=== PATIENT | female | born 1985 | race Hispanic/Latino ===

== ENCOUNTER 2018-03-01 13:12 | Emergency (ER) | payer SELFPAY ==
--- NOTE | 2018-03-01 13:46 | EDPHYS ---
Physician Documentation [facility] Name: Kaylie Hargrove Age: 32 yrs Sex: Female : 1985 Arrival Date: 03/01/2018 Time: 13:15 Bed 24 Private MD: ED Physician Andrea Abraham HPI: 03/01 14:13 This 32 yrs old Female presents to ER via Ambulatory with complaints of Eye kdr Swelling. 14:13 The patient is experiencing matting or discharge, pain, redness, tearing, Swelling, to kdr both eyes, More on the left than right. Onset: The symptoms/episode began/occurred gradually, 3 day(s) ago. Duration: the symptoms are continuous. Aggravated by blinking. Associated signs and symptoms: Pertinent positives: None. Patient does not utilize any form of vision correction. Severity of symptoms: At their worst the symptoms were mild in the emergency department the symptoms are unchanged. The patient has not experienced similar symptoms in the past. The patient has not recently seen a physician. 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 - Social history:: Smoking status: Patient/guardian denies using tobacco. ROS: 14:13 Constitutional: Negative for fever, chills, and weight loss, Eyes: Negative for injury, kdr pain, redness, and discharge, Neck: Negative for injury, pain, and swelling, Cardiovascular: Negative for chest pain, palpitations, and edema. 14:13 ENT: Positive for Exam: 15:34 Constitutional: This is a well developed, well nourished patient who is awake, alert, kdr and in no acute distress. Head/Face: Normocephalic, atraumatic. ENT: Nares patent. No nasal discharge, no septal abnormalities noted. Tympanic membranes are normal and external auditory canals are clear. Oropharynx with no redness, swelling, or masses, exudates, or evidence of obstruction, uvula midline. Mucous membranes moist. Neck: Trachea midline, no thyromegaly or masses palpated, and no cervical lymphadenopathy. Supple, full range of motion without nuchal rigidity, or vertebral point tenderness. No Meningismus. Chest/axilla: Normal chest wall appearance and motion. Nontender with no deformity. No lesions are appreciated. 15:34 Eyes: Periorbital structures: swelling, that is mild, on the left upper eyelid, Pupils: no acute changes, equal, round, and reactive to light and accomodation, Extraocular movements: intact throughout, Conjunctiva: injected, in the left eye, Corneas: are normal, Sclera: no appreciated abnormality, Anterior chamber: normal. 15:34 Eyes: No proptosis or any evidence of retrobulbar infection or problem. kdr Vital Signs: 13:18 BP 162 / 91; Pulse 67; Resp 16; Temp 97.4; Pulse Ox 100% on R/A; Weight 86.18 kg; la1 Height 5 ft. 3 in. (160.02 cm); 13:18 Body Mass Index 33.66 (86.18 kg, 160.02 cm) la1 MDM: 13:46 Patient medically screened. kdr 15:39 Data reviewed: vital signs, nurses notes. Counseling: I had a detailed discussion with kdr the patient and/or guardian regarding: the historical points, exam findings, and any diagnostic results supporting the discharge/admit diagnosis, the need for outpatient follow up. Administered Medications: 13:50 Drug: SOLU-Medrol 125 mg Route: IM; Site: right gluteus; 3 13:52 Follow up: Response: Medication administered at discharge. tl3 Disposition: 03/01/18 13:46 Discharged to Home. Impression: Conjunctivitis. - Condition is Stable. - Discharge Instructions: Bacterial Conjunctivitis, [id number]. - Prescriptions for Medrol (Delvin) 4 mg Oral Tablets, Dose Pack - take 1 tablet by ORAL route as directed - follow package instructions; 1 packet. Erythromycin 5 mg/gram (0.5 %) Ophthalmic Ointment - apply 1 centimeter by OPHTHALMIC route 2-3 times daily for 7 days; 1 tube. - Medication Reconciliation Form, Thank You Letter, Antibiotic Education, Prescription Opioid Use, Work release form form. - Follow up: Private Physician; When: 2 - 3 days; Reason: If symptoms return, Further diagnostic work-up, Recheck today's complaints, Continuance of care, Re-evaluation by your physician. - Problem is new. - Symptoms are unchanged. Signatures: Andrea Abraham MD MD kdr Daniel Brasher RN RN la1 Vilma Fonseca, RN RN tl3
--- NOTE | 2018-03-01 13:46 | ER ---
Nurse's Notes [facility] Name: Kaylie Hargrove Age: 32 yrs Sex: Female : 1985 Arrival Date: 03/01/2018 Time: 13:15 Bed 24 Private MD: Diagnosis: Conjunctivitis Presentation: 03/01 13:17 Presenting complaint: Patient states: I have had swelling around my left eye for 3 la1 days. Transition of care: patient was not received from another setting of care. Onset of symptoms was March 01, 2018. Care prior to arrival: None. 13:17 Method Of Arrival: Ambulatory la1 13:17 Acuity: BALTAZAR 4 la1 Triage Assessment: 13:25 General: Appears in no apparent distress. Behavior is calm, cooperative. Pain:. 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 - Social history:: Smoking status: Patient/guardian denies using tobacco. Screenin:43 Abuse screen: Denies threats or abuse. Nutritional screening: No deficits noted. tl3 Tuberculosis screening: No symptoms or risk factors identified. Fall Risk None identified. Assessment: 13:43 Reassessment: pt reports that left eye has been hurting for three days, today right eye tl3 started hurting as well. Mild swelling noted to left eyelid. pt reported crusting this am when awaking, eyes are not injected or actively draining. General: Appears uncomfortable, well groomed, well developed, well nourished. Pain: Complains of pain in right eye and left eye. Neuro: Level of Consciousness is awake, alert, obeys commands, Oriented to person, place, time, situation, Appropriate for age. Cardiovascular: Heart tones S1 S2 present Capillary refill < 3 seconds in bilateral fingers. Respiratory: Airway is patent Trachea midline Respiratory effort is even, unlabored, Respiratory pattern is regular, symmetrical, Breath sounds are clear bilaterally. GI: No signs and/or symptoms were reported involving the gastrointestinal system. : No signs and/or symptoms were reported regarding the genitourinary system. EENT: No signs and/or symptoms were reported regarding the EENT system. Derm: No signs and/or symptoms reported regarding the dermatologic system. Musculoskeletal: No signs and/or symptoms reported regarding the musculoskeletal system. Vital Signs: 13:18 BP 162 / 91; Pulse 67; Resp 16; Temp 97.4; Pulse Ox 100% on R/A; Weight 86.18 kg; la1 Height 5 ft. 3 in. (160.02 cm); 13:18 Body Mass Index 33.66 (86.18 kg, 160.02 cm) la1 ED Course: 13:15 Patient arrived in ED. tw3 13:17 Triage completed. la1 13:18 Arm band placed on left wrist. la1 13:19 Andrea Abraham MD is Attending Physician. kdr 13:26 Vilma Fonseca, RN is Primary Nurse. tl3 13:43 Patient has correct armband on for positive identification. Bed in low position. Call tl3 light in reach. 13:43 No provider procedures requiring assistance completed. tl3 14:42 Patient did not have IV access during this emergency room visit. tl3 Administered Medications: 13:50 Drug: SOLU-Medrol 125 mg Route: IM; Site: right gluteus; tl3 13:52 Follow up: Response: Medication administered at discharge. tl3 Outcome: 13:46 Discharge ordered by . kdr 13:59 Patient left the ED. tl3 14:41 Discharged to home ambulatory. tl3 14:41 Condition: good 14:41 Discharge instructions given to patient, Instructed on discharge instructions, follow up and referral plans. medication usage, Demonstrated understanding of instructions, follow-up care, medications, Prescriptions given X 2. Signatures: Andrea Abraham MD MD kdr Daniel Brasher RN RN la1 Rebecca Triana tw3 Vilma Fonseca, PEGGY RN tl3 Corrections: (The following items were deleted from the chart) 13:53 13:50 SOLU-Medrol 125 mg IM in left gluteus tl3 tl3
[2018-03-01] MEDS ORDERED: METHYLPREDNISOLONE 125 MG INJ ONE (13:48)
== END 2018-03-01 13:59 | disposition home or self-care (01) ==
LOC: ER 13:12
DX: H10.9 Unspecified conjunctivitis (principal); Z88.1 Allergy status to other antibiotic agents
CPT/HCPCS: 96372; 99283; J2930

== ENCOUNTER 2018-07-21 20:55 | Emergency (ER) | payer SELFPAY ==
[2018-07-21] MEDS ORDERED: LEVALBUTEROL 1.25 MG/3 ML NEB ONE (21:19)
[2018-07-21] MEDS ORDERED: predniSONE 20 MG TAB ONE (21:20)
[2018-07-21] MEDS ORDERED: HYDROCODONE/CHLORPHEN 5 ML/OSYR ONE (21:20)
--- NOTE | 2018-07-21 21:53 | RAD REPORT ---
EXAM DESCRIPTION: Phyllis Single View07/21/2018 9:32 pm CLINICAL HISTORY: CHEST PAIN COMPARISON: none FINDINGS: The lungs appear clear of acute infiltrate. The heart is normal size IMPRESSION: No acute abnormalities displayed
--- NOTE | 2018-07-21 21:59 | ER ---
Nurse's Notes [facility] Name: Kaylie Hargrove Age: 32 yrs Sex: Female : 1985 Arrival Date: 07/21/2018 Time: 20:59 Bed 17 Private MD: Diagnosis: Asthma;Acute bronchitis;Acute suppurative otitis media Presentation: 07/21 21:00 Presenting complaint: Patient states: that for the past 2 days she has had cough with green sputum, chest congestion, right ear pain and has been light headed. Transition of care: patient was not received from another setting of care. Onset of symptoms was July 19, 2018. Risk Assessment: Do you want to hurt yourself or someone else?. Initial Sepsis Screen: Does the patient meet any 2 criteria? No. Patient's initial sepsis screen is negative. Does the patient have a suspected source of infection? No. Patient's initial sepsis screen is negative. Care prior to arrival: Medication(s) given: Mucinex and cough medication OTC. 21:00 Method Of Arrival: Ambulatory fc 21:00 Acuity: BALTAZAR 3 fc Triage Assessment: 21:09 General: Appears comfortable, obese, Behavior is calm, cooperative, appropriate for age. Pain: Complains of pain in right ear, throat and chest Pain currently is 10 out of 10 on a pain scale. Quality of pain is described as aching, Pain began 2-3 days ago. Is continuous, Aggravated by deep breathing. EENT: Reports pain in throat and right ear. Neuro: Level of Consciousness is awake, alert, obeys commands, Oriented to person, place, time, situation. Cardiovascular: No deficits noted. Respiratory: Reports shortness of breath cough that is productive, pain with cough pain with respiration. Respiratory: Onset: The symptoms/episode began/occurred gradually, the patient has mild shortness of breath. GI: No deficits noted. : No deficits noted. Derm: Skin is pink, warm \T\ dry. Musculoskeletal: Circulation, motion, and sensation intact. Capillary refill < 3 seconds, Range of motion: intact in all extremities. 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 - Social history:: Smoking status: Patient/guardian denies using tobacco, Patient/guardian denies using alcohol, street drugs. - Ebola Screening: : Patient negative for fever greater than or equal to 101.5 degrees Fahrenheit, and additional compatible Ebola Virus Disease symptoms Patient denies exposure to infectious person Patient denies travel to an Ebola-affected area in the 21 days before illness onset. Screenin:09 Abuse screen: Denies threats or abuse. Nutritional screening: No deficits noted. fc Tuberculosis screening: No symptoms or risk factors identified. Fall Risk None identified. Assessment: 21:20 General: Appears in no apparent distress. comfortable, Behavior is calm, cooperative. rv Pain: Denies pain. Neuro: Level of Consciousness is awake, alert, obeys commands, Oriented to person, place, time, situation. Cardiovascular: Capillary refill < 3 seconds Rhythm is regular. Respiratory: Airway is patent Respiratory effort is even, Breath sounds are clear bilaterally. GI: No signs and/or symptoms were reported involving the gastrointestinal system. : No signs and/or symptoms were reported regarding the genitourinary system. EENT: No signs and/or symptoms were reported regarding the EENT system. Derm: Skin is intact. Vital Signs: 21:00 BP 128 / 86; Pulse 83; Resp 18; Temp 98.8(O); Pulse Ox 99% on R/A; Weight 86.18 kg (R); fc Height 5 ft. 3 in. (160.02 cm) (R); Pain 10/10; 21:00 Body Mass Index 33.66 (86.18 kg, 160.02 cm) ED Course: 20:59 Patient arrived in ED. es 21:00 Arm band placed on Patient placed in an exam room, on a stretcher. 21:00 Patient has correct armband on for positive identification. Bed in low position. Call light in reach. 21:01 Mario Leyva PA is PHCP. jr8 21:01 Robert Denis MD is Attending Physician. jr8 21:07 Triage completed. 21:20 Initial Neb Treatment Given as ordered Patient was instructed and evaluated on rv procedure Patient tolerated procedure well without adverse effect. 21:32 X-ray completed. Portable x-ray completed in exam room. Patient tolerated procedure ml well. 21:33 XRAY Chest (1 view) In Process Unspecified. EDMS 22:29 No provider procedures requiring assistance completed. Patient did not have IV access rv during this emergency room visit. Administered Medications: 21:19 Drug: predniSONE 60 mg Route: PO; rv 21:37 Follow up: Response: No adverse reaction rv 21:19 Drug: Xopenex 1.25 mg Route: Inhalation; rv 21:19 Drug: Tussionex Pennkinetic ER 5 ml Route: PO; rv 21:37 Follow up: Response: No adverse reaction rv Outcome: 21:59 Discharge ordered by MD. sierra 22:29 Discharged to home ambulatory. rv 22:29 Condition: improved 22:29 Discharge instructions given to patient, Instructed on discharge instructions, follow up and referral plans. medication usage, Demonstrated understanding of instructions, follow-up care, medications, Prescriptions given X 2. 22:30 Patient left the ED. rv Signatures: Dispatcher [employer] EDMS Nica Jung Felicia, RN RN Candie Villasenor Josh, PA PA jr8 Jacques Angel RN RN rv Corrections: (The following items were deleted from the chart) 21:09 21:08 BP 128 / 86; Pulse 83bpm; Resp 18bpm; Pulse Ox 99% RA; Temp 98.8F Oral; 86.18 kg fc Reported; Height 5 ft. 3 in. Reported; BMI: 33.6; Pain 10/10; fc
--- NOTE | 2018-07-21 22:00 | EDPHYS ---
Physician Documentation [facility] Name: Kaylie Hargrove Age: 32 yrs Sex: Female : 1985 Arrival Date: 07/21/2018 Time: 20:59 Bed 17 Private MD: ED Physician Robert Denis HPI: 07/21 21:56 This 32 yrs old Female presents to ER via Ambulatory with complaints of Chest jr8 Congestion, Dizziness, Cough, Breathing Difficulty. 21:56 Onset: The symptoms/episode began/occurred acutely, 3 day(s) ago. Severity of symptoms: jr8 At their worst the symptoms were moderate, in the emergency department the symptoms are unchanged. Modifying factors: The symptoms are alleviated by nothing, the symptoms are aggravated by nothing. Associated signs and symptoms: Pertinent positives: chest pain, with cough. The patient has not experienced similar symptoms in the past. The patient has not recently seen a physician. 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 - Social history:: Smoking status: Patient/guardian denies using tobacco, Patient/guardian denies using alcohol, street drugs. - Ebola Screening: : Patient negative for fever greater than or equal to 101.5 degrees Fahrenheit, and additional compatible Ebola Virus Disease symptoms Patient denies exposure to infectious person Patient denies travel to an Ebola-affected area in the 21 days before illness onset. ROS: 21:56 Eyes: Negative for injury, pain, redness, and discharge, ENT: Negative for injury, jr8 pain, and discharge, Neck: Negative for injury, pain, and swelling, Abdomen/GI: Negative for abdominal pain, nausea, vomiting, diarrhea, and constipation, Back: Negative for injury and pain, MS/Extremity: Negative for injury and deformity, Skin: Negative for injury, rash, and discoloration, Neuro: Negative for headache, weakness, numbness, tingling, and seizure. 21:56 Cardiovascular: Positive for chest pain, with cough, Negative for edema, orthopnea, palpitations, paroxysmal nocturnal dyspnea. 21:56 Respiratory: Positive for cough, with green sputum, shortness of breath, wheezing. Exam: 21:56 Eyes: Pupils equal round and reactive to light, extra-ocular motions intact. Lids and jr8 lashes normal. Conjunctiva and sclera are non-icteric and not injected. Cornea within normal limits. Periorbital areas with no swelling, redness, or edema. ENT: Nares patent. No nasal discharge, no septal abnormalities noted. Right TM with dullness, fluid levels, and erythema. Left with TM without acute finding. External ears and auditory canals without acute finding. Oropharynx with no redness, swelling, or masses, exudates, or evidence of obstruction, uvula midline. Mucous membranes moist. Neck: Trachea midline, no thyromegaly or masses palpated, and no cervical lymphadenopathy. Supple, full range of motion without nuchal rigidity, or vertebral point tenderness. No Meningismus. Cardiovascular: Regular rate and rhythm with a normal S1 and S2. No gallops, murmurs, or rubs. Normal PMI, no JVD. No pulse deficits. Abdomen/GI: Soft, non-tender, with normal bowel sounds. No distension or tympany. No guarding or rebound. No evidence of tenderness throughout. Back: No spinal tenderness. No costovertebral tenderness. Full range of motion. Skin: Warm, dry with normal turgor. Normal color with no rashes, no lesions, and no evidence of cellulitis. MS/ Extremity: Pulses equal, no cyanosis. Neurovascular intact. Full, normal range of motion. Neuro: Awake and alert, GCS 15, oriented to person, place, time, and situation. Cranial nerves II-XII grossly intact. Motor strength 5/5 in all extremities. Sensory grossly intact. Cerebellar exam normal. Normal gait. 21:56 Respiratory: the patient does not display signs of respiratory distress, Respirations: normal, Breath sounds: wheezing: expiratory that is mild, is heard in the left upper lobe. Vital Signs: 21:00 BP 128 / 86; Pulse 83; Resp 18; Temp 98.8(O); Pulse Ox 99% on R/A; Weight 86.18 kg (R); fc Height 5 ft. 3 in. (160.02 cm) (R); Pain 10/10; 21:00 Body Mass Index 33.66 (86.18 kg, 160.02 cm) fc MDM: 21:05 Patient medically screened. jr8 21:56 Data reviewed: vital signs, nurses notes, radiologic studies, plain films, and as a jr8 result, I will discharge patient. Data interpreted: Pulse oximetry: on room air is 99 %. Interpretation: normal. Counseling: I had a detailed discussion with the patient and/or guardian regarding: the historical points, exam findings, and any diagnostic results supporting the discharge/admit diagnosis, radiology results, the need for outpatient follow up, a family practitioner, to return to the emergency department if symptoms worsen or persist or if there are any questions or concerns that arise at home. 07/21 21:08 Order name: XRAY Chest (1 view); Complete Time: 21:56 jr8 Administered Medications: 21:19 Drug: predniSONE 60 mg Route: PO; rv 21:37 Follow up: Response: No adverse reaction rv 21:19 Drug: Xopenex 1.25 mg Route: Inhalation; rv 21:19 Drug: Tussionex Pennkinetic ER 5 ml Route: PO; rv 21:37 Follow up: Response: No adverse reaction rv Disposition: 07/22 00:15 Co-signature as Attending Physician, Robert Denis MD. pkprincess Disposition: 07/21/18 21:59 Discharged to Home. Impression: Asthma, Acute bronchitis, Acute suppurative otitis media. - Condition is Stable. - Discharge Instructions: Acute Bronchitis, Adult, Otitis Media, Adult, Asthma, Acute Bronchospasm, Dental Work and . - Prescriptions for Zithromax Z- Delvin 250 mg Oral Tablet - take 1 tablet by ORAL route as directed for 5 days Day 1 - take two (2) tablets one time. Day 2, 3, 4 , 5 take one (1) tablet once daily.; 6 tablet. Prednisone 20 mg Oral Tablet - take 2 tablet by ORAL route once daily for 5 days; 10 tablet. - Medication Reconciliation Form, Thank You Letter, Antibiotic Education, Prescription Opioid Use, Work release form form. - Follow up: Private Physician; When: 1 week; Reason: Recheck today's complaints, Continuance of care, Re-evaluation by your physician. - Problem is new. - Symptoms have improved. Signatures: Dispatcher [employer] EDRobert Madden MD MD pkFanny Chen RN RN Mario Stinson PA PA jr8 Jacques Angel, RN RN rv Corrections: (The following items were deleted from the chart) 07/21 22:30 21:59 07/21/2018 21:59 Discharged to Home. Impression: Asthma; Acute bronchitis; Acute rv suppurative otitis media. Condition is Stable. Forms are Medication Reconciliation Form, Thank You Letter, Antibiotic Education, Prescription Opioid Use. Follow up: Private Physician; When: 1 week; Reason: Recheck today's complaints, Continuance of care, Re-evaluation by your physician. Problem is new. Symptoms have improved. jr8
== END 2018-07-21 22:30 | disposition home or self-care (01) ==
LOC: ER 20:55
DX: J20.9 Acute bronchitis, unspecified (principal); J45.909 Unspecified asthma, uncomplicated; H66.009 Acute suppurative otitis media without spontaneous rupture of ear drum, unspecified ear; E66.9 Obesity, unspecified; Z68.33 Body mass index [BMI] 33.0-33.9, adult; Z88.1 Allergy status to other antibiotic agents
CPT/HCPCS: 71045; 99284; J7512

== ENCOUNTER 2018-10-13 22:41 | Emergency (ER) | payer SELFPAY ==
--- NOTE | 2018-10-13 23:16 | ER ---
Nurse's Notes [facility] Name: Kaylie Hargrove Age: 32 yrs Sex: Female : 1985 Arrival Date: 10/13/2018 Time: 22:46 Bed 18 Private MD: Diagnosis: Hordeolum externum left upper eyelid Presentation: 10/13 23:01 Presenting complaint: Patient states: Woke up this morning with bump to outer left lp1 upper eyelid, painful, states "it feels like its draining and making my vision blurry"; Denies any fever. Transition of care: patient was not received from another setting of care. Onset of symptoms was October 13, 2018. Risk Assessment: Do you want to hurt yourself or someone else? Patient reports no desire to harm self or others. Initial Sepsis Screen: Does the patient meet any 2 criteria? No. Patient's initial sepsis screen is negative. Does the patient have a suspected source of infection? No. Patient's initial sepsis screen is negative. Care prior to arrival: None. 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 - Social history:: Smoking status: Patient/guardian denies using tobacco. - Ebola Screening: : No symptoms or risks identified at this time. Screenin:03 Abuse screen: Denies threats or abuse. Denies injuries from another. Nutritional lp1 screening: No deficits noted. Tuberculosis screening: No symptoms or risk factors identified. Fall Risk None identified. Assessment: 23:04 General: Appears in no apparent distress. uncomfortable, Behavior is calm, cooperative, jd3 appropriate for age. Pain: Complains of pain in left eye Quality of pain is described as pressure, sharp. Neuro: Level of Consciousness is awake, alert, obeys commands, Oriented to person, place, time, situation. Cardiovascular: Capillary refill < 3 seconds Patient's skin is warm and dry. Respiratory: Airway is patent Respiratory effort is even, unlabored, Respiratory pattern is regular, symmetrical. GI: No signs and/or symptoms were reported involving the gastrointestinal system. : No signs and/or symptoms were reported regarding the genitourinary system. EENT: Sclera/Cornea are clear in right eye and left eye Reports pain in left eye. Derm: Skin is intact, Skin is dry, Skin is normal, Skin temperature is warm. Musculoskeletal: Circulation, motion, and sensation intact. Range of motion: intact in all extremities. Vital Signs: 23:02 BP 152 / 99; Pulse 80; Resp 18; Temp 99(O); Pulse Ox 100% on R/A; Weight 83.46 kg; lp1 Height 5 ft. 2 in. (157.48 cm); Pain 10/10; 23:31 BP 148 / 72; Pulse 78; Resp 18; Pulse Ox 99% on R/A; lp1 23:02 Body Mass Index 33.65 (83.46 kg, 157.48 cm) lp1 Visual Acuity: 23:04 Left Eye Visual acuity 20/70, Pupil size 3 mm, Normal, React To Light, Reactive To jd3 Accomodation; Right Eye Visual acuity 20/15, Pupil size 3 mm, Normal, React To Light, Reactive To Accomodation; Both Eyes Visual acuity 20/25; Without Lenses; ED Course: 22:46 Patient arrived in ED. es 23:01 Nabeel Devine, VIVIANA is PHCP. pm1 23:01 Marco A Wilson MD is Attending Physician. pm1 23:02 Triage completed. lp1 23:03 Arm band placed on right wrist. lp1 23:03 Patient has correct armband on for positive identification. lp1 23:04 Jae Garcia RN is Primary Nurse. jd3 23:28 No provider procedures requiring assistance completed. Patient did not have IV access lp1 during this emergency room visit. Administered Medications: 23:39 Drug: Tylenol 1000 mg Route: PO; lp1 23:39 Follow up: Response: Medication administered at discharge. lp1 Outcome: 23:15 Discharge ordered by . pm1 23:39 Discharged to home ambulatory. lp1 23:39 Condition: good 23:39 Discharge instructions given to patient, Instructed on discharge instructions, follow up and referral plans. medication usage, Demonstrated understanding of instructions, follow-up care, medications, Prescriptions given X 1. 23:39 Patient left the ED. lp1 Signatures: Nica Jung Laura, RN RN lp1 Nabeel Devine, LEAD SYSTEMS ARCHITECT LEAD SYSTEMS ARCHITECT pm1 Jae Garcia RN RN jd3
--- NOTE | 2018-10-13 23:16 | EDPHYS ---
Physician Documentation [facility] Name: Kaylie Hargrove Age: 32 yrs Sex: Female : 1985 Arrival Date: 10/13/2018 Time: 22:46 Bed 18 Private MD: ED Physician Marco A Wilson HPI: 10/13 23:11 This 32 yrs old Female presents to ER via Ambulatory with complaints of Left pm1 Eyelid swelling and pain. 23:11 The patient is experiencing pain, to the left eye, caused by an unknown mechanism. pm1 Onset: The symptoms/episode began/occurred this morning. Duration: the symptoms are continuous. Alleviated by heat application. Associated signs and symptoms: Pertinent negatives: fever. Patient does not utilize any form of vision correction. Severity of symptoms: in the emergency department the symptoms have improved. The patient has not experienced similar symptoms in the past. The patient has not recently seen a physician. 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 - Social history:: Smoking status: Patient/guardian denies using tobacco. - Ebola Screening: : No symptoms or risks identified at this time. ROS: 23:11 Constitutional: Negative for fever, chills, and weight loss. pm1 23:11 ENT: Negative for injury, pain, and discharge, Neck: Negative for injury, pain, and swelling, Cardiovascular: Negative for chest pain, palpitations, and edema, Respiratory: Negative for shortness of breath, cough, wheezing, and pleuritic chest pain, Abdomen/GI: Negative for abdominal pain, nausea, vomiting, diarrhea, and constipation, Back: Negative for injury and pain, MS/Extremity: Negative for injury and deformity, Skin: Negative for injury, rash, and discoloration, Neuro: Negative for headache, weakness, numbness, tingling, and seizure. 23:11 Eyes: Positive for pain, swelling, of the lateral aspect of left upper eyelid, Negative for discharge, itching, matting. Exam: 23:11 Constitutional: This is a well developed, well nourished patient who is awake, alert, pm1 and in no acute distress. Head/Face: Normocephalic, atraumatic. 23:11 Neck: Trachea midline, no thyromegaly or masses palpated, and no cervical lymphadenopathy. Supple, full range of motion without nuchal rigidity, or vertebral point tenderness. No Meningismus. Chest/axilla: Normal chest wall appearance and motion. Nontender with no deformity. No lesions are appreciated. Cardiovascular: Regular rate and rhythm with a normal S1 and S2. No gallops, murmurs, or rubs. Normal PMI, no JVD. No pulse deficits. Respiratory: Lungs have equal breath sounds bilaterally, clear to auscultation and percussion. No rales, rhonchi or wheezes noted. No increased work of breathing, no retractions or nasal flaring. Abdomen/GI: Soft, non-tender, with normal bowel sounds. No distension or tympany. No guarding or rebound. No evidence of tenderness throughout. Back: No spinal tenderness. No costovertebral tenderness. Full range of motion. Skin: Warm, dry with normal turgor. Normal color with no rashes, no lesions, and no evidence of cellulitis. MS/ Extremity: Pulses equal, no cyanosis. Neurovascular intact. Full, normal range of motion. 23:11 Eyes: Periorbital structures: appear normal, Pupils: no acute changes, normal size, shape is regular, Extraocular movements: intact throughout, Conjunctiva: normal, no chemosis, no excoriation, no exudate, no injection, no subconjunctival hemorrhage no abnormal tearing, Corneas: are normal, no acute changes, no evidence of abrasion, no foreign body, Sclera: no appreciated abnormality, Lids and lashes: stye, on the left lid. 23:11 Neuro: Orientation: is normal, Motor: is normal, Gait: is steady, at a normal pace, without difficulty. Vital Signs: 23:02 BP 152 / 99; Pulse 80; Resp 18; Temp 99(O); Pulse Ox 100% on R/A; Weight 83.46 kg; lp1 Height 5 ft. 2 in. (157.48 cm); Pain 10/10; 23:31 BP 148 / 72; Pulse 78; Resp 18; Pulse Ox 99% on R/A; lp1 23:02 Body Mass Index 33.65 (83.46 kg, 157.48 cm) lp1 Visual Acuity: 23:04 Left Eye Visual acuity 20/70, Pupil size 3 mm, Normal, React To Light, Reactive To jd3 Accomodation; Right Eye Visual acuity 20/15, Pupil size 3 mm, Normal, React To Light, Reactive To Accomodation; Both Eyes Visual acuity 20/25; Without Lenses; MDM: 23:01 Patient medically screened. pm1 23:14 Data reviewed: vital signs. Counseling: I had a detailed discussion with the patient pm1 and/or guardian regarding: the historical points, exam findings, and any diagnostic results supporting the discharge/admit diagnosis, the need for outpatient follow up, to return to the emergency department if symptoms worsen or persist or if there are any questions or concerns that arise at home. Administered Medications: 23:39 Drug: Tylenol 1000 mg Route: PO; lp1 23:39 Follow up: Response: Medication administered at discharge. lp1 Disposition: 10/13/18 23:15 Discharged to Home. Impression: Hordeolum externum left upper eyelid. - Condition is Stable. - Discharge Instructions: Stye. - Prescriptions for Erythromycin 5 mg/gram (0.5 %) Ophthalmic Ointment - apply 1 centimeter by OPHTHALMIC route every 8 hours for 7 days; 1 tube. - Work release form, Medication Reconciliation Form, Thank You Letter, Antibiotic Education form. - Follow up: Emergency Department; When: As needed; Reason: Worsening of condition. Follow up: Private Physician; When: 2 - 3 days; Reason: Recheck today's complaints, Continuance of care, Re-evaluation by your physician. - Problem is new. - Symptoms have improved. Addendum: 10/17/2018 04:01 Co-signature as Attending Physician, Marco A Wilson MD. g s Signatures: Yvette Borrero, PEGGY RN lp1 Nabeel Devine, DURALUMIN MECHANIC DURALUMIN MECHANIC pm1 Marco A Wilson MD MD Corrections: (The following items were deleted from the chart) 10/13 23:39 23:15 10/13/2018 23:15 Discharged to Home. Impression: Hordeolum externum left upper lp1 eyelid. Condition is Stable. Forms are Medication Reconciliation Form, Thank You Letter, Antibiotic Education, Prescription Opioid Use. Follow up: Emergency Department; When: As needed; Reason: Worsening of condition. Follow up: Private Physician; When: 2 - 3 days; Reason: Recheck today's complaints, Continuance of care, Re-evaluation by your physician. Problem is new. Symptoms have improved. pm1
[2018-10-13] MEDS ORDERED: ACETAMINOPHEN 500 MG TAB ONE ×2 (23:44)
== END 2018-10-13 23:39 | disposition home or self-care (01) ==
LOC: ER 22:41
DX: H00.014 Hordeolum externum left upper eyelid (principal)
CPT/HCPCS: 99283

== ENCOUNTER 2019-04-25 16:05 | Emergency (ER) | payer OTHER, SELFPAY ==
--- NOTE | 2019-04-25 17:06 | ER ---
Nurse's Notes [facility] Name: Kaylie Hargrove Age: 33 yrs Sex: Female : 1985 Arrival Date: 04/25/2019 Time: 16:07 Bed 10 Private MD: Diagnosis: Pain in right forearm Presentation: 04/25 16:10 Presenting complaint: Patient states: yesterday i smashed my RIGHT arm, i was closing tw2 the ladder and it smushed my arm, on my forearm wrist area. Transition of care: patient was not received from another setting of care. Onset of symptoms was April 25, 2019. Risk Assessment: Do you want to hurt yourself or someone else? Patient reports no desire to harm self or others. Initial Sepsis Screen: Does the patient meet any 2 criteria? No. Patient's initial sepsis screen is negative. Does the patient have a suspected source of infection? No. Patient's initial sepsis screen is negative. Care prior to arrival: None. 16:10 Method Of Arrival: Ambulatory tw2 16:10 Acuity: BALTAZAR 4 tw2 Triage Assessment: 16:11 General: Appears in no apparent distress. Behavior is calm, cooperative, appropriate tw2 for age. Pain: Complains of pain in right arm. Musculoskeletal: Range of motion: intact in all extremities, Swelling present in dorsal aspect of right forearm. Injury Description: ladder closed on right forearm. 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 - Social history:: Smoking status: . - Ebola Screening: : Patient denies travel to an Ebola-affected area in the 21 days before illness onset. Screenin:26 Abuse screen: Denies threats or abuse. Nutritional screening: No deficits noted. tw2 Tuberculosis screening: No symptoms or risk factors identified. Fall Risk None identified. Assessment: 16:25 General: Appears in no apparent distress. Behavior is calm, cooperative, appropriate tw2 for age. Pain: Complains of pain in right arm Cardiovascular: Patient's skin is warm and dry. Respiratory: Airway is patent Respiratory effort is even, unlabored, Respiratory pattern is regular, symmetrical. Musculoskeletal: Range of motion: limited in right wrist Swelling present in right arm. 17:12 Reassessment: Patient appears in no apparent distress at this time. No changes from tw2 previously documented assessment. Patient is alert, oriented x 3, equal unlabored respirations, skin warm/dry/pink. Vital Signs: 16:12 BP 151 / 92; Pulse 72; Resp 18; Temp 97.7; Pulse Ox 98% on R/A; Weight 86.18 kg; Height tw2 5 ft. 2 in. (157.48 cm); Pain 8/10; 16:12 Body Mass Index 34.75 (86.18 kg, 157.48 cm) tw2 ED Course: 16:07 Patient arrived in ED. rg4 16:11 Triage completed. tw2 16:11 Arm band placed on. tw2 16:12 Bed in low position. Call light in reach. tw2 16:25 Dasia Logan [facility]-C [facility]. kb 16:25 Asher Smith MD is Attending Physician. kb 16:25 Judith Ruth, PEGGY is Primary Nurse. tw2 16:57 Forearm Right XRAY In Process Unspecified. EDMS 17:12 No provider procedures requiring assistance completed. Patient did not have IV access tw2 during this emergency room visit. Administered Medications: 16:58 Drug: [place] 5 mg-325 mg 1 tabs Route: PO; tw2 17:12 Follow up: Response: No adverse reaction; Pain is decreased tw2 Outcome: 17:06 Discharge ordered by . kb 17:12 Discharged to home ambulatory, with family. tw2 17:12 Condition: stable 17:12 Discharge instructions given to patient, family, Instructed on discharge instructions, follow up and referral plans. medication usage, Demonstrated understanding of instructions, follow-up care, medications, Prescriptions given X 1. 17:12 Patient left the ED. tw2 Signatures: Dispatcher [employer] EDMS Dasia Logan FNP-C FNP-Ckb Wise, Tara, RN RN tw2 Rhoda Florez rg4
--- NOTE | 2019-04-25 17:06 | EDPHYS ---
Physician Documentation [facility] Name: Kaylie Hargrove Age: 33 yrs Sex: Female : 1985 Arrival Date: 04/25/2019 Time: 16:07 Bed 10 Private MD: ED Physician Asher Smith HPI: 04/25 16:29 This 33 yrs old Female presents to ER via Ambulatory with complaints of Arm kb Injury. 16:29 The patient or guardian complains of injury, pain, swelling. The complaints affect the kb right forearm. Context: The problem was sustained at home, resulted from a crush injury, ladder closed on arm. Onset: The symptoms/episode began/occurred yesterday. Treatment prior to arrival includes: no previous treatment. Modifying factors: The symptoms are alleviated by nothing. the symptoms are aggravated by nothing. Associated signs and symptoms: Pertinent positives: pain, swelling, Pertinent negatives: decreased range of motion, deformity, erythema, fever, nausea, numbness, tingling, vomiting, warmth, weakness. Severity of symptoms: At their worst the symptoms were moderate, in the emergency department the symptoms are unchanged. The patient has not experienced similar symptoms in the past. The patient has not recently seen a physician. Pt reports she was shutting a ladder and it closed on her right forearm. Occurred yesterday. 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 - Social history:: Smoking status: . - Ebola Screening: : Patient denies travel to an Ebola-affected area in the 21 days before illness onset. ROS: 16:29 Constitutional: Negative for fever, chills, and weight loss, Neck: Negative for injury, kb pain, and swelling, Cardiovascular: Negative for chest pain, palpitations, and edema, Respiratory: Negative for shortness of breath, cough, wheezing, and pleuritic chest pain, Abdomen/GI: Negative for abdominal pain, nausea, vomiting, diarrhea, and constipation, Skin: Negative for injury, rash, and discoloration, Neuro: Negative for headache, weakness, numbness, tingling, and seizure. 16:29 MS/extremity: Positive for injury or acute deformity, pain, swelling, of the dorsal aspect of right forearm. Exam: 16:28 Constitutional: This is a well developed, well nourished patient who is awake, alert, kb and in no acute distress. Head/Face: Normocephalic, atraumatic. Chest/axilla: Normal chest wall appearance and motion. Nontender with no deformity. No lesions are appreciated. Cardiovascular: Regular rate and rhythm with a normal S1 and S2. No gallops, murmurs, or rubs. Normal PMI, no JVD. No pulse deficits. Respiratory: Lungs have equal breath sounds bilaterally, clear to auscultation and percussion. No rales, rhonchi or wheezes noted. No increased work of breathing, no retractions or nasal flaring. Abdomen/GI: Soft, non-tender, with normal bowel sounds. No distension or tympany. No guarding or rebound. No evidence of tenderness throughout. Back: No spinal tenderness. No costovertebral tenderness. Full range of motion. Skin: Warm, dry with normal turgor. Normal color with no rashes, no lesions, and no evidence of cellulitis. Neuro: Awake and alert, GCS 15, oriented to person, place, time, and situation. Cranial nerves II-XII grossly intact. Motor strength 5/5 in all extremities. Sensory grossly intact. Cerebellar exam normal. Normal gait. 16:28 Musculoskeletal/extremity: Extremities: grossly normal except: noted in the dorsal aspect of right forearm: pain, swelling, ROM: intact in all extremities, Circulation is intact in all extremities. Sensation intact. Vital Signs: 16:12 BP 151 / 92; Pulse 72; Resp 18; Temp 97.7; Pulse Ox 98% on R/A; Weight 86.18 kg; Height tw2 5 ft. 2 in. (157.48 cm); Pain 8/10; 16:12 Body Mass Index 34.75 (86.18 kg, 157.48 cm) tw2 MDM: 16:26 Patient medically screened. kb 16:28 Data reviewed: vital signs, nurses notes. Data interpreted: Pulse oximetry: on room air kb is 98 %. Interpretation: normal. 17:05 Counseling: I had a detailed discussion with the patient and/or guardian regarding: the kb historical points, exam findings, and any diagnostic results supporting the discharge/admit diagnosis, radiology results, the need for outpatient follow up, a family practitioner, to return to the emergency department if symptoms worsen or persist or if there are any questions or concerns that arise at home. 04/25 16:18 Order name: Forearm Right XRAY snw Administered Medications: 16:58 Drug: [place] 5 mg-325 mg 1 tabs Route: PO; tw2 17:12 Follow up: Response: No adverse reaction; Pain is decreased tw2 Disposition: 04/26 07:03 Co-signature as Attending Physician, Asher Smith MD. rn Disposition: 04/25/19 17:06 Discharged to Home. Impression: Pain in right forearm. - Condition is Stable. - Discharge Instructions: Musculoskeletal Pain. - Prescriptions for Diclofenac Sodium 75 mg Oral Tablet, Delayed Release (E.C.) - take 1 tablet by ORAL route 2 times per day As needed; 30 tablet. - Medication Reconciliation Form, Thank You Letter, Antibiotic Education, Prescription Opioid Use, Work release form form. - Follow up: Emergency Department; When: As needed; Reason: Worsening of condition. Follow up: Private Physician; When: 2 - 3 days; Reason: Recheck today's complaints, Continuance of care, Re-evaluation by your physician. Signatures: Dispatcher [employer] EDMS Dasia Logan, FORMING ROLL OPERATOR HEAVY DUTY-C FORMING ROLL OPERATOR HEAVY DUTY-Asher Ding MD MD rn Wise, Tara, RN RN tw2 Corrections: (The following items were deleted from the chart) 04/25 17:12 17:06 04/25/2019 17:06 Discharged to Home. Impression: Pain in right forearm. Condition tw2 is Stable. Forms are Work release form, Medication Reconciliation Form, Thank You Letter, Antibiotic Education, Prescription Opioid Use. Follow up: Emergency Department; When: As needed; Reason: Worsening of condition. Follow up: Private Physician; When: 2 - 3 days; Reason: Recheck today's complaints, Continuance of care, Re-evaluation by your physician. kb
[2019-04-25] MEDS ORDERED: HYDROCODONE/APAP 5/325 MG TAB ONE (17:13)
--- NOTE | 2019-04-25 17:27 | RAD REPORT ---
EXAM DESCRIPTION: RAD - Forearm Right - 04/25/2019 5:02 pm CLINICAL HISTORY: Right arm pain FINDINGS: No fracture is seen.
== END 2019-04-25 17:12 | disposition home or self-care (01) ==
LOC: ER 16:05
DX: M79.631 Pain in right forearm (principal); W23.0XXA Caught, crushed, jammed, or pinched between moving objects, initial encounter; Y93.89 Activity, other specified; Y92.9 Unspecified place or not applicable; Z88.1 Allergy status to other antibiotic agents
CPT/HCPCS: 99283

== ENCOUNTER 2019-06-13 14:44 | Emergency (ER) | payer OTHER, SELFPAY ==
--- NOTE | 2019-06-13 15:42 | ER ---
Nurse's Notes [facility] Name: Kaylie Hargrove Age: 33 yrs Sex: Female : 1985 Arrival Date: 06/13/2019 Time: 14:44 Bed 10 Private MD: Diagnosis: Acute pharyngitis Presentation: 06/13 14:49 Presenting complaint: Patient states: Sore throat for the past 2 days. Reports that she aj1 thinks that she has run fever at home but she isnt sure. Transition of care: patient was not received from another setting of care. Onset of symptoms was June 11, 2019. Risk Assessment: Do you want to hurt yourself or someone else? Patient reports no desire to harm self or others. Initial Sepsis Screen: Does the patient meet any 2 criteria? No. Patient's initial sepsis screen is negative. Does the patient have a suspected source of infection? No. Patient's initial sepsis screen is negative. Care prior to arrival: None. 14:49 Method Of Arrival: Ambulatory [facility] 14:49 Acuity: BALTAZAR 4 aj1 Triage Assessment: 14:50 General: Appears in no apparent distress. comfortable, Behavior is calm, cooperative, aj1 appropriate for age. Pain: Complains of pain in left aspect of posterior pharynx and right aspect of posterior pharynx Pain currently is 8 out of 10 on a pain scale. EENT: Reports sore throat. EENT: Throat is reddened has enlarged tonsils bilaterally. Neuro: Level of Consciousness is awake, alert, obeys commands, Oriented to person, place, time, situation. Cardiovascular: Patient's skin is warm and dry. Respiratory: Airway is patent Respiratory effort is even, unlabored, Respiratory pattern is regular, symmetrical. GI: No signs and/or symptoms were reported involving the gastrointestinal system. : No signs and/or symptoms were reported regarding the genitourinary system. Derm: No signs and/or symptoms reported regarding the dermatologic system. Skin is pink, warm \T\ dry. normal. Musculoskeletal: No signs and/or symptoms reported regarding the musculoskeletal system. Circulation, motion, and sensation intact. 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 - Social history:: Smoking status: Patient/guardian denies using tobacco. - Ebola Screening: : Patient denies travel to an Ebola-affected area in the 21 days before illness onset. Screenin:56 Abuse screen: Denies threats or abuse. Denies injuries from another. Nutritional aj1 screening: No deficits noted. Tuberculosis screening: No symptoms or risk factors identified. Fall Risk None identified. Assessment: 14:56 Reassessment: see triage assessment. aj1 15:50 Reassessment: Patient is alert, oriented x 3, equal unlabored respirations, skin aa5 warm/dry/pink. Vital Signs: 14:50 BP 161 / 85; Pulse 70; Resp 18; Temp 98.3; Pulse Ox 99% on R/A; Weight 83.91 kg (R); aj1 Height 5 ft. 2 in. (157.48 cm) (R); Pain 8/10; 14:50 Body Mass Index 33.84 (83.91 kg, 157.48 cm) aj1 ED Course: 14:44 Patient arrived in ED. as 14:46 [facility] Molina [facility]C [facility] snw 14:46 Santos Stokes MD is Attending Physician. snw 14:50 Triage completed. aj1 14:50 Arm band placed on Patient placed in an exam room. aj1 14:56 Marian Wall, RN is Primary Nurse. aj1 14:56 Patient has correct armband on for positive identification. Call light in reach. aj1 14:56 No provider procedures requiring assistance completed. aj1 15:40 Abhinav Hernandez MD is Referral Physician. snw 15:51 Patient did not have IV access during this emergency room visit. aa5 Administered Medications: 15:32 Drug: predniSONE 40 mg Route: PO; aa5 15:32 Drug: Pepcid 20 mg Route: PO; aa5 15:32 Drug: ZyrTEC - Cetirizine 10 mg Route: PO; aa5 Outcome: 15:43 Discharge ordered by . snw 15:50 Discharged to home ambulatory. aa5 15:50 Condition: good 15:50 Discharge instructions given to patient, Instructed on discharge instructions, follow up and referral plans. medication usage, Demonstrated understanding of instructions, follow-up care, medications, Prescriptions given X 3. 15:51 Patient left the ED. aa5 Signatures: Marian Wall RN RN aj1 Caroline Molina, MARINE EXTENSION AGENT-C MARINE EXTENSION AGENT-Csnw Melanie Sanchez as Kat Montejo RN RN aa5 Corrections: (The following items were deleted from the chart) 14:54 14:50 EENT: Throat is reddened has patchy exudate has enlarged tonsils bilaterally aj1 aj1 15:51 15:40 Discharge ordered by MD. lopez aa5
--- NOTE | 2019-06-13 15:42 | EDPHYS ---
Physician Documentation [facility] Name: Kaylie Hargrove Age: 33 yrs Sex: Female : 1985 Arrival Date: 06/13/2019 Time: 14:44 Bed 10 Private MD: ED Physician Santos Stokes HPI: 06/13 15:15 This 33 yrs old Female presents to ER via Ambulatory with complaints of Sore snw Throat. 15:15 The patient presents with sore throat, dysphagia, of both solids and liquids. The snw patient describes throat pain as scratchy, suffocating. Onset: The symptoms/episode began/occurred suddenly, 2 day(s) ago, and became worse. Severity of symptoms: At their worst the symptoms were moderate. Associated signs and symptoms: Pertinent positives: fever, flu-like symptoms, Sore throat. It is unknown whether or not the patient has had similar symptoms in the past. The patient has not recently seen a physician. 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 - Social history:: Smoking status: Patient/guardian denies using tobacco. - Ebola Screening: : Patient denies travel to an Ebola-affected area in the 21 days before illness onset. ROS: 15:15 Constitutional: Negative for fever, chills, and weight loss, Eyes: Negative for injury, snw pain, redness, and discharge, Neck: Negative for injury, pain, and swelling, Cardiovascular: Negative for chest pain, palpitations, and edema, Respiratory: Negative for shortness of breath, cough, wheezing, and pleuritic chest pain, Abdomen/GI: Negative for abdominal pain, nausea, vomiting, diarrhea, and constipation, Back: Negative for injury and pain, : Negative for injury, bleeding, discharge, and swelling, MS/Extremity: Negative for injury and deformity, Skin: Negative for injury, rash, and discoloration, Neuro: Negative for headache, weakness, numbness, tingling, and seizure. 15:15 ENT: Positive for sore throat, ear pressure. Exam: 15:10 Constitutional: This is a well developed, well nourished patient who is awake, alert, snw and in no acute distress. Head/Face: Normocephalic, atraumatic. Eyes: Pupils equal round and reactive to light, extra-ocular motions intact. Lids and lashes normal. Conjunctiva and sclera are non-icteric and not injected. Cornea within normal limits. Periorbital areas with no swelling, redness, or edema. Neck: Trachea midline, no thyromegaly or masses palpated, and no cervical lymphadenopathy. Supple, full range of motion without nuchal rigidity, or vertebral point tenderness. No Meningismus. Chest/axilla: Normal chest wall appearance and motion. Nontender with no deformity. No lesions are appreciated. Cardiovascular: Regular rate and rhythm with a normal S1 and S2. No gallops, murmurs, or rubs. Normal PMI, no JVD. No pulse deficits. Respiratory: Lungs have equal breath sounds bilaterally, clear to auscultation and percussion. No rales, rhonchi or wheezes noted. No increased work of breathing, no retractions or nasal flaring. Abdomen/GI: Soft, non-tender, with normal bowel sounds. No distension or tympany. No guarding or rebound. No evidence of tenderness throughout. Back: No spinal tenderness. No costovertebral tenderness. Full range of motion. Skin: Warm, dry with normal turgor. Normal color with no rashes, no lesions, and no evidence of cellulitis. MS/ Extremity: Pulses equal, no cyanosis. Neurovascular intact. Full, normal range of motion. Neuro: Awake and alert, GCS 15, oriented to person, place, time, and situation. Cranial nerves II-XII grossly intact. Motor strength 5/5 in all extremities. Sensory grossly intact. Cerebellar exam normal. Normal gait. Psych: Awake, alert, with orientation to person, place and time. Behavior, mood, and affect are within normal limits. 15:10 ENT: External ear(s): are unremarkable, TM's: fluid levels, scarring bilaterally, probable chronic perf of left tm, Nose: is normal, Mouth: is normal, Posterior pharynx: swelling, that is mild, erythema, that is moderate, Voice: is hoarse. Vital Signs: 14:50 BP 161 / 85; Pulse 70; Resp 18; Temp 98.3; Pulse Ox 99% on R/A; Weight 83.91 kg (R); aj1 Height 5 ft. 2 in. (157.48 cm) (R); Pain 8/10; 14:50 Body Mass Index 33.84 (83.91 kg, 157.48 cm) aj1 MDM: 14:57 Patient medically screened. basilia 14:58 Patient medically screened. snw 15:42 Data reviewed: vital signs, nurses notes. Data interpreted: Pulse oximetry: on room air snw is 99 %. Interpretation: normal. Counseling: I had a detailed discussion with the patient and/or guardian regarding: the historical points, exam findings, and any diagnostic results supporting the discharge/admit diagnosis, the presence of at least one elevated blood pressure reading (>120/80) during this emergency department visit, lab results, the need for outpatient follow up, to return to the emergency department if symptoms worsen or persist or if there are any questions or concerns that arise at home. 06/13 14:50 Order name: Strep; Complete Time: 15:18 [facility] 06/13 15:14 Order name: Throat Culture EDMS Administered Medications: 15:32 Drug: predniSONE 40 mg Route: PO; aa5 15:32 Drug: Pepcid 20 mg Route: PO; aa5 15:32 Drug: ZyrTEC - Cetirizine 10 mg Route: PO; aa5 Disposition: 06/14 11:21 Co-signature as Attending Physician, Santos Stokes MD I agree with the assessment and [facility] plan of care. Disposition: 06/13/19 15:43 Discharged to Home. Impression: Acute pharyngitis. - Condition is Stable. - Discharge Instructions: Fever, Adult, Hypertension, Pharyngitis, Rehydration, Adult. - Prescriptions for Tessalon Perles 100 mg Oral Capsule - take 1 capsule by ORAL route every 8 hours As needed; 15 capsule. Prednisone 20 mg Oral Tablet - take 2 tablet by ORAL route once daily for 5 days; 10 tablet. Pepcid 20 mg Oral Tablet - take 1 tablet by ORAL route once daily for 10 days; 10 tablet. - Work release form, Medication Reconciliation Form, Thank You Letter, Antibiotic Education, Prescription Opioid Use form. - Follow up: Private Physician; When: 2 - 3 days; Reason: Recheck today's complaints, Continuance of care, Re-evaluation by your physician. Follow up: Emergency Department; When: As needed; Reason: Worsening of condition. Signatures: Dispatcher [employer] Marian Valles, RN RN aj1 Santos Stokes MD MD cha Therrien, Shelly, BALLET SOLOIST-C BALLET SOLOIST-Csnw Kat Montejo, RN RN aa5 Corrections: (The following items were deleted from the chart) 06/13 15:16 15:13 Eyes: Negative for injury, pain, redness, and discharge, ENT: Negative for snw injury, pain, and discharge, Neck: Negative for injury, pain, and swelling, Cardiovascular: Negative for chest pain, palpitations, and edema, snw 15:42 15:40 06/13/2019 15:40 Discharged to Home. Impression: Unspecified sprain of left foot. snw Condition is Stable. Forms are Medication Reconciliation Form, Thank You Letter, Antibiotic Education, Prescription Opioid Use. Follow up: Abhinav Hernandez; When: 5 - 6 days; Reason: Recheck today's complaints, Continuance of care. snw 15:51 15:43 06/13/2019 15:43 Discharged to Home. Impression: Acute pharyngitis. Condition is aa5 Stable. Prescriptions for Mobic 7.5 mg Oral Tablet - take 1 tablet by ORAL route once daily take with food; 20 tablet. and Forms are Medication Reconciliation Form, Thank You Letter, Antibiotic Education, Prescription Opioid Use. Follow up: Private Physician; When: 2 - 3 days; Reason: Recheck today's complaints, Continuance of care, Re-evaluation by your physician. Follow up: Emergency Department; When: As needed; Reason: Worsening of condition. snw
[2019-06-13] MEDS ORDERED: CETIRIZINE HCL 5 MG TABLET ONE (15:47)
[2019-06-13] MEDS ORDERED: FAMOTIDINE 20 MG TAB ONE (15:48)
[2019-06-13] MEDS ORDERED: predniSONE 20 MG TAB ONE (15:48)
== END 2019-06-13 15:51 | disposition home or self-care (01) ==
LOC: ER 14:44
DX: J02.9 Acute pharyngitis, unspecified (principal); Z88.1 Allergy status to other antibiotic agents
CPT/HCPCS: 87070; 87081; 99283; J7512

== ENCOUNTER 2020-01-18 19:01 | Emergency (ER) | payer SELFPAY ==
--- NOTE | 2020-01-18 20:53 | RAD REPORT ---
EXAM DESCRIPTION: RAD - Chest Pa And Lat (2 Views) - 01/18/2020 8:17 pm CLINICAL HISTORY: Cough;Chest pain COMPARISON: Chest Single View dated 07/21/2018 TECHNIQUE: Frontal and lateral views of the chest were obtained. FINDINGS: The lungs are clear. Heart size is normal and central vasculature is within normal limit s. No pleural effusion or pneumothorax seen. No acute bony finding noted. No aortic abnormality. IMPRESSION: No acute cardiopulmonary process.
--- NOTE | 2020-01-18 21:10 | EDPHYS ---
Physician Documentation [facility] Name: Kaylie Hargrove Age: 34 yrs Sex: Female : 1985 Arrival Date: 01/18/2020 Time: 19:08 Bed 20 Private MD: ED Physician Asher Smith HPI: 01/17 19:59 This 34 yrs old Female presents to ER via Ambulatory with complaints of Chest rn Pain, Cough, Congestion. 19:59 The patient or guardian reports chest pain that is located primarily in the chest rn diffusely. The pain does not radiate. Associated signs and symptoms: Pertinent positives: cough, Pertinent negatives: abdominal pain, lower extremity swelling, palpitations, recent travel, syncope. The chest pain is described as sharp, stabbing. Duration: The patient or guardian reports multiple episodes, that are intermittent. Modifying factors: The symptoms are alleviated by nothing. the symptoms are aggravated by cough, deep breath. Severity of pain: At its worst the pain was moderate in the emergency department the pain is unchanged. The patient has not experienced similar symptoms in the past. The patient has not recently seen a physician. Reports bilateral chest pain, intermittent, sharp with deep breath and cough, assoc with subjective fever/runny nose/cough/sore throat. . 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 Patient has never been vaccinated. - Social history:: Smoking status: Patient denies any tobacco usage or history of. - Family history:: not pertinent. - Hospitalizations: : No recent hospitalization is reported. ROS: 19:59 Constitutional: + fever Eyes: Negative for injury, pain, redness, and discharge, ENT: + rn sore throat and nasal congestion Neck: Negative for injury, pain, and swelling, Cardiovascular: Negative for palpitations, and edema, Respiratory: + cough and pleuritic chest pain Abdomen/GI: Negative for abdominal pain, diarrhea, and constipation, MS/Extremity: Negative for injury and deformity, Skin: Negative for injury, rash, and discoloration, Neuro: Negative for headache, numbness, tingling, and seizure. Exam: 19:59 Constitutional: This is a well developed, well nourished patient who is awake, alert, rn and in no acute distress. Head/Face: Normocephalic, atraumatic. ENT: MMM, + constant sniffling, clear nasal drainage, + mild pharyngeal erythema without exudate or swelling Cardiovascular: Regular rate and rhythm. No pulse deficits. Respiratory: Lungs have equal breath sounds bilaterally, clear to auscultation. No increased work of breathing, no retractions or nasal flaring. Skin: Warm, dry MS/ Extremity: Pulses equal, no cyanosis. Neurovascular intact. Full, normal range of motion. Equal circumference. Neuro: Awake and alert, GCS 15 Vital Signs: 19:15 BP 143 / 96; Pulse 65; Resp 16 S; Temp 98.3(O); Pulse Ox 100% on R/A; Weight 86.18 kg bb (R); Height 5 ft. 2 in. (157.48 cm) (R); Pain 7/10; 19:30 BP 140 / 71; Pulse 63; Resp 18; Temp 97.8; Pulse Ox 100% ; Pain 0/10; jv1 20:30 BP 130 / 70; Pulse 66; Resp 18; Temp 98; Pulse Ox 99% ; Pain 0/10; jv1 21:30 BP 135 / 75; Pulse 62; Resp 18; Temp 98.5; Pulse Ox 99% ; Pain 0/10; jv1 19:15 Body Mass Index 34.75 (86.18 kg, 157.48 cm) MDM: 19:56 Patient medically screened. rn 21:08 Differential diagnosis: chest wall pain, pleurisy, pneumonia, pneumothorax, flu, viral rn syndrome. Data reviewed: vital signs, nurses notes, lab test result(s), radiologic studies, plain films, and as a result, I will discharge patient. Counseling: I had a detailed discussion with the patient and/or guardian regarding: the historical points, exam findings, and any diagnostic results supporting the discharge/admit diagnosis, lab results, radiology results, the need for outpatient follow up, to return to the emergency department if symptoms worsen or persist or if there are any questions or concerns that arise at home. Special discussion: I discussed with the patient/guardian in detail that at this point there is no indication for admission to the hospital. It is understood, however, that if the symptoms persist or worsen the patient needs to return immediately for re-evaluation. 01/17 19:19 Order name: Flu; Complete Time: 19:56 bb 01/17 19:59 Order name: XRAY Chest Pa And Lat (2 Views); Complete Time: 21:08 rn Administered Medications: No medications were administered Disposition: 01/18/20 21:09 Discharged to Home. Impression: Pleurisy, Viral syndrome. - Condition is Stable. - Discharge Instructions: Pleurisy, Upper Respiratory Infection, Adult, Form - Return To Work. - Medication Reconciliation Form, Thank You Letter, Antibiotic Education, Prescription Opioid Use, Work release form form. - Follow up: Private Physician; When: As needed; Reason: Recheck today's complaints, Re-evaluation by your physician. - Problem is new. - Symptoms have improved. Signatures: Dispatcher [employer] EDVT Gloria Paulson RN RN bb Asher Smith MD MD rn Vicente, Joyce, RN RN jv1 Corrections: (The following items were deleted from the chart) 21:41 21:09 01/18/2020 21:09 Discharged to Home. Impression: Pleurisy; Viral syndrome. jv1 Condition is Stable. Forms are Medication Reconciliation Form, Thank You Letter, Antibiotic Education, Prescription Opioid Use. Follow up: Private Physician; When: As needed; Reason: Recheck today's complaints, Re-evaluation by your physician. Problem is new. Symptoms have improved. rn
--- NOTE | 2020-01-18 21:10 | ER ---
Nurse's Notes [facility] Name: Kaylie Hargrove Age: 34 yrs Sex: Female : 1985 Arrival Date: 01/18/2020 Time: 19:08 Bed 20 Private MD: Diagnosis: Pleurisy;Viral syndrome Presentation: 01/17 19:15 Chief complaint: Patient states: she has been sick since Saturday with cough, congestion, bb fever, pain with inspiration and now back pain. Coronavirus screen: The patient has NOT traveled to [place] in the past 14 days. Proceed with normal triage procedures. Ebola Screen: No symptoms or risks identified at this time. Initial Sepsis Screen: Does the patient meet any 2 criteria? No. Patient's initial sepsis screen is negative. Does the patient have a suspected source of infection? No. Patient's initial sepsis screen is negative. Risk Assessment: Do you want to hurt yourself or someone else? Patient reports no desire to harm self or others. Onset of symptoms was January 15, 2020. 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 Patient has never been vaccinated. - Social history:: Smoking status: Patient denies any tobacco usage or history of. - Family history:: not pertinent. - Hospitalizations: : No recent hospitalization is reported. Screenin:36 Abuse screen: Denies threats or abuse. Nutritional screening: No deficits noted. jv1 Tuberculosis screening: No symptoms or risk factors identified. Fall Risk None identified. Assessment: 20:34 General: Appears in no apparent distress. comfortable, Behavior is calm, cooperative, jv1 appropriate for age. Neuro: Level of Consciousness is awake, alert, obeys commands, Oriented to person, place, time, situation. Cardiovascular: Denies chest pain. Respiratory: Reports cough that is non-productive, Airway is patent Respiratory effort is even, unlabored, Respiratory pattern is regular, symmetrical, Breath sounds are clear bilaterally. GI: No signs and/or symptoms were reported involving the gastrointestinal system. : No signs and/or symptoms were reported regarding the genitourinary system. EENT: No signs and/or symptoms were reported regarding the EENT system. Derm: No signs and/or symptoms reported regarding the dermatologic system. Musculoskeletal: No signs and/or symptoms reported regarding the musculoskeletal system. 20:34 Pain: Complains of pain in back Pain does not radiate. Pain currently is 5 out of 10 on jv1 a pain scale. Quality of pain is described as aching, Pain began gradually. 21:37 Reassessment: Patient appears in no apparent distress at this time. Patient is alert, jv1 oriented x 3, equal unlabored respirations, skin warm/dry/pink. Patient denies pain at this time. Patient states feeling better. Vital Signs: 19:15 BP 143 / 96; Pulse 65; Resp 16 S; Temp 98.3(O); Pulse Ox 100% on R/A; Weight 86.18 kg bb (R); Height 5 ft. 2 in. (157.48 cm) (R); Pain 7/10; 19:30 BP 140 / 71; Pulse 63; Resp 18; Temp 97.8; Pulse Ox 100% ; Pain 0/10; jv1 20:30 BP 130 / 70; Pulse 66; Resp 18; Temp 98; Pulse Ox 99% ; Pain 0/10; jv1 21:30 BP 135 / 75; Pulse 62; Resp 18; Temp 98.5; Pulse Ox 99% ; Pain 0/10; jv1 19:15 Body Mass Index 34.75 (86.18 kg, 157.48 cm) ED Course: 19:08 Patient arrived in ED. ag5 19:17 Triage completed. bb 19:18 Arm band placed on Patient placed in waiting room, Patient notified of wait time. bb 19:56 Asher Smith MD is Attending Physician. rn 19:56 Twan Fernando PA is PHCP. jmm 20:16 XRAY Chest Pa And Lat (2 Views) In Process Unspecified. EDMS 20:37 Patient has correct armband on for positive identification. Bed in low position. Call jv1 light in reach. Side rails up X 1. quality assurance monitor final on. Pulse ox on. NIBP on. 21:37 No provider procedures requiring assistance completed. Patient did not have IV access jv1 during this emergency room visit. Patient maintains SpO2 saturation greater than 95% on room air. Administered Medications: No medications were administered Outcome: 21:09 Discharge ordered by . rn 21:38 Discharged to home ambulatory. jv1 21:38 Condition: improved 21:38 Discharge instructions given to patient. 21:41 Patient left the ED. jv1 Signatures: Dispatcher [employer] EDMS Twan Fernando PA PA jmm Ballard, Brenda, RN RN Asher Mccann MD MD rn Vicente, Joyce, RN RN jNishant Contreras ag5 Corrections: (The following items were deleted from the chart) 20:41 20:34 Pain: Denies pain. jv1 jv1
[2020-01-19 00:33] VITALS: O2SAT 99
[2020-01-19 00:36] VITALS: BP 135/75; TEMP 98.5
== END 2020-01-18 21:41 | disposition home or self-care (01) ==
LOC: ER 19:01
DX: R09.1 Pleurisy (principal); B34.9 Viral infection, unspecified; Z88.1 Allergy status to other antibiotic agents; J45.909 Unspecified asthma, uncomplicated
CPT/HCPCS: 71046; 87804; 99284

== ENCOUNTER 2020-02-05 18:04 | Emergency (ER) | payer SELFPAY ==
--- NOTE | 2020-02-05 19:38 | ER ---
Nurse's Notes [facility] Name: Kaylie Hargrove Age: 34 yrs Sex: Female : 1985 Arrival Date: 02/05/2020 Time: 18:06 Bed 19 Private MD: Diagnosis: Acute upper respiratory infection, unspecified;Cough Presentation: 02/04 19:16 Chief complaint: Patient states: Cough, SOB, headache, body aches, and diarrhea, denies ph fever, chills, reports that symptoms began Tues. Coronavirus screen: The patient has NOT traveled to a country currently being monitored by the [facility] within the last 14 days. The patient has NOT had contact with any known and/or suspected case of coronavirus. Ebola Screen: No symptoms or risks identified at this time. Initial Sepsis Screen: Does the patient meet any 2 criteria? No. Patient's initial sepsis screen is negative. Does the patient have a suspected source of infection? No. Patient's initial sepsis screen is negative. Risk Assessment: Do you want to hurt yourself or someone else? Patient reports no desire to harm self or others. 19:16 Method Of Arrival: Ambulatory 19:16 Acuity: BALTAZAR 4 19:30 Onset of symptoms was February 05, 2020. Triage Assessment: 19:30 Pain: Pain currently is 4 out of 10 on a pain scale. Pain began suddenly, Also wh complains of no other associated symptoms. 19:30 Headache History: The patient has had previous headaches and this one is similar to previous episodes. 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 - Social history:: Smoking status: Patient denies any tobacco usage or history of. Screenin:30 Abuse screen: Denies threats or abuse. Denies injuries from another. Nutritional screening: No deficits noted. Tuberculosis screening: No symptoms or risk factors identified. Fall Risk None identified. Assessment: 19:30 General: Appears in no apparent distress. Behavior is calm, cooperative, appropriate wh for age. Pain: Complains of pain in headache Pain does not radiate. Neuro: Level of Consciousness is awake, alert, obeys commands, Oriented to person, place, time, situation, Appropriate for age Reports headache. Cardiovascular: Heart tones S1 S2. Respiratory: Airway is patent Respiratory effort is even, unlabored, Respiratory pattern is regular, symmetrical. Respiratory: Reports cough that is Breath sounds are clear bilaterally. GI: Abdomen is flat, non-distended. : No signs and/or symptoms were reported regarding the genitourinary system. EENT: No signs and/or symptoms were reported regarding the EENT system. Derm: Skin is intact, is healthy with good turgor, Skin is pink, warm \T\ dry. normal. Musculoskeletal: Circulation, motion, and sensation intact. Vital Signs: 19:16 BP 153 / 81; Pulse 70; Resp 18; Temp 98.0; Pulse Ox 100% on R/A; Weight 86.18 kg; ph Height 5 ft. 3 in. (160.02 cm); 19:16 Body Mass Index 33.66 (86.18 kg, 160.02 cm) ph ED Course: 18:06 Patient arrived in ED. ag5 19:18 Triage completed. ph 19:20 Santos Stokes MD is Attending Physician. [facility] 19:20 Arm band placed on Patient placed in an exam room. 19:30 Patient has correct armband on for positive identification. Bed in low position. Call light in reach. Side rails up X 1. Pulse ox on. NIBP on. 19:38 Chel Booth is Primary Nurse. 20:10 No provider procedures requiring assistance completed. Patient did not have IV access during this emergency room visit. Administered Medications: 19:42 CANCELLED (Duplicate Order): Xopenex 1.25 mg Inhalation once [facility] 19:43 CANCELLED (Duplicate Order): AtroVENT Aerosol 0.5 mg Inhalation once [facility] 19:57 Drug: Zithromax 500 mg Route: PO; 20:23 Follow up: Response: No adverse reaction 19:57 Drug: predniSONE 20 mg Route: PO; 20:23 Follow up: Response: No adverse reaction Outcome: 19:37 Discharge ordered by . [facility] 20:10 Discharged to home ambulatory. 20:10 Condition: stable 20:10 Discharge instructions given to patient, Instructed on discharge instructions, follow up and referral plans. medication usage, POC Demonstrated understanding of instructions, follow-up care, medications, POC Prescriptions given X 4. 20:24 Patient left the ED. Signatures: Santos Stokes MD MD cha Hall, Patricia, RN RN gamal Booth, Nishant Beltran ag5
--- NOTE | 2020-02-05 19:38 | EDPHYS ---
Physician Documentation [facility] Name: Kaylie Hargrove Age: 34 yrs Sex: Female : 1985 Arrival Date: 02/05/2020 Time: 18:06 Bed 19 Private MD: ED Physician Santos Stokes HPI: 02/04 19:34 This 34 yrs old Female presents to ER via Ambulatory with complaints of basilia Headache, Breathing Difficulty, Cough, Body Aches. 19:34 The patient complains of pain to the top of head, forehead, left frontal area, left basilia side of the back of head, right frontal area, right side of the back of head, right occipital area and right base of the skull. The patient describes the headache as. 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 - Social history:: Smoking status: Patient denies any tobacco usage or history of. ROS: 19:35 Constitutional: Negative for fever, chills, and weight loss, Eyes: Negative for injury, basilia pain, redness, and discharge, ENT: Negative for injury, pain, and discharge, Neck: Negative for injury, pain, and swelling, Cardiovascular: Negative for chest pain, palpitations, and edema, Abdomen/GI: Negative for abdominal pain, nausea, vomiting, diarrhea, and constipation, Back: Negative for injury and pain, : Negative for injury, bleeding, discharge, and swelling, MS/Extremity: Negative for injury and deformity, Skin: Negative for injury, rash, and discoloration, Neuro: Negative for headache, weakness, numbness, tingling, and seizure, Psych: Negative for depression, anxiety, suicide ideation, homicidal ideation, and hallucinations, Allergy/Immunology: Negative for hives, rash, and allergies, Endocrine: Negative for neck swelling, polydipsia, polyuria, polyphagia, and marked weight changes, Hematologic/Lymphatic: Negative for swollen nodes, abnormal bleeding, and unusual bruising. 19:35 Respiratory: Positive for cough, with no reported sputum. Exam: 19:35 Constitutional: This is a well developed, well nourished patient who is awake, alert, basilia and in no acute distress. Head/Face: Normocephalic, atraumatic. Eyes: Pupils equal round and reactive to light, extra-ocular motions intact. Lids and lashes normal. Conjunctiva and sclera are non-icteric and not injected. Cornea within normal limits. Periorbital areas with no swelling, redness, or edema. ENT: Nares patent. No nasal discharge, no septal abnormalities noted. Tympanic membranes are normal and external auditory canals are clear. Oropharynx with no redness, swelling, or masses, exudates, or evidence of obstruction, uvula midline. Mucous membranes moist. Neck: Trachea midline, no thyromegaly or masses palpated, and no cervical lymphadenopathy. Supple, full range of motion without nuchal rigidity, or vertebral point tenderness. No Meningismus. Chest/axilla: Normal chest wall appearance and motion. Nontender with no deformity. No lesions are appreciated. Cardiovascular: Regular rate and rhythm with a normal S1 and S2. No gallops, murmurs, or rubs. Normal PMI, no JVD. No pulse deficits. Abdomen/GI: Soft, non-tender, with normal bowel sounds. No distension or tympany. No guarding or rebound. No evidence of tenderness throughout. Back: No spinal tenderness. No costovertebral tenderness. Full range of motion. Skin: Warm, dry with normal turgor. Normal color with no rashes, no lesions, and no evidence of cellulitis. MS/ Extremity: Pulses equal, no cyanosis. Neurovascular intact. Full, normal range of motion. Neuro: Awake and alert, GCS 15, oriented to person, place, time, and situation. Cranial nerves II-XII grossly intact. Motor strength 5/5 in all extremities. Sensory grossly intact. Cerebellar exam normal. Normal gait. Psych: Awake, alert, with orientation to person, place and time. Behavior, mood, and affect are within normal limits. 19:35 Respiratory: the patient does not display signs of respiratory distress, Respirations: normal, no acute changes, Breath sounds: rhonchi, that are mild, are scattered. Vital Signs: 19:16 BP 153 / 81; Pulse 70; Resp 18; Temp 98.0; Pulse Ox 100% on R/A; Weight 86.18 kg; ph Height 5 ft. 3 in. (160.02 cm); 19:16 Body Mass Index 33.66 (86.18 kg, 160.02 cm) ph MDM: 19:20 Patient medically screened. [facility] 19:35 Data reviewed: vital signs, nurses notes. [facility] Administered Medications: 19:42 CANCELLED (Duplicate Order): Xopenex 1.25 mg Inhalation once [facility] 19:43 CANCELLED (Duplicate Order): AtroVENT Aerosol 0.5 mg Inhalation once [facility] 19:57 Drug: Zithromax 500 mg Route: PO; 20:23 Follow up: Response: No adverse reaction 19:57 Drug: predniSONE 20 mg Route: PO; 20:23 Follow up: Response: No adverse reaction Disposition: 02/05/20 19:37 Discharged to Home. Impression: Acute upper respiratory infection, unspecified, Cough. - Condition is Stable. - Discharge Instructions: Upper Respiratory Infection, Adult, Cool Mist Vaporizer, Upper Respiratory Infection, Adult, [id number], Cough, Adult, [id number], Cough, Adult. - Prescriptions for Tessalon Perles 100 mg Oral Capsule - take 1 capsule by ORAL route every 8 hours As needed; 15 capsule. Albuterol Sulfate 2.5 mg /3 mL (0.083 %) Inhalation Solution for Nebulization - inhale 1 unit by NEBULIZATION route every 8 hours As needed; 1 box. Zithromax Z- Delvin 250 mg Oral Tablet - take 1 tablet by ORAL route as directed for 5 days Day 1 - take two (2) tablets one time. Day 2, 3, 4 , 5 take one (1) tablet once daily.; 6 tablet. Medrol (Delvin) 4 mg Oral Tablets, Dose Pack - take 1 tablet by ORAL route as directed - follow package instructions; 1 packet. Albuterol Sulfate 90 mcg/actuation - inhale 1-2 puff by INHALATION route every 4-6 hours; 1 Inhaler. - Medication Reconciliation Form, Thank You Letter, Antibiotic Education, Prescription Opioid Use, Work release form form. - Follow up: Private Physician; When: 2 - 3 days; Reason: Recheck today's complaints, Continuance of care, Re-evaluation by your physician. - Problem is new. - Symptoms have improved. Signatures: Santos Stokes MD MD cha Hall, Patricia, RN RN ph Chel Booth Corrections: (The following items were deleted from the chart) 19:42 19:34 Xopenex 1.25 mg Inhalation once ordered. basilia cui 19:43 19:34 AtroVENT Aerosol 0.5 mg Inhalation once ordered. basilia cui 20:24 19:37 02/05/2020 19:37 Discharged to Home. Impression: Acute upper respiratory wh infection, unspecified; Cough. Condition is Stable. Forms are Medication Reconciliation Form, Thank You Letter, Antibiotic Education, Prescription Opioid Use. Follow up: Private Physician; When: 2 - 3 days; Reason: Recheck today's complaints, Continuance of care, Re-evaluation by your physician. Problem is new. Symptoms have improved. basilia
[2020-02-05] MEDS ORDERED: predniSONE 20 MG TAB ONE (19:48)
[2020-02-05] MEDS ORDERED: AZITHROMYCIN 250 MG TAB ONE (19:48)
[2020-02-05 20:29] VITALS: BP 153/81; TEMP 98; O2SAT 100
== END 2020-02-05 20:24 | disposition home or self-care (01) ==
LOC: ER 18:04
DX: J06.9 Acute upper respiratory infection, unspecified (principal); R05 Cough; J45.909 Unspecified asthma, uncomplicated; Z88.1 Allergy status to other antibiotic agents
CPT/HCPCS: 99283; J7512

== ENCOUNTER 2020-03-01 18:59 | Emergency (ER) | payer SELFPAY ==
[2020-03-01 20:14] LABS: Absolute Lymphocytes (CBC) 3.2 K/uL (0.7-4.9); Basophils % 0.7 % (0-1.3); Hematocrit 35.6 % (36.0-45.0); MPV 8.2 fL (7.6-11.3); RBC Red Blood Cell Count 3.77 M/uL (3.86-4.86)
[2020-03-01 20:19] LABS: Urine Bacteria LOADED /HPF (<20); Urine Culture Reflex Order REFLEXED; Urine RBC <5 /HPF (NONE SEEN)
[2020-03-01 20:20] LABS: Calcium Oxalate Crystals- Ur MANY (NONE SEEN)
[2020-03-01 20:36] LABS: BUN Blood Urea Nitrogen 13 mg/dL (7-18); Bicarbonate 24 mmol/L (21-32); Glucose Level 129 mg/dL (74-106); Potassium 3.2 mmol/L (3.5-5.1); Sodium Level 141 mmol/L (136-145)
[2020-03-01 20:47] LABS: HCG, Quantitative < 1 mIU/mL (1-3)
[2020-03-01 20:48] LABS: Urine Blood 2+ (NEG); Urine Glucose NEGATIVE (NEG); Urine Protein TRACE (NEG); Urine Specific Gravity >1.030 (1.005-1.030); Urine pH 5.5 (5.0-7.0)
[2020-03-01] MEDS ORDERED: NA CHLORIDE 0.9% 1,000 ML ONE (20:58)
[2020-03-01] MEDS ORDERED: NITROFURAN MACRO 100 MG CAP PO ONE (20:58)
[2020-03-01] MEDS ORDERED: CEFTRIAXONE/SWI 1gm 1 GM/10 ML SYR ONE (20:58)
[2020-03-01] MEDS ORDERED: POTASSIUM 25 MEQ EFFERV TAB ONE (21:10)
--- NOTE | 2020-03-01 21:14 | EDPHYS ---
Physician Documentation [facility] Name: Kaylie Hargrove Age: 34 yrs Sex: Female : 1985 Arrival Date: 03/01/2020 Time: 19:03 Bed 13 Private MD: ED Physician Asher Smith HPI: 03/01 19:30 This 34 yrs old Female presents to ER via Ambulatory with complaints of Pelvic snw Pain, Vaginal Bleeding. 19:30 The patient presents with vaginal bleeding that is. Onset: The symptoms/episode snw began/occurred suddenly, today. Associated signs and symptoms: Pertinent positives: cramping, vaginal bleeding. Severity of symptoms: At their worst the symptoms were mild. The patient is sexually active, reportedly has a single partner, [place] last pm. The patient has experienced a previous episode, and the symptoms today are exactly the same. The patient has not recently seen a physician. 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 - Social history:: Smoking status: Patient denies any tobacco usage or history of. ROS: 19:29 Constitutional: Negative for fever, chills, and weight loss, Eyes: Negative for injury, snw pain, redness, and discharge, ENT: Negative for injury, pain, and discharge, Neck: Negative for injury, pain, and swelling, Cardiovascular: Negative for chest pain, palpitations, and edema, Respiratory: Negative for shortness of breath, cough, wheezing, and pleuritic chest pain, Abdomen/GI: Negative for abdominal pain, nausea, vomiting, diarrhea, and constipation, Back: Negative for injury and pain, MS/Extremity: Negative for injury and deformity, Skin: Negative for injury, rash, and discoloration, Neuro: Negative for headache, weakness, numbness, tingling, and seizure, Psych: Negative for depression, anxiety, suicide ideation, homicidal ideation, and hallucinations. 19:29 : Positive for vaginal bleeding, "found out I was yesterday". Exam: 19:29 Constitutional: This is a well developed, well nourished patient who is awake, alert, snw and in no acute distress. Head/Face: Normocephalic, atraumatic. Eyes: Pupils equal round and reactive to light, extra-ocular motions intact. Lids and lashes normal. Conjunctiva and sclera are non-icteric and not injected. Cornea within normal limits. Periorbital areas with no swelling, redness, or edema. ENT: Nares patent. No nasal discharge, no septal abnormalities noted. Tympanic membranes are normal and external auditory canals are clear. Oropharynx with no redness, swelling, or masses, exudates, or evidence of obstruction, uvula midline. Mucous membranes moist. Neck: Trachea midline, no thyromegaly or masses palpated, and no cervical lymphadenopathy. Supple, full range of motion without nuchal rigidity, or vertebral point tenderness. No Meningismus. Chest/axilla: Normal chest wall appearance and motion. Nontender with no deformity. No lesions are appreciated. Cardiovascular: Regular rate and rhythm with a normal S1 and S2. No gallops, murmurs, or rubs. Normal PMI, no JVD. No pulse deficits. Respiratory: Lungs have equal breath sounds bilaterally, clear to auscultation and percussion. No rales, rhonchi or wheezes noted. No increased work of breathing, no retractions or nasal flaring. Abdomen/GI: Soft, non-tender, with normal bowel sounds. No distension or tympany. No guarding or rebound. No evidence of tenderness throughout. Back: No spinal tenderness. No costovertebral tenderness. Full range of motion. Skin: Warm, dry with normal turgor. Pale color with no rashes, no lesions, and no evidence of cellulitis. MS/ Extremity: Pulses equal, no cyanosis. Neurovascular intact. Full, normal range of motion. Neuro: Awake and alert, GCS 15, oriented to person, place, time, and situation. Cranial nerves II-XII grossly intact. Motor strength 5/5 in all extremities. Sensory grossly intact. Cerebellar exam normal. Normal gait. Psych: Awake, alert, with orientation to person, place and time. Behavior, mood, and affect are within normal limits. Vital Signs: 19:09 BP 142 / 81; Pulse 68; Resp 16 S; Temp 97.2(O); Pulse Ox 100% on R/A; Weight 88.45 kg ca1 (R); Height 5 ft. 3 in. (160.02 cm) (R); Pain 0/10; 20:30 BP 138 / 72; Pulse 68; Resp 16; Pulse Ox 100% on R/A; jb4 21:42 BP 162 / 89; Pulse 55; Resp 16; Pulse Ox 98% on R/A; jb4 19:09 Body Mass Index 34.54 (88.45 kg, 160.02 cm) ca1 MDM: 19:16 Patient medically screened. snw 21:14 Data reviewed: vital signs, nurses notes. Data interpreted: Pulse oximetry: on room air snw is 100 %. Interpretation: normal. Counseling: I had a detailed discussion with the patient and/or guardian regarding: the historical points, exam findings, and any diagnostic results supporting the discharge/admit diagnosis, the presence of at least one elevated blood pressure reading (>120/80) during this emergency department visit, lab results, the need for outpatient follow up, to return to the emergency department if symptoms worsen or persist or if there are any questions or concerns that arise at home. Special discussion: Based on the patient's Hx, exam, and Dx evaluation, there is no indication for emergent surgery or inpatient Tx. It is understood by the patient/guardian that if the Sx's persist or worsen they need to return immediately for re-evaluation. Based on the history and exam findings, there is no indication for further emergent testing or inpatient evaluation. I discussed with the patient/guardian the need to see the OB Gyne specialist for further evaluation of the symptoms. 03/01 19:15 Order name: Urine Culture snw 03/01 19:15 Order name: Urine Microscopic Only; Complete Time: 20:38 snw 03/01 19:33 Order name: Quantitative Hcg; Complete Time: 20:48 snw 03/01 19:33 Order name: Abo/rh Typing; Complete Time: 20:48 snw 03/01 19:33 Order name: Basic Metabolic Panel; Complete Time: 20:48 snw 03/01 19:33 Order name: CBC with Diff; Complete Time: 20:38 snw 03/01 19:15 Order name: Urine Test (obtain specimen); Complete Time: 19:30 snw 03/01 19:15 Order name: Urine Dipstick-Ancillary (obtain specimen); Complete Time: 19:30 w 03/01 19:33 Order name: Urine Dipstick--Ancillary (enter results); Complete Time: 20:52 03/01 19:33 Order name: Urine --Ancillary (enter results); Complete Time: 20:52 03/01 19:33 Order name: IV Saline Lock; Complete Time: 19:54 snw 03/01 19:33 Order name: Labs collected and sent; Complete Time: 19:54 snw 03/01 19:33 Order name: NPO; Complete Time: 19:33 snw Administered Medications: 20:58 Drug: Rocephin 1 grams Route: IV; Rate: calculated rate; Site: right antecubital; jb4 21:00 Follow up: Response: No adverse reaction; IV Status: Completed infusion; IV Intake: [id number] 21:00 Drug: NS 0.9% 1000 ml Route: IV; Rate: 1 bolus; Site: right antecubital; jb4 22:10 Follow up: Response: No adverse reaction; IV Status: Completed infusion; IV Intake: jb4 1000ml 21:00 Drug: Macrobid 100 mg Route: PO; jb4 22:11 Follow up: Response: No adverse reaction jb4 21:08 Drug: Potassium Effervescent Tablet 50 mEq Route: PO; jb4 22:00 Follow up: Response: No adverse reaction [facility] Disposition: 22:13 Co-signature as Attending Physician, Asher Smith MD. rn Disposition: 03/01/20 21:13 Discharged to Home. Impression: Urinary tract infection, site not specified. - Condition is Stable. - Discharge Instructions: Urinary Tract Infection, Adult, Rehydration, Adult. - Prescriptions for Macrobid 100 mg Oral Capsule - take 1 capsule by ORAL route every 12 hours for 10 days; 20 capsule. promethazine 25 mg Oral Tablet - take 1 tablet by ORAL route every 6 hours As needed; 20 tablet. - Work release form, Medication Reconciliation Form, Thank You Letter, Antibiotic Education, Prescription Opioid Use form. - Follow up: Emergency Department; When: As needed; Reason: Worsening of condition. Follow up: Private Physician; When: 2 - 3 days; Reason: Recheck today's complaints, Continuance of care, Re-evaluation by your physician. Signatures: Dispatcher [employer] EDMS Caroline Molina, IRENE-C PUNCHBOARD ASSEMBLER-Csnw Asher Smith MD MD rn Bryson, James, RN RN jb4 Mojgan Lu RN RN ca1 Corrections: (The following items were deleted from the chart) 22:12 21:13 03/01/2020 21:13 Discharged to Home. Impression: Urinary tract infection, site jb4 not specified. Condition is Stable. Forms are Medication Reconciliation Form, Thank You Letter, Antibiotic Education, Prescription Opioid Use. Follow up: Emergency Department; When: As needed; Reason: Worsening of condition. Follow up: Private Physician; When: 2 - 3 days; Reason: Recheck today's complaints, Continuance of care, Re-evaluation by your physician. snw
--- NOTE | 2020-03-01 21:14 | ER ---
Nurse's Notes [facility] Name: Kaylie Hargrove Age: 34 yrs Sex: Female : 1985 Arrival Date: 03/01/2020 Time: 19:03 Bed 13 Private MD: Diagnosis: Urinary tract infection, site not specified Presentation: 03/01 19:09 Chief complaint: Patient states: Yesterday, just found out that I was . Today, ca1 sharp-crampy pain on the L side of the abdomen that comes and goes. Reports vaginal bleeding, light flow, bright red that started today. Coronavirus screen: Proceed with normal triage. Patient denies a cough. Patient denies shortness of breath or difficulty breathing. Patient denies measured and/or subjective temperature greater than 100.4F prior to today's visit. Patient denies travel on a cruise ship or to a country the [facility] currently lists as an affected area. Patient denies contact with known and/or suspected case of COVID-19. Ebola Screen: Patient negative for fever greater than or equal to 101.5 degrees Fahrenheit, and additional compatible Ebola Virus Disease symptoms Patient denies exposure to infectious person. Patient denies travel to an Ebola-affected area in the 21 days before illness onset. No symptoms or risks identified at this time. Initial Sepsis Screen: Does the patient meet any 2 criteria? No. Patient's initial sepsis screen is negative. Does the patient have a suspected source of infection? No. Patient's initial sepsis screen is negative. Risk Assessment: Do you want to hurt yourself or someone else? Patient reports no desire to harm self or others. Onset of symptoms was March 01, 2020. 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 - Social history:: Smoking status: Patient denies any tobacco usage or history of. Screenin:22 Abuse screen: Denies threats or abuse. Nutritional screening: No deficits noted. jb4 Tuberculosis screening: No symptoms or risk factors identified. Fall Risk None identified. Assessment: 19:22 General: Appears in no apparent distress. comfortable, Behavior is calm, cooperative, jb4 appropriate for age. Pain: Complains of pain in left upper quadrant Pain does not radiate. Pain currently is 4 out of 10 on a pain scale. Quality of pain is described as stabbing, Pain began 10am Is intermittent. Neuro: Level of Consciousness is awake, alert, obeys commands, Oriented to person, place, time, situation. Cardiovascular: Patient's skin is warm and dry. Respiratory: Airway is patent Respiratory effort is even, unlabored, Respiratory pattern is regular, symmetrical. GI: No signs and/or symptoms were reported involving the gastrointestinal system. : Urine is clear, Reports vaginal bleeding that is bright red, light flow. EENT: No signs and/or symptoms were reported regarding the EENT system. Derm: Skin is intact, Skin is pink, warm \T\ dry. Musculoskeletal: Circulation, motion, and sensation intact. Range of motion: intact in all extremities. 20:30 Reassessment: Patient appears in no apparent distress at this time. Patient and/or jb4 family updated on plan of care and expected duration. Pain level reassessed. Patient is alert, oriented x 3, equal unlabored respirations, skin warm/dry/pink. 21:13 Reassessment: D/c pending completion of IV fluids. jb4 21:30 Reassessment: Patient appears in no apparent distress at this time. Patient and/or jb4 family updated on plan of care and expected duration. Pain level reassessed. Patient is alert, oriented x 3, equal unlabored respirations, skin warm/dry/pink. 22:05 Reassessment: Patient appears in no apparent distress at this time. Patient and/or jb4 family updated on plan of care and expected duration. Pain level reassessed. Patient is alert, oriented x 3, equal unlabored respirations, skin warm/dry/pink. PT verbalized understanding of d/c and follow up instructions. Denies questions or concerns. Ambulated out of ED with steady gait. Vital Signs: 19:09 BP 142 / 81; Pulse 68; Resp 16 S; Temp 97.2(O); Pulse Ox 100% on R/A; Weight 88.45 kg ca1 (R); Height 5 ft. 3 in. (160.02 cm) (R); Pain 0/10; 20:30 BP 138 / 72; Pulse 68; Resp 16; Pulse Ox 100% on R/A; jb4 21:42 BP 162 / 89; Pulse 55; Resp 16; Pulse Ox 98% on R/A; jb4 19:09 Body Mass Index 34.54 (88.45 kg, 160.02 cm) ca1 ED Course: 19:03 Patient arrived in ED. am2 19:08 Robert Sebastian, RN is Primary Nurse. jb4 19:09 Arm band placed on right wrist. ca1 19:11 Caroline Molina FNP-C is PHCP. snw 19:11 Asher Smith MD is Attending Physician. snw 19:13 Triage completed. ca1 19:22 Patient has correct armband on for positive identification. Bed in low position. Call jb4 light in reach. Side rails up X 1. Pulse ox on. NIBP on. 19:43 Urine Culture Sent. jb4 19:43 Urine Microscopic Only Sent. jb4 19:45 Inserted saline lock: 22 gauge in right antecubital area, using aseptic technique. ds4 Blood collected. 22:08 No provider procedures requiring assistance completed. IV discontinued, intact, jb4 bleeding controlled, No redness/swelling at site. Pressure dressing applied. Administered Medications: 20:58 Drug: Rocephin 1 grams Route: IV; Rate: calculated rate; Site: right antecubital; jb4 21:00 Follow up: Response: No adverse reaction; IV Status: Completed infusion; IV Intake: [id number] 21:00 Drug: NS 0.9% 1000 ml Route: IV; Rate: 1 bolus; Site: right antecubital; jb4 22:10 Follow up: Response: No adverse reaction; IV Status: Completed infusion; IV Intake: jb4 1000ml 21:00 Drug: Macrobid 100 mg Route: PO; jb4 22:11 Follow up: Response: No adverse reaction jb4 21:08 Drug: Potassium Effervescent Tablet 50 mEq Route: PO; jb4 22:00 Follow up: Response: No adverse reaction jb4 Intake: 21:00 IV: 10ml; Total: 10ml. jb4 22:10 IV: 1000ml; Total: 1010ml. jb4 Outcome: 21:13 Discharge ordered by MD. lopez 22:08 Discharged to home ambulatory. jb4 22:08 Condition: stable 22:08 Discharge instructions given to patient, Instructed on discharge instructions, follow up and referral plans. medication usage, Demonstrated understanding of instructions, follow-up care, medications, Prescriptions given X 1. 22:12 Patient left the ED. jb4 Signatures: Caroline Molina, CASH SPECIALIST-C CASH SPECIALIST-Csnw Aaron Howell ds4 Robert Sebastian RN RN jb4 Crystal Beckwith am2 Mojgan Lu RN RN ca1 Corrections: (The following items were deleted from the chart) 19:26 19:22 : Urine is clear, Reports vaginal bleeding that is jb4 jb4
[2020-03-01 22:35] VITALS: TEMP 97.2
[2020-03-01 22:38] VITALS: BP 162/89; O2SAT 98
== END 2020-03-01 22:12 | disposition home or self-care (01) ==
LOC: ER 18:59
DX: N39.0 Urinary tract infection, site not specified (principal); J45.909 Unspecified asthma, uncomplicated; Z88.1 Allergy status to other antibiotic agents
CPT/HCPCS: 36415; 80048; 81003; 81015; 81025; 84702; 85025; 86900; 86901; 87086; 87088; 96361; 96374; 99284; J0696; J7030

== ENCOUNTER 2020-10-05 10:24 | Emergency (ER) | payer SELFPAY ==
--- NOTE | 2020-10-05 12:30 | EDPHYS ---
Physician Documentation [facility] Name: Kaylie Hargrove Age: 34 yrs Sex: Female : 1985 Arrival Date: 10/05/2020 Time: 10:25 Bed 14 Private MD: ED Physician Andrea Abraham HPI: 10/05 12:21 This 34 yrs old Female presents to ER via Ambulatory with complaints of Sore kb Throat, Headache, Fever, Chest Tightness. 12:21 The patient has not experienced similar symptoms in the past. The patient has not kb recently seen a physician. 12:25 The patient or guardian reports cough, that is intermittent, described as mild, kb difficulty breathing, flu symptoms, low-grade fever, myalgias. Onset: The symptoms/episode began/occurred 5 day(s) ago. Severity of symptoms: At their worst the symptoms were moderate, in the emergency department the symptoms are unchanged. Modifying factors: The symptoms are alleviated by nothing, the symptoms are aggravated by nothing. Associated signs and symptoms: Pertinent positives: fever, sore throat, Pertinent negatives: chest pain, diarrhea, ear ache, nausea, rhinorrhea, vomiting. 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 - Social history:: Smoking status: Patient/guardian denies using tobacco, the patient reports quitting approximately 2 years ago. ROS: 12:20 Cardiovascular: Negative for chest pain, palpitations, and edema, Back: Negative for kb injury and pain, MS/Extremity: Negative for injury and deformity, Skin: Negative for injury, rash, and discoloration. 12:20 Constitutional: Positive for fever, malaise. 12:20 ENT: Positive for sinus congestion, sore throat. 12:20 Respiratory: Positive for shortness of breath. 12:20 Neuro: Positive for headache. 12:21 Abdomen/GI: Positive for diarrhea. kb Exam: 12:20 Constitutional: This is a well developed, well nourished patient who is awake, alert, kb and in no acute distress. Head/Face: Normocephalic, atraumatic. ENT: Nares patent. No nasal discharge, no septal abnormalities noted. Tympanic membranes are normal and external auditory canals are clear. Oropharynx with no redness, swelling, or masses, exudates, or evidence of obstruction, uvula midline. Mucous membranes moist. Chest/axilla: Normal chest wall appearance and motion. Nontender with no deformity. No lesions are appreciated. Cardiovascular: Regular rate and rhythm with a normal S1 and S2. No gallops, murmurs, or rubs. Normal PMI, no JVD. No pulse deficits. Respiratory: Lungs have equal breath sounds bilaterally, clear to auscultation and percussion. No rales, rhonchi or wheezes noted. No increased work of breathing, no retractions or nasal flaring. Abdomen/GI: Soft, non-tender, with normal bowel sounds. No distension or tympany. No guarding or rebound. No evidence of tenderness throughout. Skin: Warm, dry with normal turgor. Normal color with no rashes, no lesions, and no evidence of cellulitis. MS/ Extremity: Pulses equal, no cyanosis. Neurovascular intact. Full, normal range of motion. Neuro: Awake and alert, GCS 15, oriented to person, place, time, and situation. Cranial nerves II-XII grossly intact. Motor strength 5/5 in all extremities. Sensory grossly intact. Cerebellar exam normal. Normal gait. Vital Signs: 11:05 BP 155 / 84; Pulse 73; Resp 16; Temp 98.7; Pulse Ox 100% on R/A; Weight 83.91 kg; iw Height 5 ft. 3 in. (160.02 cm); 13:20 Pulse 72; Resp 17 S; Pulse Ox 100% on R/A; jd3 11:05 Body Mass Index 32.77 (83.91 kg, 160.02 cm) iw MDM: 11:24 Patient medically screened. kb 12:21 Data reviewed: vital signs, nurses notes. Data interpreted: Pulse oximetry: on room air kb is 100 %. Interpretation: normal. Counseling: I had a detailed discussion with the patient and/or guardian regarding: the historical points, exam findings, and any diagnostic results supporting the discharge/admit diagnosis, lab results, the need for outpatient follow up, a family practitioner, to return to the emergency department if symptoms worsen or persist or if there are any questions or concerns that arise at home. 10/05 11:09 Order name: Flu; Complete Time: 12:06 10/05 11:09 Order name: Strep; Complete Time: 12:06 10/05 11:57 Order name: Throat Culture; Complete Time: 10:32 EDCA 10/05 12:19 Order name: COVID-19; Complete Time: 10:32 kb Administered Medications: No medications were administered Disposition: 18:09 Co-signature as Attending Physician, Andrea Abraham MD I agree with the assessment and kdr plan of care. Disposition: 10/05/20 12:29 Discharged to Home. Impression: Acute upper respiratory infection, unspecified. - Condition is Stable. - Discharge Instructions: Upper Respiratory Infection, Adult, [id number], COVID-19. - Medication Reconciliation Form, Thank You Letter, Antibiotic Education, Prescription Opioid Use, Work release form form. - Follow up: Emergency Department; When: As needed; Reason: Worsening of condition. Follow up: Private Physician; When: 2 - 3 days; Reason: Recheck today's complaints, Continuance of care, Re-evaluation by your physician. Addendum: 10/07/2020 10:34 Addendum: Notified patient of positive COVID-19 test result, 10/07/20 \T\ 1035. . rn Signatures: Dispatcher [employer] [facility] Dasia Logan, PUBLIC HEALTH PROFESSOR-C PUBLIC HEALTH PROFESSOR-Ckb Andrea Abraham MD MD kdr Williams, Irene, RN RN Asher Smith MD MD rn Davies, Jonathon, RN RN jd3 Corrections: (The following items were deleted from the chart) 10/05 13:21 12:29 10/05/2020 12:29 Discharged to Home. Impression: Acute upper respiratory jd3 infection, unspecified. Condition is Stable. Forms are Medication Reconciliation Form, Thank You Letter, Antibiotic Education, Prescription Opioid Use. Follow up: Emergency Department; When: As needed; Reason: Worsening of condition. Follow up: Private Physician; When: 2 - 3 days; Reason: Recheck today's complaints, Continuance of care, Re-evaluation by your physician. kb
--- NOTE | 2020-10-05 12:30 | ER ---
Nurse's Notes [facility] Name: Kaylie Hargrove Age: 34 yrs Sex: Female : 1985 Arrival Date: 10/05/2020 Time: 10:25 Bed 14 Private MD: Diagnosis: Acute upper respiratory infection, unspecified Presentation: 10/05 11:05 Chief complaint: Patient states: started with a fever and headache X 2 days ago, woke iw up this morning with chest tightness, sore throat and diarrhea, intermittent cough. Coronavirus screen: cough unrelated to allergies, diarrhea, sore throat. Ebola Screen: Patient negative for fever greater than or equal to 101.5 degrees Fahrenheit, and additional compatible Ebola Virus Disease symptoms Patient denies exposure to infectious person. Patient denies travel to an Ebola-affected area in the 21 days before illness onset. No symptoms or risks identified at this time. Initial Sepsis Screen: Does the patient meet any 2 criteria? No. Patient's initial sepsis screen is negative. Does the patient have a suspected source of infection? No. Patient's initial sepsis screen is negative. Risk Assessment: Do you want to hurt yourself or someone else? Patient reports no desire to harm self or others. Onset of symptoms was October 03, 2020. 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 - Social history:: Smoking status: Patient/guardian denies using tobacco, the patient reports quitting approximately 2 years ago. Screenin:46 Abuse screen: Denies threats or abuse. Denies injuries from another. Nutritional iw screening: No deficits noted. Tuberculosis screening: No symptoms or risk factors identified. Fall Risk None identified. Assessment: 11:45 General: Appears in no apparent distress. Behavior is calm, cooperative. Pain: iw Complains of pain in head. Neuro: Level of Consciousness is awake, alert, obeys commands, Oriented to person, place, time, situation, Moves all extremities. Full function. Cardiovascular: Patient's skin is warm and dry. Respiratory: Airway is patent Respiratory effort is even, unlabored, Breath sounds are clear bilaterally. Breath sounds are coarse. EENT: Throat is pink. Musculoskeletal: No signs and/or symptoms reported regarding the musculoskeletal system. Range of motion: intact in all extremities. 13:21 Reassessment: Patient appears in no apparent distress at this time. No changes from jd3 previously documented assessment. Patient and/or family updated on plan of care and expected duration. Pain level reassessed. Patient is alert, oriented x 3, equal unlabored respirations, skin warm/dry/pink. Vital Signs: 11:05 BP 155 / 84; Pulse 73; Resp 16; Temp 98.7; Pulse Ox 100% on R/A; Weight 83.91 kg; iw Height 5 ft. 3 in. (160.02 cm); 13:20 Pulse 72; Resp 17 S; Pulse Ox 100% on R/A; jd3 11:05 Body Mass Index 32.77 (83.91 kg, 160.02 cm) iw ED Course: 10:25 Patient arrived in ED. as 10:30 Dasia Logan FNP-C [facility]. kb 10:30 Andrea Abraham MD is Attending Physician. kb 11:06 Triage completed. iw 11:07 Arm band placed on. iw 11:23 Virgen Pabon RN is Primary Nurse. iw 11:46 No provider procedures requiring assistance completed. Patient did not have IV access iw during this emergency room visit. 12:08 Primary Nurse role handed off by Virgen Pabon RN j 12:08 Jae Garcia RN is Primary Nurse. jd3 13:20 Patient has correct armband on for positive identification. Bed in low position. Call jd3 light in reach. Side rails up X 1. Pulse ox on. NIBP on. Administered Medications: No medications were administered Outcome: 12:29 Discharge ordered by . kb 13:20 Discharged to home ambulatory. jd3 13:20 Condition: stable 13:20 Discharge instructions given to patient, Instructed on discharge instructions, follow up and referral plans. Demonstrated understanding of instructions, follow-up care. 13:21 Patient left the ED. jd3 Signatures: Dasia Logan FNP-C FNP-Melanie Rogers as Virgen Pabon RN RN iw Jae Garcia RN RN jd3
[2020-10-05 14:47] VITALS: BP 155/84; TEMP 98.7; O2SAT 100
== END 2020-10-05 13:21 | disposition home or self-care (01) ==
LOC: ER 10:24
DX: U07.1 COVID-19 (principal); J06.9 Acute upper respiratory infection, unspecified; Z88.1 Allergy status to other antibiotic agents
CPT/HCPCS: 87070; 87081; 87804; 99283; U0002

== ENCOUNTER 2020-10-31 16:31 | Emergency (ER) | payer SELFPAY ==
[2020-10-31] MEDS ORDERED: dexAMETHasone 10 MG/ML VIAL ONE (19:21)
[2020-10-31] MEDS ORDERED: HYDROCODONE/CHLORPHEN 5 ML/OSYR ONE (19:21)
[2020-10-31] MEDS ORDERED: ALBUTEROL 2.5 MG/3 ML NEB SOL ONE (19:22)
[2020-10-31] MEDS ORDERED: IPRATROPIUM BROM 0.5MG/2.5ML ONE (19:22)
--- NOTE | 2020-10-31 19:41 | RAD REPORT ---
EXAM DESCRIPTION: RAD - Chest Single View - 10/31/2020 7:27 pm CLINICAL HISTORY: Chest pain;Cough Chest pain. COMPARISON: Chest Pa And Lat (2 Views) dated 01/18/2020; Chest Single View dated 07/21/2018 FINDINGS: Portable technique limits examination quality. The lungs are grossly clear. The heart is normal in size. No displaced fractures. IMPRESSION: No acute intrathoracic process suspected.
--- NOTE | 2020-10-31 20:06 | ER ---
Nurse's Notes [facility] Name: Kaylie Hargrove Age: 34 yrs Sex: Female : 1985 Arrival Date: 10/31/2020 Time: 16:32 Bed 18 Private MD: Diagnosis: Acute upper respiratory infection, unspecified;Asthma Presentation: 10/31 16:51 Chief complaint: Patient states: had covid 3 weeks ago, retested and had a neg. swab 1 em week ago, reports chest pressure/tightness that radiates into back, also feels like there is something in the throat. Coronavirus screen: The client reports previous COVID testing was negative. Date of collection: October 25, 2020. Ebola Screen: Patient negative for fever greater than or equal to 101.5 degrees Fahrenheit, and additional compatible Ebola Virus Disease symptoms Patient denies exposure to infectious person. Patient denies travel to an Ebola-affected area in the 21 days before illness onset. No symptoms or risks identified at this time. 16:51 Method Of Arrival: Ambulatory em 16:55 Initial Sepsis Screen: Does the patient meet any 2 criteria? No. Patient's initial em sepsis screen is negative. Does the patient have a suspected source of infection? No. Patient's initial sepsis screen is negative. Risk Assessment: Do you want to hurt yourself or someone else? Patient reports no desire to harm self or others. Onset of symptoms was October 25, 2020. 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 - Social history:: Smoking status: Patient denies any tobacco usage or history of. Screenin:10 Abuse screen: Denies threats or abuse. Denies injuries from another. Nutritional ca1 screening: No deficits noted. Tuberculosis screening: No symptoms or risk factors identified. Fall Risk IV access (20 points). Assessment: 18:10 General: Appears in no apparent distress. comfortable, Behavior is calm, cooperative, ca1 appropriate for age. Pain: Complains of pain in mid-sternal area Pain radiates to back Pain currently is 6 out of 10 on a pain scale. Pain began 2-3 days ago. Is intermittent. Neuro: Level of Consciousness is awake, alert, obeys commands, Oriented to person, place, time, situation. Cardiovascular: Heart tones S1 S2 present Capillary refill < 3 seconds Patient's skin is warm and dry. Rhythm is regular. Respiratory: Airway is patent Respiratory effort is even, unlabored, Respiratory pattern is regular, symmetrical, Breath sounds are clear bilaterally. GI: Abdomen is round non-distended, Bowel sounds present X 4 quads. Abd is soft and non tender X 4 quads. : No signs and/or symptoms were reported regarding the genitourinary system. EENT: No signs and/or symptoms were reported regarding the EENT system. Derm: Skin is intact, is healthy with good turgor, Skin is pink, warm \T\ dry. Musculoskeletal: Circulation, motion, and sensation intact. Capillary refill < 3 seconds. 19:18 Reassessment: Patient appears in no apparent distress at this time. Patient and/or mg2 family updated on plan of care and expected duration. Pain level reassessed. Patient is alert, oriented x 3, equal unlabored respirations, skin warm/dry/pink. 20:05 Reassessment: Patient appears in no apparent distress at this time. Patient denies pain mg2 at this time. Patient states feeling better. Patient states symptoms have improved. Vital Signs: 16:51 BP 158 / 97; Pulse 77; Resp 18; Temp 98.2; Pulse Ox 100% on R/A; Weight 86.18 kg; em Height 5 ft. 3 in. (160.02 cm); Pain 7/10; 18:10 BP 153 / 76; Pulse 72; Resp 16 S; Pulse Ox 100% on R/A; ca1 19:20 BP 145 / 80; Pulse 80; Resp 18; Temp 98; Pulse Ox 100% on R/A; mg2 20:02 BP 130 / 78; Pulse 81; Resp 18; Temp 98; Pulse Ox 100% on R/A; mg2 16:51 Body Mass Index 33.66 (86.18 kg, 160.02 cm) em ED Course: 16:32 Patient arrived in ED. as 16:54 Arm band placed on. em 16:55 Triage completed. em 18:02 Mojgan Lu, PEGGY is Primary Nurse. ca1 18:10 Patient has correct armband on for positive identification. Placed in gown. Bed in low ca1 position. Call light in reach. Side rails up X2. drafting engineer on. Pulse ox on. NIBP on. Warm blanket given. 18:10 No provider procedures requiring assistance completed. Patient maintains SpO2 ca1 saturation greater than 95% on room air. 18:35 Nabeel Devine NP is PHCP. pm1 18:35 Branden Quan MD is Attending Physician. pm1 19:27 Chest Single View XRAY In Process Unspecified. EDMS 20:14 Patient did not have IV access during this emergency room visit. ca1 Administered Medications: 19:18 Drug: Albuterol - atroVENT (3:1) (2.5 mg - 0.5 mg) 3 ml Route: Nebulizer; mg2 20:00 Follow up: Response: No adverse reaction; Marked relief of symptoms ca1 19:18 Drug: Decadron 10 mg Route: IM; Site: right ventrogluteal; mg2 20:00 Follow up: Response: No adverse reaction ca1 19:18 Drug: Tussionex Pennkinetic ER 5 ml Route: PO; mg2 20:00 Follow up: Response: No adverse reaction; Marked relief of symptoms ca1 Outcome: 20:06 Discharge ordered by MD. pm1 20:15 Discharged to home ambulatory. ca1 20:15 Condition: stable 20:15 Discharge instructions given to patient, Instructed on discharge instructions, follow up and referral plans. medication usage, Demonstrated understanding of instructions, follow-up care, medications, Prescriptions given X 3. 20:16 Patient left the ED. dm5 Signatures: Dispatcher [employer] [facility] Naya Oliver RN RN dm5 Devonte Krause, RN PEGGY em Melanie Sanchez as Nabeel Devine NP ACIDITY TESTER pm1 Samy Og RN RN mg2 Mojgan Lu RN RN ca1 Corrections: (The following items were deleted from the chart) 21:23 21:22 IV discontinued, intact, bleeding controlled, No redness/swelling at site. ca1 Pressure dressing applied, ca1 21:23 20:15 Discharge instructions given to patient, Instructed on discharge instructions, ca1 follow up and referral plans. medication usage, Demonstrated understanding of instructions, follow-up care, medications, Prescriptions given X ca1
--- NOTE | 2020-10-31 20:06 | EDPHYS ---
Physician Documentation [facility] Name: Kaylie Hargrove Age: 34 yrs Sex: Female : 1985 Arrival Date: 10/31/2020 Time: 16:32 Bed 18 Private MD: ED Physician Branden Quan HPI: 10/31 18:52 This 34 yrs old Female presents to ER via Ambulatory with complaints of Chest pm1 Pain, Back Pain. 18:52 The patient or guardian reports cough, with no sputum, feels like she needs to pm1 expectorate . Onset: The symptoms/episode began/occurred 3 week(s) ago. Severity of symptoms: in the emergency department the symptoms are unchanged. Modifying factors: The symptoms are alleviated by nothing. Associated signs and symptoms: Pertinent positives: shortness of breath, wheezing, Pertinent negatives: fever, sore throat. Patient presents to the ER with complaints of cough, chest and back pain with coughing. Nonproductive cough but she feels like she needs to spit out phlegm. Patient had positive covid test 3 weeks ago. She retested about 1 week ago and it was negative. . 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 - Social history:: Smoking status: Patient denies any tobacco usage or history of. ROS: 18:52 Constitutional: Negative for fever, chills, and weight loss, ENT: Negative for injury, pm1 pain, and discharge, Neck: Negative for injury, pain, and swelling. 18:52 Abdomen/GI: Negative for abdominal pain, nausea, vomiting, diarrhea, and constipation, Back: Negative for injury and pain, MS/Extremity: Negative for injury and deformity, Skin: Negative for injury, rash, and discoloration, Neuro: Negative for headache, weakness, numbness, tingling, and seizure. 18:52 Cardiovascular: Positive for chest pain, with cough, Negative for edema, palpitations. 18:52 Respiratory: Positive for cough, with no reported sputum, shortness of breath, wheezing. Exam: 18:52 Constitutional: This is a well developed, well nourished patient who is awake, alert, pm1 and in no acute distress. Head/Face: Normocephalic, atraumatic. Neck: Trachea midline, no thyromegaly or masses palpated, and no cervical lymphadenopathy. Supple, full range of motion without nuchal rigidity, or vertebral point tenderness. No Meningismus. Chest/axilla: Normal chest wall appearance and motion. Nontender with no deformity. No lesions are appreciated. 18:52 Back: No spinal tenderness. No costovertebral tenderness. Full range of motion. Skin: Warm, dry with normal turgor. Normal color with no rashes, no lesions, and no evidence of cellulitis. MS/ Extremity: Pulses equal, no cyanosis. Neurovascular intact. Full, normal range of motion. 18:52 Cardiovascular: Exam negative for acute changes, Rate: normal, Rhythm: regular, Pulses: no pulse deficits are appreciated, Edema: is not appreciated. 18:52 Respiratory: the patient does not display signs of respiratory distress, Respirations: normal, Breath sounds: wheezing: that is mild, is heard diffusely. 18:52 Abdomen/GI: Exam negative for acute changes, Inspection: abdomen appears normal, Palpation: abdomen is soft and non-tender, in all quadrants. 18:52 Neuro: Exam negative for acute changes, Orientation: is normal, Mentation: is normal, Motor: is normal, moves all fours. Vital Signs: 16:51 BP 158 / 97; Pulse 77; Resp 18; Temp 98.2; Pulse Ox 100% on R/A; Weight 86.18 kg; em Height 5 ft. 3 in. (160.02 cm); Pain 7/10; 18:10 BP 153 / 76; Pulse 72; Resp 16 S; Pulse Ox 100% on R/A; ca1 19:20 BP 145 / 80; Pulse 80; Resp 18; Temp 98; Pulse Ox 100% on R/A; mg2 20:02 BP 130 / 78; Pulse 81; Resp 18; Temp 98; Pulse Ox 100% on R/A; mg2 16:51 Body Mass Index 33.66 (86.18 kg, 160.02 cm) em MDM: 18:35 Patient medically screened. pm1 20:05 Data reviewed: vital signs. Data interpreted: Pulse oximetry: on room air is 100 %. pm1 Interpretation: normal. Counseling: I had a detailed discussion with the patient and/or guardian regarding: the historical points, exam findings, and any diagnostic results supporting the discharge/admit diagnosis, radiology results, the need for outpatient follow up, to return to the emergency department if symptoms worsen or persist or if there are any questions or concerns that arise at home. 10/31 18:51 Order name: Chest Single View XRAY; Complete Time: 19:44 pm1 10/31 18:46 Order name: EKG; Complete Time: 18:47 ca1 10/31 18:46 Order name: EKG - Nurse/Tech; Complete Time: 18:46 ca1 Administered Medications: 19:18 Drug: Albuterol - atroVENT (3:1) (2.5 mg - 0.5 mg) 3 ml Route: Nebulizer; mg2 20:00 Follow up: Response: No adverse reaction; Marked relief of symptoms ca1 19:18 Drug: Decadron 10 mg Route: IM; Site: right ventrogluteal; mg2 20:00 Follow up: Response: No adverse reaction ca1 19:18 Drug: Tussionex Pennkinetic ER 5 ml Route: PO; mg2 20:00 Follow up: Response: No adverse reaction; Marked relief of symptoms ca1 Disposition: 10/31/20 20:06 Discharged to Home. Impression: Acute upper respiratory infection, unspecified, Asthma. - Condition is Stable. - Discharge Instructions: Asthma, Adult, Upper Respiratory Infection, Adult. - Prescriptions for Medrol (Delvin) 4 mg Oral Tablets, Dose Pack - take 1 tablet by ORAL route as directed - follow package instructions; 1 packet. Albuterol Sulfate 90 mcg/actuation - inhale 1-2 puff by INHALATION route every 4-6 hours; 1 Inhaler. Guaifenesin AC 10- 100 mg/5 mL Oral Liquid - take 10 milliliter by ORAL route every 4 hours As needed; 240 milliliter. - Medication Reconciliation Form, Thank You Letter, Antibiotic Education, Prescription Opioid Use, Work release form form. - Follow up: Emergency Department; When: As needed; Reason: Worsening of condition. Follow up: Private Physician; When: 2 - 3 days; Reason: Recheck today's complaints, Continuance of care, Re-evaluation by your physician. - Problem is new. - Symptoms have improved. Addendum: 11/19/2020 13:10 Co-signature as Attending Physician, Branden Quan MD Available for consultation at p s1 all times. Did not see patient unless otherwise noted. Signature is for administrative purposes and not an endorsement of care. . Signatures: Dispatcher [employer] Naya Carranza, RN RN dm5 Devonte Krause RN RN em Nabeel Devine, PSYCHIATRIC CNS PSYCHIATRIC CNS pm1 Branden Quan MD MD ps1 Samy Og RN RN mg2 Mojgan Lu RN RN ca1 Corrections: (The following items were deleted from the chart) 10/31 20:09 20:06 10/31/2020 20:06 Discharged to Home. Impression: Acute upper respiratory pm1 infection, unspecified. Condition is Stable. Forms are Medication Reconciliation Form, Thank You Letter, Antibiotic Education, Prescription Opioid Use. Follow up: Emergency Department; When: As needed; Reason: Worsening of condition. Follow up: Private Physician; When: 2 - 3 days; Reason: Recheck today's complaints, Continuance of care, Re-evaluation by your physician. Problem is new. Symptoms have improved. pm1 20:16 20:09 10/31/2020 20:06 Discharged to Home. Impression: Acute upper respiratory dm5 infection, unspecified; Asthma. Condition is Stable. Discharge Instructions: Upper Respiratory Infection, Adult, Asthma, Adult. Prescriptions for Medrol (Delvin) 4 mg Oral Tablets, Dose Pack - take 1 tablet by ORAL route as directed - follow package instructions; 1 packet, Albuterol Sulfate 90 mcg/actuation - inhale 1-2 puff by INHALATION route every 4-6 hours; 1 Inhaler, Guaifenesin AC 10-100 mg/5 mL Oral Liquid - take 10 milliliter by ORAL route every 4 hours As needed; 240 milliliter. and Forms are Medication Reconciliation Form, Thank You Letter, Antibiotic Education, Prescription Opioid Use. Follow up: Emergency Department; When: As needed; Reason: Worsening of condition. Follow up: Private Physician; When: 2 - 3 days; Reason: Recheck today's complaints, Continuance of care, Re-evaluation by your physician. Problem is new. Symptoms have improved. pm1
--- NOTE | 2020-11-01 19:34 | EKG ---
Test Date: 2020-10-31 Test Time: 18:40:56 Lift Mechanic: ALLI MEASUREMENT RESULTS: Intervals: Rate: 63 CO: 158 QRSD: 82 QT: 382 QTc: 390 [place]: P: 41 CO: 158 QRS: 41 T: 29 INTERPRETIVE STATEMENTS: Normal sinus rhythm Normal ECG No previous ECG available for comparison Electronically Signed On 11-01-20 19:32:26 SOIL SPECIALIST by Kvng Esteban
[2020-11-03 12:46] VITALS: TEMP 98.2; O2SAT 100
[2020-11-03 12:47] VITALS: BP 153/76
== END 2020-10-31 20:16 | disposition home or self-care (01) ==
LOC: ER 16:31
DX: J06.9 Acute upper respiratory infection, unspecified (principal); J45.909 Unspecified asthma, uncomplicated; Z88.1 Allergy status to other antibiotic agents
CPT/HCPCS: 71045; 93005; 96372; 99285; J1100

== ENCOUNTER 2021-02-20 17:35 | Emergency (ER) | payer SELFPAY ==
--- NOTE | 2021-02-20 20:42 | ER ---
Nurse's Notes [facility] Name: Kaylie Hargrove Age: 35 yrs Sex: Female : 1985 Arrival Date: 02/20/2021 Time: 17:37 Bed Waiting Private MD: Diagnosis: Presentation: 02/20 17:46 Coronavirus screen: Client denies travel out of the [place] in the last 14 days. cough ll1 unrelated to allergies, diarrhea, difficulty breathing, fatigue, fever, headache, muscle pain, nausea, shortness of breath, sore throat, Client presents with at least one sign or symptom that may indicate coronavirus-19. Standard/surgical mask placed on the client. Ebola Screen: Patient denies travel to an Ebola-affected area in the 21 days before illness onset. Initial Sepsis Screen: Does the patient meet any 2 criteria? No. Patient's initial sepsis screen is negative. Does the patient have a suspected source of infection? Yes: Productive cough/pneumonia. Risk Assessment: Do you want to hurt yourself or someone else? Patient reports no desire to harm self or others. Onset of symptoms was February 20, 2021. 17:46 Method Of Arrival: Ambulatory ll1 17:46 Acuity: BALTAZAR 3 ll1 18:59 Chief complaint: Patient states: HANEY, cough, fatigue, sore throat for 1 day. No fever at ll1 this time. Historical: - Allergies: 17:48 Amoxicillin; ll1 17:48 EGG/POULTRY; ll1 17:48 Peanut; ll1 - PMHx: 17:48 Asthma; Ovarian cyst; covid; ll1 - PSHx: 17:48 Cholecystectomy; ; ll1 - Immunization history:: Flu vaccine is not up to date. - Social history:: Smoking status: Patient denies any tobacco usage or history of. Vital Signs: 17:46 BP 150 / 96; Pulse 78; Resp 18; Temp 98.5; Pulse Ox 98% ; Weight 89.81 kg; Height 5 ft. ll1 3 in. (160.02 cm); Pain 5/10; 17:46 Body Mass Index 35.07 (89.81 kg, 160.02 cm) ll1 ED Course: 17:37 Patient arrived in ED. ds1 17:47 Triage completed. ll1 17:48 Arm band placed on Patient notified of wait time. 1 19:34 Chel Booth, RN is Primary Nurse. 19:34 Patient's name was called from ER tereso. No response. bb Administered Medications: No medications were administered Outcome: 20:41 Patient left the ED. 1 Signatures: Corin Bergman ds1 Gloria Paulson RN RN bb Chel Booth, PEGGY WOODS Case Marquez RN RN [facility]
== END 2021-02-20 20:41 | disposition left against medical advice (07) ==
LOC: ER 17:35
DX: R05 Cough (principal); R51.9 Headache, unspecified; J02.9 Acute pharyngitis, unspecified; J45.909 Unspecified asthma, uncomplicated; Z53.21 Procedure and treatment not carried out due to patient leaving prior to being seen by health care provider
CPT/HCPCS: 99281

== ENCOUNTER 2021-08-15 09:05 | Emergency (ER) | payer SELFPAY ==
--- NOTE | 2021-08-15 09:57 | RAD REPORT ---
EXAM DESCRIPTION: RAD - Chest Single View - 08/15/2021 9:52 am CLINICAL HISTORY: Cough;Chest pain COMPARISON: October 2020 TECHNIQUE: AP portable chest image was obtained 08/15/2021 9:52 am . FINDINGS: Lungs are clear. Heart and vasculature are normal. No measurable pleural effusion and no p neumothorax. No acute bony abnormality seen. No acute aortic findings suspected. IMPRESSION: No acute cardiopulmonary process. No significant change from comparison study.
[2021-08-15 10:32] LABS: SARS-COV-2 RT PCR NEGATIVE (NEGATIVE)
[2021-08-15 10:56] LABS: Absolute Lymphocytes (CBC) 2.5 K/uL (0.7-4.9); Hematocrit 36.8 % (36.0-45.0); Lymphocytes % 40.1 % (15.3-44.8); MPV 8.6 fL (7.6-11.3); RBC Red Blood Cell Count 4.09 M/uL (3.86-4.86)
[2021-08-15 11:16] LABS: BUN Blood Urea Nitrogen 10 mg/dL (7-18); Bicarbonate 27 mmol/L (21-32); Glucose Level 95 mg/dL (74-106); Potassium 3.9 mmol/L (3.5-5.1); Sodium Level 142 mmol/L (136-145); Troponin (Emerg Dept Use Only) < 0.02 ng/mL (0.0-0.045)
--- NOTE | 2021-08-15 11:38 | ER ---
Nurse's Notes [facility] Name: Kaylie Hargrove Age: 35 yrs Sex: Female : 1985 Arrival Date: 08/15/2021 Time: 09:07 Bed 30 Private MD: Diagnosis: Acute upper respiratory infection, unspecified Presentation: 08/15 09:09 Chief complaint: Patient states: CP, radiates to back, headache, sore/itchy throat for jl7 a few days, one coworker diagnosed with covid last week and another coworker diagnosed with TB last week. Coronavirus screen: Vaccine status: Patient reports being unvaccinated. cough unrelated to allergies, Client presents with at least one sign or symptom that may indicate coronavirus-19. Standard/surgical mask placed on the client. Provider contacted for isolation considerations. Ebola Screen: No symptoms or risks identified at this time. Initial Sepsis Screen: Does the patient meet any 2 criteria? No. Patient's initial sepsis screen is negative. Does the patient have a suspected source of infection? No. Patient's initial sepsis screen is negative. Risk Assessment: Do you want to hurt yourself or someone else? Patient reports no desire to harm self or others. Onset of symptoms was August 09, 2021. 09:09 Method Of Arrival: Ambulatory jl7 09:09 Acuity: BALTAZAR 3 jl7 Triage Assessment: 09:13 General: Appears in no apparent distress. uncomfortable, Behavior is calm, cooperative, jl7 appropriate for age. Pain: Complains of pain in chest Pain radiates to back Pain currently is 7 out of 10 on a pain scale. Cardiovascular: Patient's skin is warm and dry. 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 - Social history:: Smoking status: Patient denies any tobacco usage or history of. Screenin:29 Abuse screen: Denies threats or abuse. Nutritional screening: No deficits noted. kh1 Tuberculosis screening: No symptoms or risk factors identified. Fall Risk IV access (20 points). Ambulatory Aid- None/Bed Rest/Nurse Assist (0 pts). Gait- Normal/Bed Rest/Wheelchair (0 pts) Mental Status- Oriented to own ability (0 pts). Assessment: 09:28 General: Appears in no apparent distress. comfortable, Behavior is calm, cooperative, kh1 appropriate for age. Pain: Complains of pain in chest Pain does not radiate. Pain currently is 5 out of 10 on a pain scale. Quality of pain is described as sharp, Pain began 2-3 days ago. Is continuous, Aggravated by deep breaths. Neuro: No deficits noted. Level of Consciousness is awake, alert, obeys commands, Oriented to person, place, time, Men'S Furnishings Salesperson are equal bilaterally Moves all extremities. Speech is normal, Facial symmetry appears normal. 10:19 Reassessment: Patient appears in no apparent distress at this time. No changes from 1 previously documented assessment. Patient and/or family updated on plan of care and expected duration. Pain level reassessed. Patient is alert, oriented x 3, equal unlabored respirations, skin warm/dry/pink. 11:32 Reassessment: Patient appears in no apparent distress at this time. No changes from [facility] previously documented assessment. Patient and/or family updated on plan of care and expected duration. Pain level reassessed. Patient is alert, oriented x 3, equal unlabored respirations, skin warm/dry/pink. resting quietly in bed no acute distress noted. Vital Signs: 09:09 BP 154 / 106; Pulse 82; Resp 18; Temp 98.1; Pulse Ox 100% ; Weight 91.63 kg; Height 5 7 ft. 2 in. (157.48 cm); Pain 7/10; 10:54 BP 126 / 80; Pulse 70 MON; Resp 18 S; Pulse Ox 99% on R/A; kh1 09:09 Body Mass Index 36.95 (91.63 kg, 157.48 cm) jl7 ED Course: 09:07 Patient arrived in ED. as 09:07 Dasia Logan FNP-C [facility]. kb 09:07 Santos Stokes MD is Attending Physician. kb 09:13 Triage completed. jl7 09:13 Arm band placed on right wrist. jl7 09:28 Ameena Banda is Primary Nurse. kh1 09:30 Patient has correct armband on for positive identification. Bed in low position. Call kh1 light in reach. Side rails up X 1. 09:30 No provider procedures requiring assistance completed. Inserted saline lock: 20 gauge kh1 in right antecubital area, using aseptic technique. Blood collected. Patient maintains SpO2 saturation greater than 95% on room air. 09:46 library monitor on. Pulse ox on. NIBP on. kh1 09:46 Strep Sent. kh1 09:52 Chest Single View XRAY In Process Unspecified. EDMS 10:54 Basic Metabolic Panel Sent. kh1 10:54 CBC with Diff Sent. kh1 10:54 Troponin (emerg Dept Use Only) Sent. kh1 11:48 IV discontinued, intact, bleeding controlled, No redness/swelling at site. Pressure kh1 dressing applied. Administered Medications: No medications were administered Outcome: 11:38 Discharge ordered by MD. kb 11:48 Discharged to home ambulatory. kh1 11:48 Condition: good 11:48 Discharge instructions given to patient, Instructed on discharge instructions, follow up and referral plans. medication usage, Demonstrated understanding of instructions, follow-up care, medications. 11:49 Patient left the ED. kh Signatures: Dispatcher [employer] EDMS Dasia Logan, AN/SSN 2 4 OPERATOR-C AN/SSN 2 4 OPERATOR-Melanie Rogers Jahala, RN RN jl7 Ameena Banda [facility] Corrections: (The following items were deleted from the chart) 09:52 09:46 CORONAVIRUS+MR.LAB.BRZ drawn and sent. [facility] EDAL 09:53 09:46 Influenza Screen (A \T\ B)+BA.LAB.BRZ drawn and sent. kh1 EDMS
--- NOTE | 2021-08-15 11:38 | EDPHYS ---
Physician Documentation [facility] Name: Kaylie Hargrove Age: 35 yrs Sex: Female : 1985 Arrival Date: 08/15/2021 Time: 09:07 Bed 30 Private MD: ED Physician Santos Stokes HPI: 08/15 12:59 This 35 yrs old Female presents to ER via Ambulatory with complaints of Chest kb Pain, Back Pain, Cough - exposure to TB/covid, Headache. 12:59 The patient or guardian reports cough, that is intermittent, described as mild, kb difficulty breathing. The patient has not experienced similar symptoms in the past. 13:00 Onset: The symptoms/episode began/occurred 3 day(s) ago. Severity of symptoms: At their kb worst the symptoms were moderate, in the emergency department the symptoms are unchanged. Modifying factors: The symptoms are alleviated by nothing, the symptoms are aggravated by nothing. Associated signs and symptoms: Pertinent positives: chest pain, with cough, sore throat. The patient has not recently seen a physician. Pt reports cough, headache, chest pain with cough, sore throat for 3 days. States she has been exposed to covid and TB this week. 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 - Social history:: Smoking status: Patient denies any tobacco usage or history of. ROS: 12:58 Constitutional: Negative for fever, chills, and weight loss. kb 12:58 Cardiovascular: Positive for chest pain, with cough, Negative for edema, orthopnea, palpitations, paroxysmal nocturnal dyspnea. 12:58 Respiratory: Positive for cough, shortness of breath, Negative for dyspnea on exertion, hemoptysis, orthopnea, pleurisy, sputum production, wheezing. 12:58 All other systems are negative. 12:59 ENT: Positive for sore throat. kb 12:59 Neuro: Positive for headache. Exam: 12:59 Constitutional: This is a well developed, well nourished patient who is awake, alert, kb and in no acute distress. Head/Face: Normocephalic, atraumatic. ENT: Moist Mucous membranes Cardiovascular: Regular rate and rhythm with a normal S1 and S2. No gallops, murmurs, or rubs. No pulse deficits. Respiratory: Respirations even and unlabored. No increased work of breathing, no retractions or nasal flaring. Skin: Warm, dry with normal turgor. Normal color. MS/ Extremity: Pulses equal, no cyanosis. Neurovascular intact. Full, normal range of motion. Neuro: Awake and alert, GCS 15, oriented to person, place, time, and situation. Moves all extremities. Normal gait. Psych: Awake, alert, with orientation to person, place and time. Behavior, mood, and affect are within normal limits. Vital Signs: 09:09 BP 154 / 106; Pulse 82; Resp 18; Temp 98.1; Pulse Ox 100% ; Weight 91.63 kg; Height 5 jl7 ft. 2 in. (157.48 cm); Pain 7/10; 10:54 BP 126 / 80; Pulse 70 MON; Resp 18 S; Pulse Ox 99% on R/A; kh1 09:09 Body Mass Index 36.95 (91.63 kg, 157.48 cm) jl7 MDM: 09:07 Patient medically screened. kb 12:57 Data reviewed: vital signs, nurses notes. Data interpreted: Pulse oximetry: on room air kb is 99 %. Interpretation: normal. Counseling: I had a detailed discussion with the patient and/or guardian regarding: the historical points, exam findings, and any diagnostic results supporting the discharge/admit diagnosis, lab results, radiology results, the need for outpatient follow up, a family practitioner, to return to the emergency department if symptoms worsen or persist or if there are any questions or concerns that arise at home. 08/15 09:14 Order name: Strep; Complete Time: 10:31 kb 08/15 10:32 Order name: COVID-19/FLU A+B; Complete Time: 10:41 EDMS 08/15 10:34 Order name: Throat Culture EDCT 08/15 10:44 Order name: Troponin (emerg Dept Use Only); Complete Time: 11:37 kb 08/15 09:14 Order name: Chest Single View XRAY; Complete Time: 10:05 kb 08/15 10:44 Order name: EKG; Complete Time: 10:44 kb 08/15 10:44 Order name: EKG - Nurse/Tech; Complete Time: 10:54 kb 08/15 10:44 Order name: CBC with Diff; Complete Time: 11:03 kb 08/15 10:44 Order name: Basic Metabolic Panel; Complete Time: 11:37 kb Administered Medications: No medications were administered Disposition Summary: 08/15/21 11:38 Discharge Ordered Location: Home kb Condition: Stable kb Diagnosis - Acute upper respiratory infection, unspecified kb Followup: kb - With: Emergency Department - When: As needed - Reason: Worsening of condition Followup: kb - With: Private Physician - When: 2 - 3 days - Reason: Recheck today's complaints, Continuance of care, Re-evaluation by your physician Discharge Instructions: - Upper Respiratory Infection, Adult, [id number] kb - Viral Respiratory Infection, [id number] kb - Discharge Summary Sheet ch5 Forms: - Medication Reconciliation Form kb - Thank You Letter kb - SBAR form ch5 - Antibiotic Education kb - Prescription Opioid Use kb Prescriptions: - albuterol sulfate 90 mcg/actuation Inhalation HFA aerosol inhaler - inhale 2 puff by INHALATION route every 4-6 hours As needed; 1 Inhaler; kb Refills: 0, Product Selection Permitted Addendum: 08/17/2021 10:56 Co-signature as Attending Physician, Santos Stokes MD I agree with the assessment and c jones plan of care. Signatures: Dispatcher [employer] EDDasia Torres, POINTER MACHINE OPERATOR-C POINTER MACHINE OPERATOR-Dayob Santos Stokes MD MD cha Leal, Jahala, RN RN jl7 Corrections: (The following items were deleted from the chart) 08/15 09:52 09:14 CORONAVIRUS+MR.LAB.BRZ ordered. EDMS EDMS 09:53 09:14 Influenza Screen (A \T\ B)+BA.LAB.BRZ ordered. EDMS EDMS
[2021-08-15 12:20] VITALS: TEMP 98.1
[2021-08-15 12:21] VITALS: BP 126/80; O2SAT 99
--- NOTE | 2021-08-15 16:40 | EKG ---
Test Date: 2021-08-15 Test Time: 09:24:22 Command And Control Officer: BOSSMAN MEASUREMENT RESULTS: Intervals: Rate: 74 AK: 156 QRSD: 86 QT: 384 QTc: 426 [place]: P: 34 AK: 156 QRS: 24 T: 36 INTERPRETIVE STATEMENTS: Normal sinus rhythm Normal ECG Compared to ECG 10/31/2020 18:40:56 No significant changes Electronically Signed On 08-15-21 16:38:54 CDT by Kvng Esteban
== END 2021-08-15 11:49 | disposition home or self-care (01) ==
LOC: ER 09:05
DX: J06.9 Acute upper respiratory infection, unspecified (principal); Z20.822 Contact with and (suspected) exposure to COVID-19; Z88.1 Allergy status to other antibiotic agents; Z91.010 Allergy to peanuts; Z91.012 Allergy to eggs; Z91.018 Allergy to other foods
CPT/HCPCS: 0240U; 36415; 71045; 80048; 84484; 85025; 87070; 87081; 93005; 99285

== ENCOUNTER 2021-12-17 13:34 | Emergency (ER) | payer SELFPAY ==
[2021-12-17] MEDS ORDERED: TETRACAINE HCL 0.5% 4ML OPTH ONE (16:03)
[2021-12-17] MEDS ORDERED: FLUORESCEIN SODIUM 1 MG/WRAP ONE (16:03)
--- NOTE | 2021-12-17 16:22 | ER ---
Nurse's Notes [facility] Name: Kaylie Hargrove Age: 36 yrs Sex: Female : 1985 Arrival Date: 12/17/2021 Time: 13:37 Bed 12 Private MD: Diagnosis: Injury of conjunctiva and corneal abrasion without foreign body, right eye Presentation: 12/17 15:22 Chief complaint: Patient states: right eye pain that began this morning around 0300; vg1 states fell asleep with contacts on and was unable to find the one in the Right eye. Coronavirus screen: Vaccine status: Patient reports being unvaccinated. Client denies travel out of the [place] in the last 14 days. Ebola Screen: Patient negative for fever greater than or equal to 101.5 degrees Fahrenheit, and additional compatible Ebola Virus Disease symptoms. Initial Sepsis Screen: Does the patient meet any 2 criteria? No. Patient's initial sepsis screen is negative. Does the patient have a suspected source of infection? No. Patient's initial sepsis screen is negative. Risk Assessment: Do you want to hurt yourself or someone else? Patient reports no desire to harm self or others. Onset of symptoms was December 17, 2021. 15:22 Method Of Arrival: Ambulatory vg1 15:22 Acuity: BALTAZAR 3 vg1 16:34 Mechanism of Injury: r/o FB. The patient denies any loss of vision. ll1 Triage Assessment: 15:25 General: Appears uncomfortable, Behavior is cooperative, crying. Pain: Complains of vg1 pain in right eye. EENT: Eyes are tearing on outer aspect of conjuctiva of right eye, iris of right eye and inner aspect of conjuctiva of right eye. Derm:. Musculoskeletal: Swelling present in right eye. 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 - Social history:: Smoking status: Patient denies any tobacco usage or history of. Screenin:33 Abuse screen: Denies threats or abuse. Nutritional screening: No deficits noted. ll1 Tuberculosis screening: No symptoms or risk factors identified. Fall Risk Gait- Impaired (20 pts.). Total Wagner Fall Scale indicates No Risk (0-24 pts). Assessment: 16:33 Reassessment: No changes from previously documented assessment. Patient and/or family ll1 updated on plan of care and expected duration. Pain level reassessed. Patient is alert, oriented x 3, equal unlabored respirations, skin warm/dry/pink. Patient states feeling better. 16:35 EENT: Sclera/Cornea are reddened in outer aspect of conjuctiva of right eye. ll1 Vital Signs: 15:22 BP 152 / 97; Pulse 80; Resp 17; Temp 97.9; Pulse Ox 100% ; Weight 92.53 kg; Height 5 vg1 ft. 3 in. (160.02 cm); Pain 8/10; 16:32 BP 148 / 96; Pulse 80; Resp 16; Pulse Ox 100% ; ll1 15:22 Body Mass Index 36.14 (92.53 kg, 160.02 cm) vg1 Visual Acuity: 16:35 ; n/a ll1 ED Course: 13:37 Patient arrived in ED. ds1 15:25 Triage completed. vg1 15:25 Arm band placed on. vg1 15:41 [facility] Logan [facility] kb 15:41 Santos Stokes MD is Attending Physician. kb 15:42 Case Marquez RN is Primary Nurse. ll1 15:42 Patient placed in an exam room, on a stretcher. ll1 16:33 No provider procedures requiring assistance completed. Patient did not have IV access ll1 during this emergency room visit. 16:35 Patient has correct armband on for positive identification. ll1 Administered Medications: 16:28 Drug: Tetracaine Drops 0.5 % 1 drops Route: Ophthalmic; Site: right eye; ll1 16:35 Follow up: Response: No adverse reaction ll1 Outcome: 16:21 Discharge ordered by . kb 16:33 Discharged to home ambulatory. ll1 16:33 Condition: stable 16:33 Discharge instructions given to patient, Instructed on discharge instructions, follow up and referral plans. medication usage, Demonstrated understanding of instructions, follow-up care, medications, Prescriptions given X 1. 16:36 Patient left the ED. ll1 Signatures: Dasia Logan FNP-C CHILD AND ADOLESCENT PSYCHIATRIST-Corin Hernandez ds1 Caty Florez RN RN vg1 Case Marquez RN RN ll1 Corrections: (The following items were deleted from the chart) 15:26 15:22 Pulse 80bpm; Resp 17bpm; Pulse Ox 100%; Temp 97.9F; 92.53 kg; Height 5 ft. 3 in.; vg1 BMI: 36.1; Pain 8/10; vg1
--- NOTE | 2021-12-17 16:23 | EDPHYS ---
Physician Documentation [facility] Name: Kaylie Hargrove Age: 36 yrs Sex: Female : 1985 Arrival Date: 12/17/2021 Time: 13:37 Bed 12 Private MD: ED Physician Santos Stokes HPI: 12/17 16:22 This 36 yrs old Female presents to ER via Ambulatory with complaints of Eye kb Pain. 16:17 The patient is experiencing pain, tearing, to the right eye, caused by contact lens. kb Onset: The symptoms/episode began/occurred this morning. Duration: the symptoms are continuous. Aggravated by opening eye, Alleviated by keeping eye closed. Associated signs and symptoms: Pertinent positives: None. Patient wears soft contacts. Severity of symptoms: At their worst the symptoms were moderate in the emergency department the symptoms are unchanged. The patient has not experienced similar symptoms in the past. The patient has not recently seen a physician. Pt states she fell asleep with her contacts in and woke up with pain to right side. States she couldn't find the contact in that eye, has tried to get it out, but unable to locate it. Now pain is worse. . 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 - Social history:: Smoking status: Patient denies any tobacco usage or history of. ROS: 16:17 Constitutional: Negative for fever, chills, and weight loss. kb 16:17 Eyes: Positive for foreign body sensation, pain. 16:17 All other systems are negative. Exam: 16:16 Constitutional: This is a well developed, well nourished patient who is awake, alert, kb and in no acute distress. Head/Face: Normocephalic, atraumatic. Respiratory: Respirations even and unlabored. No increased work of breathing. Talking in full sentences Skin: Warm, dry with normal turgor. Normal color. MS/ Extremity: Pulses equal, no cyanosis. Neurovascular intact. Full, normal range of motion. Neuro: Awake and alert, GCS 15, oriented to person, place, time, and situation. Moves all extremities. Normal gait. Psych: Awake, alert, with orientation to person, place and time. Behavior, mood, and affect are within normal limits. 16:16 Eyes: Periorbital structures: appear normal, Pupils: equal, round, and reactive to light and accomodation, Extraocular movements: intact throughout, Conjunctiva: normal, Corneas: abrasion, that is moderate sized, foreign body, is not appreciated, a fluorescein strip employed to appreciate the findings. Vital Signs: 15:22 BP 152 / 97; Pulse 80; Resp 17; Temp 97.9; Pulse Ox 100% ; Weight 92.53 kg; Height 5 vg1 ft. 3 in. (160.02 cm); Pain 8/10; 16:32 BP 148 / 96; Pulse 80; Resp 16; Pulse Ox 100% ; ll1 15:22 Body Mass Index 36.14 (92.53 kg, 160.02 cm) vg1 Visual Acuity: 16:35 ; n/a ll1 MDM: 15:41 Patient medically screened. kb 16:16 Data reviewed: vital signs, nurses notes. Data interpreted: Pulse oximetry: on room air kb is 100 %. Interpretation: normal. Counseling: I had a detailed discussion with the patient and/or guardian regarding: the historical points, exam findings, and any diagnostic results supporting the discharge/admit diagnosis, the need for outpatient follow up, an opthalmologist, to return to the emergency department if symptoms worsen or persist or if there are any questions or concerns that arise at home. 12/17 15:57 Order name: Eye Tray; Complete Time: 16:28 kb 12/17 15:57 Order name: Fluoresene Opth strip; Complete Time: 16:28 kb Administered Medications: 16:28 Drug: Tetracaine Drops 0.5 % 1 drops Route: Ophthalmic; Site: right eye; ll1 16:35 Follow up: Response: No adverse reaction ll1 Disposition: 12/18 10:34 Co-signature as Attending Physician, Santos Stokes MD I agree with the assessment and basilia plan of care. Disposition Summary: 12/17/21 16:21 Discharge Ordered Location: Home kb Condition: Stable kb Diagnosis - Injury of conjunctiva and corneal abrasion without foreign body, right eye kb Followup: kb - With: Emergency Department - When: As needed - Reason: Worsening of condition Followup: kb - With: Private Physician - When: 2 - 3 days - Reason: Recheck today's complaints, Continuance of care, Re-evaluation by your physician Discharge Instructions: - Discharge Summary Sheet kb - Corneal Abrasion, [id number] kb Forms: - Medication Reconciliation Form kb - Thank You Letter kb - Antibiotic Education kb - Prescription Opioid Use kb - Work release form eb Prescriptions: - Erythromycin 5 mg/gram (0.5 %) Ophthalmic Ointment - apply 1 ribbon by OPHTHALMIC route every 8 hours; 1 tube; Refills: 0, Product kb Selection Permitted Signatures: Dasia Logan, MOI BONILLA-Santos Hay MD MD cha Garcia, Victoria, RN RN vg1 Case Marquez RN RN ll1
[2021-12-17 17:01] VITALS: TEMP 97.9; O2SAT 100
[2021-12-17 17:12] VITALS: BP 148/96
== END 2021-12-17 16:36 | disposition home or self-care (01) ==
LOC: ER 13:34
DX: S05.01XA Injury of conjunctiva and corneal abrasion without foreign body, right eye, initial encounter (principal); Z88.1 Allergy status to other antibiotic agents; Z91.010 Allergy to peanuts; Z91.012 Allergy to eggs; Z91.018 Allergy to other foods

== ENCOUNTER 2022-02-15 20:13 | Emergency (ER) | payer OTHER ==
--- OUTSIDE RECORDS SUMMARY | 2022-02-15 20:16 | XMS REPORT | Continuity of Care Document ---
:1985 Author Organization [facility] t Address [address] [place] [address] Care Team Providers Name Role Phone Unavailable Unavailable Unavailable Problems This patient has no known problems. Allergies, Adverse Reactions, Alerts This patient has no known allergies or adverse reactions. Medications This patient has no known medications. Procedures This patient has no known procedures. Results Test Description Test Time Test Comments Results Result Comments Source SARS-CoV-2 (COVID-19), RT-PCR/TMA 2021-12-12 13:40:45 Test Item Value Reference Range Interpretation Comme nts SARS-CoV-2 INTERPRETATION NEGATIVE SEE NOTE S ARS-CoV-2 RNA NOT (test code = 15901) DETECTED Negative results do not preclude SARS-C oV-2 infection and should notb e used as the sole basis for patient management deci sions. Negativeresults must be combined with clinical o bservations, patient history ,and epidemiological information. Optimum specime n types and timingfor peak viral levels during infectio ns caused by SARS-CoV-2 have notbeen determined. Col lection of multiple specim ens or types ofspecimens may be necessary to detect virus. I mproper specimencollect ion and handling, sequence variab ility under primers/probes, or organism present below t he limit of detection may l ead to falsenegative r esults. Positive and negative pr edictive values oftesting are h ighly dependent on prevalence. False negative testresults are more likely when prevalence is h igh. SOURCE (test code = 92195) NOT SPECIFIED Note: Methodology is Emmie Khadijah Real-Time RT-PCR. The expected r esult or reference range is NEGATIVE (Not Detected). For more information regarding COVID -19 testing to include clinica linformation, methodology det ail, intended use, FDA author ization andrecommended fact sheets for patients or hea lthcare providers, see Internet Gold - Golden Lines Announcement: S ARS-CoV-2 (COVID-19) by N CARLY at URL below (note,fact shee ts are provided by method given in report:https:// www.[employer]/meeta feldmanicians/kraig t-communications/ Alternatively, see downloadable PDF fact sheet at:https://www. [employer]/COVID -19-RT-PCR UNLESS OTHERWISE INDIC ATED, ALL TESTING PERFORMED [facility], [place] [address] LABORATORY DIRE CTOR: SAMANTHA ZIMMERMAN M.D. CLIA NUMBER [id number] [place]. [id number] SARS-CoV-2 (COVID-19), RT-PCR/[id number] 18:36:06 Test Item Value Reference Interpretation Comments Range SARS-CoV-2 NEGATIVE SEE NOTE SARS-CoV-2 RNA NOT INTERPRETATION DETECTEDNegat félix (test code = 80313) results do not preclude SARS-CoV-2 infe ction and should notb e used as the sole bas is for patient managem ent decisions. Negativeresults must be combined with c linical observations, p atient history,and epidemiological information. Op timum specimen types and timingfor peak viral levels during infections caus ed by SARS-CoV-2 have notbeen determined. Col lection of multiple spe cimens or types ofspec imens may be necessar y to detect virus. I mproper specimencollect ion and handling, seque nce variability und er primers/probes, or organism presen t below the limit of de tection may lead to falsenegative r esults. Positive and ne gative predictive valu es oftesting are h ighly dependent on prevalence. Fal se negative testre sults are more likely when prevalence is h igh. SOURCE (test code = NASOPHARYNGEAL Note: [place] [address]) Emmie Khadijah Licha l-Time RT-PCR. The exp ected result or ref erence range is NEGATI VE (Not Detected). For more information reg arding COVID-19 testin g to include clinicalinforma tion, methodology det ail, intended use, F DA authorization andrecommended fact sheets for kemar ents or healthcare prov iders, see Internet Gold - Golden Lines Announcement: SARS-CoV-2 (COV ID-19) by NAAT at URL below (note,fact shee ts are provided by met hod given in report:https:// www.[employer].com/clinici ans/otoniel nt-communicatio ns/ Alternatively, see downloadable PD F fact sheet at:https://www. [employer]/COVID-19-RT -PCR UNLESS OTHERW ISE INDICATED, ALL TESTING PERFORMED [facility] NICAL PATHOLOG[facility] LAB[facility] [address] [place] [address] 4 LABORATORY DI MAURICE: Angeli CARTER [id number] CAP ACCREDITATION N O. [id number]
--- NOTE | 2022-02-15 21:26 | ER ---
Nurse's Notes [facility] Name: Kaylie Hargrove Age: 36 yrs Sex: Female : 1985 Arrival Date: 02/15/2022 Time: 20:35 Bed Waiting [facility] MD: Diagnosis: ED Course: 02/15 20:35 Patient arrived in ED. es Administered Medications: No medications were administered Outcome: 21:25 Patient left the ED. ab2 Signatures: Nica Jung Alexis ab2
== END 2022-02-15 21:25 | disposition left against medical advice (07) ==
LOC: ER 20:13
DX: Z02.9 Encounter for administrative examinations, unspecified (principal)

== ENCOUNTER 2023-08-02 11:58 | Emergency (ER) | payer OTHER ==
--- OUTSIDE RECORDS SUMMARY | 2023-08-02 12:02 | XMS REPORT | Continuity of Care Document ---
:1985 Author Organization [facility] t Address [address] [place] [address] Care Team Providers Name Role Phone Unavailable [...] S ARS-CoV-2 RNA NOT (test code = 89312) DETECTED Negative results do not preclude SARS-C [...] is h igh. SOURCE (test code = 17726) NOT SPECIFIED Note: Methodology is Emmie Khadijah Real-Time RT-PCR. The expected result or reference range is NEGATI VE (Not Detected). For more information regarding COVID -19 testing to include clinica linformation, methodology det ail, intended use, FDA author ization andrecommended fact sheets for patients or hea ltare providers, see NewTest Announcement: S ARS-CoV-2 (COVID-19) by Jasmyne CARROLL at URL below (note,fact shee ts are provided by method given in report:https:// www.[employer]/c linicians/kraig t-communications/ Alternatively, see downloadable PDF fact sheet at:https://www. [employer]/COVID -19-RT-PCR UNLE SS OTHERWISE INDICATED, ALL TESTING PERFORMED [facility]. [address] [place] [address] 4 FILLING HAULER: Angeli MCKENNA [id number] CAP ACCREDITATION N O. [id number] SARS-CoV-2 (COVID-19), RT-PCR/[id number] 18:36:06 Test Item Value Reference Interpretation Comments Range SARS-CoV-2 NEGATIVE SEE NOTE SARS-CoV-2 RNA NOT INTERPRETATION DETECTEDNegat félix (test code = 93483) results do not preclude SARS-C oV-2 infection and s hould notbe used as t he sole basis for patie nt management deci sions. Negativeresults must be combined wit h clinical observ ations, patient history ,and epidemiological information. Op timum specimen types and timingfor peak viral levels during infections caus ed by SARS-CoV-2 have notbeen determi tara. Collection of m ultiple specimens or ty pes ofspecimens may be necessary to de tect virus. Improper specimencollect ion and handling, seque nce variability und er primers/probes, or organism presen t below the limit of de tection may lead to falsenegative r esults. Positive and ne gative predictive valu es oftesting are h ighly dependent on prevalence. Fal se negative testre sults are more likely when prevalence is h igh. SOURCE (test code = NASOPHARYNGEAL Note: [place] [address]) Emmie Khadijah Licha l-Time RT-PCR. The exp ected result or refer ence range is NEGATI VE (Not Detected). For more information reg arding COVID-19 testin g to include clinicalinforma tion, methodology det ail, intended use, F DA authorization andrecommended fact sheets for kemar ents or healthcare prov iders, see NewTest Announcement: SARS-CoV-2 (COV ID-19) by NAAT at URL below (note,fact shee ts are provided by met hod given in report:https:// www.[employer].com/clinic ians/cl ient-communicat ions/ Alternatively, see downloadable PD F fact sheet at:https://www. [employer] .OrangeHRM/COVID-19-R T-PCR UNLESS OTHERWIS E INDICATED, ALL TESTING PERFORMED [facility]. [address] [place] [id number] [place] [address] DIRECTOR: SAMANTHA ZIMMERMAN M.D. CLIA NUMBER [id number] CAP ACCREDITATION N O. [id number]
--- NOTE | 2023-08-02 12:53 | RAD REPORT ---
EXAM DESCRIPTION: CT - Head Brain Wo Cont - 08/02/2023 12:34 pm CLINICAL HISTORY: Headache COMPARISON: none TECHNIQUE: Computed axial tomography of the head was obtained. IV contrast was not requested. All CT scans are performed using dose optimization technique as appropriate and may include automated exposure control or mA/KV adjustment according to patient size. FINDINGS: An intracranial bleed is not seen The ventricles are normal in caliber No significant hypodense areas within the brain visualized No extra-axial fluid collection is noted. Fluid within the sinuses/ mastoids is not seen IMPRESSION: No acute intracranial abnormality is seen If patient's symptoms persist MRI of the brain would be recommended
--- NOTE | 2023-08-02 12:54 | RAD REPORT ---
EXAM DESCRIPTION: Phyllis Single View08/02/2023 12:43 pm CLINICAL HISTORY: Chest pain COMPARISON: 2020 FINDINGS: The lungs appear clear of acute infiltrate. The heart is normal size IMPRESSION: No acute abnormalities displayed
[2023-08-02 13:21] LABS: Absolute Lymphocytes (CBC) 2.5 K/uL (0.7-4.9); Hematocrit 34.7 % (36.0-45.0); Lymphocytes % 35.2 % (15.3-44.8); MCV 86.7 fL (80-100); MPV 7.9 fL (7.6-11.3); Platelets 410 thou/uL (152-406); Protime INR 1.05
[2023-08-02 13:38] LABS: Bilirubin Direct 0.1 mg/dL (0-0.2); Bilirubin Indirect, Calculated 0.3 mg/dL (0.2-0.8); Bilirubin Total 0.4 mg/dL (0.2-1.0); Potassium 3.6 mEq/L (3.5-5.1); Troponin High Sensitivity 4.2 pg/mL (<58.9)
[2023-08-02 13:41] LABS: Arterial Blood Carboxyhemoglob 1.5 % (0-1.5); Blood Gas Oxyhemoglobin 93.9 % (94-97); Blood O2 Saturation 96.8 % (92-98.5)
[2023-08-02] MEDS ORDERED: predniSONE 20 MG TAB ONE (14:23)
[2023-08-02] MEDS ORDERED: METHYLPREDNISOLONE 125 MG INJ ONE (14:23)
--- NOTE | 2023-08-02 14:23 | RAD REPORT ---
EXAM DESCRIPTION: CT - Angio Aorta For Dissection - 08/02/2023 1:46 pm CLINICAL HISTORY: . Chest and abd pain COMPARISON: None TECHNIQUE: Computed tomography angiography of the chest, abdomen pelvis were obtained. 100 cc Isovue 370 was administered intravenously. Coronal and sagittal reconstruction were performed. MIP 3D reconstruction was performed All CT scans are performed using dose optimization technique as appropriate and may include automated exposure control or mA/KV adjustment according to patient size. FINDINGS: An aortic dissection is not seen. An aortic aneurysm is not displayed. No pulmonary embolus noted The celiac, SMA and FADUMO are patent . A lung consolidation is not present. A pericardial effusion is not seen. A pleural effusion is not no janie. The liver,spleen, pancreas,adrenals and kidneys demonstrate no significant abnormality. Cholecystecto my There no evidence diverticulitis. Normal appendix Tampon within the vagina. No adnexal mass Prominent low-density areas within the uterus presumably endometrium Mild posterior subluxation L4 on L5. Spondylosis lower lumbar spine Small umbilical and ventral hernias IMPRESSION: Negative for an aortic dissection. Prominent low-density areas within the uterus presumably endometrium. Transabdominal endovaginal sono graphy is recommended for further evaluation
[2023-08-02] MEDS ORDERED: ALBUTEROL 2.5 MG/3 ML NEB SOL ONE (14:24)
[2023-08-02] MEDS ORDERED: IPRATROPIUM BROM 0.5MG/2.5ML ONE (14:24)
--- NOTE | 2023-08-02 14:29 | ER ---
Nurse's Notes [facility] Name: Kaylie Hargrove Age: 37 yrs Sex: Female : 1985 Arrival Date: 08/02/2023 Time: 11:58 Bed 17 Private MD: Diagnosis: Dyspnea;Mild persistent asthma;Chest pain, unspecified Presentation: 08/02 12:20 Chief complaint: SOB, chest tightness, and pain with breathing x 2 days. SOB unrelieved hb by Xopenex inhaler. Coronavirus screen: Client presents with at least one sign or symptom that may indicate coronavirus-19. Provider contacted for isolation considerations. Ebola Screen: No symptoms or risks identified at this time. Initial Sepsis Screen: Does the patient meet any 2 criteria? No. Patient's initial sepsis screen is negative. Does the patient have a suspected source of infection? No. Patient's initial sepsis screen is negative. Risk Assessment: Do you want to hurt yourself or someone else? Patient reports no desire to harm self or others. Onset of symptoms was August 01, 2023. 12:20 Method Of Arrival: Ambulatory hb 12:20 Acuity: BALTAZAR 3 hb Historical: - Allergies: 12:23 Amoxicillin; hb 12:23 EGG/POULTRY; hb 12:23 Peanut; hb - Home Meds: 12:23 Albuterol Inhl [Active]; hb - PMHx: 12:23 COVID; Asthma; Ovarian cyst; hb - Immunization history:: Adult Immunizations up to date. - Social history:: Smoking status: Patient denies any tobacco usage or history of. - Family history:: not pertinent. Vital Signs: 12:20 BP 161 / 84; Pulse 68; Resp 20; Temp 98.2(O); Pulse Ox 100% on R/A; Weight 88.45 kg; hb Height 5 ft. 3 in. ; Pain 8/10; 12:20 Body Mass Index 34.54 (88.45 kg, 160.02 cm) hb 12:20 Pain Scale: Adult hb ED Course: 12:01 Patient arrived in ED. mg5 12:10 Santos Stokes MD is Attending Physician. basilia 12:22 Triage completed. hb 12:23 Arm band placed on. hb 12:35 CT Head Brain wo Cont In Process Unspecified. EDMS 12:42 XRAY Chest (1 view) In Process Unspecified. EDMS 12:54 Crystal Caceres, RN is Primary Nurse. ap3 13:02 Lipase Sent. bc6 13:02 Basic Metabolic Panel Sent. bc6 13:02 CBC with Diff Sent. bc6 13:02 LFT's Sent. bc6 13:02 Magnesium Sent. bc6 13:02 NT PRO-BNP Sent. bc6 13:02 PT-INR Sent. bc6 13:03 Troponin HS Sent. bc6 13:03 Inserted saline lock: 20 gauge in left antecubital area, using aseptic technique. Blood bc6 collected. 13:48 CT Aorta for Dissection In Process Unspecified. EDMS 14:28 Rhett Martini MD is Referral Physician. [facility] 15:05 Troponin High Sensitivity: 230 PM Sent. mb9 15:44 No provider procedures requiring assistance completed. IV discontinued, intact, mb9 bleeding controlled, No redness/swelling at site. Pressure dressing applied. Administered Medications: 14:20 Drug: MethylPrednisoLONE IVP 125 mg Route: IVP; Site: left antecubital; ap3 14:20 Drug: predniSONE PO 40 mg Route: PO; ap3 14:20 Drug: Albuterol Inhalation 5 mg Route: Inhalation; ap3 14:20 Drug: Ipratropium Inhalation Aerosol 0.5 mg Route: Inhalation; ap3 Outcome: 14:28 Discharge ordered by . [facility] 15:43 Discharged to home ambulatory. mb9 15:43 Condition: stable 15:43 Discharge instructions given to patient, Instructed on discharge instructions, follow up and referral plans. Demonstrated understanding of instructions, follow-up care, medications, Prescriptions given X 4. 15:44 Patient left the ED. mb9 Signatures: Dispatcher [employer] EDSantos Sims MD MD cha Baxter, Heather RN Crystal Corrales RN RN ap3 Ankita Nguyen RN RN mb9 Savana Torre 6 Jannette Arauz mg5
--- NOTE | 2023-08-02 14:29 | EDPHYS ---
Physician Documentation [facility] Name: Kaylie Hargrove Age: 37 yrs Sex: Female : 1985 Arrival Date: 08/02/2023 Time: 11:58 Bed 17 Private MD: ED Physician Santos Stokes HPI: 08/02 13:37 This 37 yrs old Female presents to ER via Ambulatory with complaints of Chest basilia Pain, Back Pain, Headache, Pain All Over. 13:37 The patient or guardian reports chest pain that is located primarily in the anterior basilia chest wall, bilaterally. The pain does not radiate. Associated signs and symptoms: Pertinent positives: shortness of breath. The chest pain is described as squeezing. Duration: The patient or guardian reports multiple episodes, with no pattern. Modifying factors: The symptoms are alleviated by nothing. the symptoms are aggravated by nothing. Severity of pain: At its worst the pain was mild in the emergency department the pain is unchanged. The patient has experienced similar episodes in the past, several times. Historical: - Allergies: 12:23 Amoxicillin; hb 12:23 EGG/POULTRY; hb 12:23 Peanut; hb - Home Meds: 12:23 Albuterol Inhl [Active]; hb - PMHx: 12:23 COVID; Asthma; Ovarian cyst; hb - Immunization history:: Adult Immunizations up to date. - Social history:: Smoking status: Patient denies any tobacco usage or history of. - Family history:: not pertinent. ROS: 13:37 Constitutional: Negative for fever, chills, and weight loss, Eyes: Negative for injury, basilia pain, redness, and discharge, ENT: Negative for injury, pain, and discharge, Neck: Negative for injury, pain, and swelling, Cardiovascular: Negative for chest pain, palpitations, and edema, Abdomen/GI: Negative for abdominal pain, nausea, vomiting, diarrhea, and constipation, Back: Negative for injury and pain, : Negative for injury, bleeding, discharge, and swelling, MS/Extremity: Negative for injury and deformity, Skin: Negative for injury, rash, and discoloration, Neuro: Negative for headache, weakness, numbness, tingling, and seizure, Psych: Negative for depression, anxiety, suicide ideation, homicidal ideation, and hallucinations, Allergy/Immunology: Negative for hives, rash, and allergies, Endocrine: Negative for neck swelling, polydipsia, polyuria, polyphagia, and marked weight changes, Hematologic/Lymphatic: Negative for swollen nodes, abnormal bleeding, and unusual bruising. 13:37 Respiratory: Positive for cough, shortness of breath, wheezing, expiratory. Exam: 13:37 Constitutional: This is a well developed, well nourished patient who is awake, alert, basilia and in no acute distress. Head/Face: Normocephalic, atraumatic. Eyes: Pupils equal round and reactive to light, extra-ocular motions intact. Lids and lashes normal. Conjunctiva and sclera are non-icteric and not injected. Cornea within normal limits. Periorbital areas with no swelling, redness, or edema. ENT: Nares patent. No nasal discharge, no septal abnormalities noted. Tympanic membranes are normal and external auditory canals are clear. Oropharynx with no redness, swelling, or masses, exudates, or evidence of obstruction, uvula midline. Mucous membranes moist. Neck: Trachea midline, no thyromegaly or masses palpated, and no cervical lymphadenopathy. Supple, full range of motion without nuchal rigidity, or vertebral point tenderness. No Meningismus. Chest/axilla: Normal chest wall appearance and motion. Nontender with no deformity. No lesions are appreciated. Cardiovascular: Regular rate and rhythm with a normal S1 and S2. No gallops, murmurs, or rubs. Normal PMI, no JVD. No pulse deficits. Respiratory: Lungs have equal breath sounds bilaterally, clear to auscultation and percussion. No rales, rhonchi or wheezes noted. No increased work of breathing, no retractions or nasal flaring. Abdomen/GI: Soft, non-tender, with normal bowel sounds. No distension or tympany. No guarding or rebound. No evidence of tenderness throughout. Back: No spinal tenderness. No costovertebral tenderness. Full range of motion. Skin: Warm, dry with normal turgor. Normal color with no rashes, no lesions, and no evidence of cellulitis. MS/ Extremity: Pulses equal, no cyanosis. Neurovascular intact. Full, normal range of motion. Neuro: Awake and alert, GCS 15, oriented to person, place, time, and situation. Cranial nerves II-XII grossly intact. Motor strength 5/5 in all extremities. Sensory grossly intact. Cerebellar exam normal. Normal gait. Psych: Awake, alert, with orientation to person, place and time. Behavior, mood, and affect are within normal limits. 13:37 ECG was reviewed by the Attending Physician. Vital Signs: 12:20 BP 161 / 84; Pulse 68; Resp 20; Temp 98.2(O); Pulse Ox 100% on R/A; Weight 88.45 kg; hb Height 5 ft. 3 in. ; Pain 8/10; 12:20 Body Mass Index 34.54 (88.45 kg, 160.02 cm) hb 12:20 Pain Scale: Adult hb MDM: 12:10 Patient medically screened. basilia 13:45 Differential diagnosis: abnormal EKG, acute myocardial infarction, acute pericarditis, basilia anxiety, Cholelithiasis costochondritis, esophagitis, gastroesophageal reflux disease (GERD), hiatal hernia, pancreatitis, peptic ulcer disease, pleurisy, pneumonia, pneumothorax, pulmonary embolus, stable angina, thoracic aortic disection, unstable angina. HEART Score: History: Slightly Suspicious (0), ECG: Normal (0), Age: < or = 45 years (0), Risk Factors: No Risk Factors Known (0), Troponin: < or = 1 x Normal Limit (0), Total Score = 0. LOGAN Risk Score: TOTAL SCORE = 0. Data reviewed: vital signs, nurses notes, lab test result(s), EKG, radiologic studies, CT scan, plain films. Consideration of Admission/Observation Escalation of care including admission/observation considered. I considered the following discharge prescriptions or medication management in the emergency department Medications were administered in the Emergency Department. See MAR. Independent interpretation of the following test(s) in the Emergency Department EKG: See my EKG interpretation above. Test considered but Not performed: Ultrasound NO 2 D ECHO. Historians other than the Patient: PT WELL INFORMED. Care significantly affected by the following chronic conditions: COVID, ASTHMA, OVARIAN CYST. Counseling: I had a detailed discussion with the patient and/or guardian regarding the historical points, exam findings, and any diagnostic results supporting the discharge/admit diagnosis, lab results, radiology results, the need for outpatient follow up, for definitive care, a family practitioner, a child welfare manager. 08/02 12:12 Order name: Basic Metabolic Panel; Complete Time: 14:27 08/02 12:12 Order name: CBC with Diff; Complete Time: 13:32 08/02 12:12 Order name: LFT's; Complete Time: 14:27 08/02 12:12 Order name: Magnesium; Complete Time: 14:27 08/02 12:12 Order name: NT PRO-BNP; Complete Time: 14:27 08/02 12:12 Order name: PT-INR; Complete Time: 13:32 08/02 12:12 Order name: Troponin HS; Complete Time: 14:27 08/02 12:12 Order name: Lipase; Complete Time: 14:27 08/02 13:09 Order name: ABG: ROOM AIR; Complete Time: 14:27 08/02 13:53 Order name: Troponin High Sensitivity: 230 PM 08/02 12:12 Order name: XRAY Chest (1 view); Complete Time: 13:09 08/02 12:12 Order name: CT Head Brain wo Cont; Complete Time: 13:09 08/02 13:35 Order name: CT Aorta for Dissection; Complete Time: 14:27 08/02 12:12 Order name: EKG; Complete Time: 12:13 08/02 12:12 Order name: Cardiac monitoring; Complete Time: 13:15 08/02 12:12 Order name: EKG - Nurse/Tech; Complete Time: 13:02 08/02 12:12 Order name: IV Saline Lock; Complete Time: 13:02 08/02 12:12 Order name: Labs collected and sent; Complete Time: 13:02 08/02 12:12 Order name: O2 Per Protocol; Complete Time: 12:25 [facility] 08/02 12:12 Order name: O2 Sat Monitoring; Complete Time: 12:25 [facility] EC:37 Rate is 62 beats/min. Rhythm is regular. QRS [place] is Normal. NM interval is normal. QRS basilia interval is normal. QT interval is normal. No Q waves. T waves are Normal. No ST changes noted. Clinical impression: NSR w/ Non-specific ST/T Changes and No evidence of ischemia. Interpreted by me. Reviewed by me. Administered Medications: 14:20 Drug: MethylPrednisoLONE IVP 125 mg Route: IVP; Site: left antecubital; ap3 14:20 Drug: predniSONE PO 40 mg Route: PO; ap3 14:20 Drug: Albuterol Inhalation 5 mg Route: Inhalation; ap3 14:20 Drug: Ipratropium Inhalation Aerosol 0.5 mg Route: Inhalation; ap3 Disposition Summary: 08/02/23 14:28 Discharge Ordered Location: Home basilia Problem: new basilia Symptoms: have improved basilia Condition: Stable basilia Diagnosis - Dyspnea basilia - Mild persistent asthma basilia - Chest pain, unspecified basilia Followup: basilia - With: Private Physician - When: 2 - 3 days - Reason: Recheck today's complaints, Continuance of care, Re-evaluation by your physician Followup: basilia - With: - When: 2 - 3 days - Reason: Recheck today's complaints, Continuance of care, Re-evaluation by your physician Discharge Instructions: - Discharge Summary Sheet basilia - Asthma, Adult basilia - Nonspecific Chest Pain, Adult basilia - Chest Wall Pain basilia - Nonspecific Chest Pain, Pediatric basilia - Chest Wall Pain, [id number] basilia - Nonspecific Chest Pain, Adult, [id number] basilia - Asthma, Adult, [id number]-[id number] basilia - Aspirin and Your Heart [facility] Forms: - Medication Reconciliation Form [facility] - Thank You Letter [facility] - Antibiotic Education basilia - Prescription Opioid Use [facility] - Patient Portal Instructions [facility] - Leadership Thank You Letter [facility] Prescriptions: - albuterol sulfate 90 mcg/actuation Inhalation HFA Aerosol Inhaler - inhale 2 puff by INHALATION route every 4-6 hours until breathing returns to [facility] target peak flow/parameters; 1 unit; Refills: 0, Product Selection Permitted - Pepcid 20 mg Oral Tablet - take 1 tablet by ORAL route every 12 hours for 21 days; 42 tablet; Refills: 0, [facility] Product Selection Permitted - Zithromax Z-Delvin 250 mg Oral Tablet - take 1 tablet by ORAL route as directed for 5 days Day 1 - take two (2) tablets [facility] one time. Day 2, 3, 4 , 5 take one (1) tablet once daily.; 6 tablet; Refills: 0, Product Selection Permitted - Prednisone 20 mg Oral Tablet - take 2 tablets by ORAL route once daily for 5 days; 10 tablet; Refills: 0, [facility] Product Selection Permitted Signatures: Dispatcher [employer] Santos Dolan MD MD cha Baxter, Heather, RN RN hb Prokisch, Amanda, RN RN ap3
[2023-08-02 16:02] VITALS: BP 161/84; TEMP 98.2; O2SAT 100
--- NOTE | 2023-08-05 19:12 | EKG ---
Test Date: 2023-08-02 Test Time: 12:57:56 Inspector Multifocal Lens: MEASUREMENT RESULTS: Intervals: Rate: 62 GA: 156 QRSD: 88 QT: 428 QTc: 434 [place]: P: 32 GA: 156 QRS: 30 T: 37 INTERPRETIVE STATEMENTS: Normal sinus rhythm Normal ECG Compared to ECG 08/15/2021 09:24:22 No significant changes Electronically Signed On 08-05-23 19:07:53 CDT by Jones Carlton
== END 2023-08-02 15:44 | disposition home or self-care (01) ==
LOC: ER 11:58
DX: J45.30 Mild persistent asthma, uncomplicated (principal); R06.00 Dyspnea, unspecified; Z88.1 Allergy status to other antibiotic agents; Z91.010 Allergy to peanuts; Z91.012 Allergy to eggs; Z91.018 Allergy to other foods
CPT/HCPCS: 85025; 80048; 36415; 83735; 85610; 80076; 84484 ×2; 83690; 83880; 70450; 71275; 74175; 71045; 82805; 96374; 99285; Q9967; J7512; J7613; J7644; J2930; 93005

== ENCOUNTER 2023-10-21 08:10 | Emergency (ER) | payer OTHER ==
--- OUTSIDE RECORDS SUMMARY | 2023-10-21 08:13 | XMS REPORT | Continuity of Care Document ---
:1985 Author Organization [facility] t Address [address] [facility] [address] [place] [address] Care Team Providers Name Role Phone Unavailable [...] S ARS-CoV-2 RNA NOT (test code = 10419) DETECTED Negative results do not preclude SARS-C [...] is h igh. SOURCE (test code = 70479) NOT SPECIFIED Note: Methodology is Emmie Khadijah [...] are provided by method given in report:https:// www.[employer]/c linicians/kraig t-communications/ Alternatively, see downloadable PDF fact sheet at:https://www. [employer]/COVID -19-RT-PCR UNLE SS OTHERWISE INDICATED, ALL TESTING PERFORMED [facility], [facility]. [address] [place] [address] 4 SOCIAL MEDIA CAMPAIGN MANAGER: Angeli MCKENNA [id number] CAP ACCREDITATION N O. [id number] SARS-CoV-2 (COVID-19), RT-PCR/[id number] 18:36:06 Test Item Value Reference Interpretation Comments Range SARS-CoV-2 NEGATIVE SEE NOTE SARS-CoV-2 RNA NOT INTERPRETATION DETECTEDNegat félix (test code = 93482) results do not preclude SARS-C oV-2 infection [...] (test code = NASOPHARYNGEAL [place]: [place] [address]) Emmie Khadijah Walker l-Time RT-PCR. The exp ected result or [...] provided by met hod given in report:https:// www.[employer]/clinic ians/cl ient-communicat ions/ Alternatively, see downloadable PD F fact sheet at:https://www. [employer]/COVID-19-R T-PCR UNLESS OTHERWIS E INDICATED, ALL TESTING PERFORMED [facility], [facility]. [address] [place] [id number] [place] [address] DIRECTOR: SAMANTHA ZIMMERMAN M.D. CLIA NUMBER [id number] CAP ACCREDITATION N O. [id number]
[2023-10-21 08:47] LABS: Specific Gravity 1.015 (1.005-1.030)
[2023-10-21] MEDS ORDERED: DIAZEPAM 5 MG TABLET ONE (08:47)
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
[2023-10-21] MEDS ORDERED: KETOROLAC 30 MG/ML INJ ONE (09:48)
[2023-10-21 11:00] VITALS: BP 179/102; TEMP 97.2; O2SAT 100
== END 2023-10-21 09:37 | disposition home or self-care (01) ==
LOC: ER 08:10
DX: M54.12 Radiculopathy, cervical region (principal); V49.49XA Driver injured in collision with other motor vehicles in traffic accident, initial encounter; Z88.1 Allergy status to other antibiotic agents; Z91.010 Allergy to peanuts; Z91.012 Allergy to eggs
CPT/HCPCS: 70450; 72125; 81025; 96372; 99284

== ENCOUNTER → 2024-02-10 | Emergency (ER) | payer OTHER, SELFPAY ==
--- OUTSIDE RECORDS SUMMARY | 2024-02-10 10:56 | XMS REPORT | Continuity of Care Document ---
Author Name Unknown Address [address] [facility] [place] [address] [facility] Address [address] [facility] [address] [place] [address] Care Team Providers Care Capacity Planning Engineer Name Role Phone Unavailable Unavailable Unavailable Results Test Description Test Time Test Comments Results Result Co mments Source SARS-CoV-2 (COVID-19), RT-PCR/[id number] 18:36:06* Test Item Value Reference Range Interpretation Comments SARS-CoV-2 INTERPRETATION (test code = 21579) NEGATIVE SEE NOTE SARS-CoV-2 R NA NOT DETECTEDNegative results do not preclude SARS-CoV-2 infection and should notbe used as the sole basis for patient management decisions. Negativeresults must be combined with clinical observations, patient history,and epidemiological information. Optimum specimen types and timingfor peak viral levels during infections caused by SARS-CoV-2 have notbeen determined. Collection of multiple specimens or types ofspecimens may be necessary to detect virus. Improper specimencollection and handling, sequence variability under primers/probes,or organism present below the limit of detection may lead to falsenegative results. Positive and negative predictive values oftesting are highly dependent on prevalence. False negative testresults are more likely when prevalence is high. SOURCE (test code = 29023) NASOPHARYNGEAL Note: Methodolog y is Emmie Khadijah Real-Time RT-PCR. The expected result or reference range is NEGATIVE (Not Detected). For more information regarding COVID-19 testing to include clinicalinformation, methodology detail, intended use, FDA authorization andrecommended fact sheets for patients or healthcare providers, see [employer] Announcement: SARS-CoV-2 (COVID-19) by NAAT at URL below (note,fact sheets are provided by method given in report:[email or web address]/[email or web address]-communications/ Alternatively, see downloadable PDF fact sheet at:[email or web address] Léo/[email or web address]-PCR UNLESS OTHERWISE INDICATED, ALL TESTING PERFORMED [facility], [facility]. [address] [place] [id number] CAMP RECREATION SPECIALIST: SAMANTHA ZIMMERMAN M.D. CLIA NUMBER [id number] [facility] [place]. [id number]
--- NOTE | 2024-02-10 11:21 | RAD REPORT ---
EXAM DESCRIPTION: CT - CTHCSPWOC - 02/10/2024 11:10 am CLINICAL HISTORY: Trauma, head and neck injury. syncope, fall COMPARISON: Head C Spine Mpr Wo Con dated 10/21/2023 TECHNIQUE: Axial 5 mm thick images of the head were obtained. Axial 2 mm thick images of the cervical spine were obtained with sagittal and coronal reconstruction images generated and reviewed. All CT scans are performed using dose optimization technique as appropriate and may include automated exposure control or mA/KV adjustment according to patient size. FINDINGS: CT HEAD WITHOUT CONTRAST: No acute hemorrhage, hydrocephalus or extra-axial collection is identified.No areas of brain edema or midline shift. The paranasal sinuses and mastoids are clear.The calvarium is intact. CT CERVICAL SPINE WITHOUT CONTRAST: No fracture or subluxation.No prevertebral soft tissues swelling is identified. IMPRESSION: No acute intracranial or cervical spine findings.
--- NOTE | 2024-02-10 11:43 | RAD REPORT ---
EXAM DESCRIPTION: RAD - Chest Single View - 02/10/2024 11:35 am CLINICAL HISTORY: syncope, fall Chest pain. COMPARISON: Chest Single View dated 08/02/2023; Chest Single View dated 08/15/2021; Chest Single View dated 10/31/2020; Chest Pa And Lat (2 Views) dated 01/18/2020 FINDINGS: Portable technique limits examination quality. The lungs are grossly clear. The heart is normal in size. No displaced fractures. IMPRESSION: No acute intrathoracic process suspected.
[2024-02-10 11:47] LABS: Absolute Eosinophils 0.1 K/uL (0-0.5); Absolute Lymphocytes (CBC) 1.9 K/uL (0.7-4.9); Absolute Monocytes 0.4 K/uL (0.1-1.3); Absolute Neutrophil 4.1 K/uL (1.8-8.0); Basophils % 0.5 % (0-1.3); Eosinophils % 0.8 % (0-4.4); Hematocrit 30.4 % (36.0-45.0); Lymphocytes % 29.2 % (15.3-44.8); MCH 28.9 pg (27.0-35.0); MCV 87.6 fL (80-100); MPV 7.5 fL (7.6-11.3); Monocytes % 6.6 % (3.3-12.3); Neutrophils % 62.9 % (41.7-73.7); Platelets 383 thou/uL (152-406); RBC Red Blood Cell Count 3.47 M/uL (3.86-4.86); Red Cell Distribution Width 16.6 % (12.1-15.2)
[2024-02-10 11:50] LABS: PT Prothrombin Time 11.9 SECONDS (9.5-12.5); PTT, Activated Partial Thromb 22.6 SECONDS (24.3-36.9); Protime INR 1.08
[2024-02-10 11:52] LABS: Sqamous Epithelial <5 /HPF (None Seen); Urine Bacteria None Seen /HPF (<20); Urine Bilirubin NEGATIVE (Negative); Urine Blood 3+ (OVER) (Negative); Urine Clarity Extremely Turbid (Clear); Urine Color Light-Orange (Yellow); Urine Culture Reflex Order NOT NEEDED; Urine Glucose NEGATIVE (Negative); Urine Ketones NEGATIVE (Negative); Urine Microscopic Reflex YN ORDER UMIC; Urine Mucus 1+ /HPF (None Seen); Urine Nitrite NEGATIVE (Negative); Urine Protein 1+ (Negative); Urine RBC >50 /HPF (None Seen); Urine Urobilinogen Normal (Normal); Urine pH 7.5 (5.0-7.0)
[2024-02-10 12:03] LABS: Albumin 3.4 g/dL (3.4-5.0); Albumin/Globulin Ratio 0.9 (1.1-1.8); Anion Gap 8.7 mEq/L (5.0-15.0); Bilirubin Direct 0.1 mg/dL (0-0.2); Bilirubin Indirect, Calculated 0.2 mg/dL (0.2-0.8); Bilirubin Total 0.3 mg/dL (0.2-1.0); Globulin 3.9 g/dL (2.3-3.5); Potassium 3.7 mEq/L (3.5-5.1); Protein, Total 7.3 g/dL (6.4-8.2); Troponin High Sensitivity 3.1 pg/mL (<58.9)
--- NOTE | 2024-02-10 12:10 | EDPHYS ---
Physician Documentation [facility] Name: Kaylie Hargrove Age: 38 yrs Sex: Female : 1985 Arrival Date: 02/10/2024 Time: 10:53 Bed 16 Private MD: ED Physician Pepito De Luna HPI: 02/09 11:32 This 38 yrs old Female presents to ER via EMS with complaints of Syncope. ms3 11:32 38-year-old female past medical history of asthma, ovarian cyst presents to the [facility] emergency department via [facility] status post syncopal episode. Patient states she developed an abdominal cramp, nausea and then had a syncopal episode and falling. Patient is complaining of occipital head tenderness. Patient notes she is currently on her cycle and going through approximately 1 heavy tampon every 1 and half hours.. 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 - Social history:: Smoking status: Patient denies any tobacco usage or history of. ROS: 11:32 Constitutional: Negative for fever, and chills. Cardiovascular: Negative for chest ms3 pain, and palpitations. Respiratory: Negative for shortness of breath, cough, wheezing, and pleuritic chest pain, 11:32 Abdomen/GI: Positive for abdominal pain, nausea, 11:32 Neuro: Positive for syncope, Exam: 11:32 Constitutional: This is a well developed, well nourished patient who is awake, alert, ms3 and in no acute distress. Head/Face: Normocephalic, atraumatic. Chest/axilla: Normal chest wall appearance and motion. Nontender with no deformity. Cardiovascular: Regular rate and rhythm with a normal S1 and S2. No gallops, murmurs, or rubs. Normal PMI, no JVD. No pulse deficits. Respiratory: Lungs have equal breath sounds bilaterally, clear to auscultation and percussion. No rales, rhonchi or wheezes noted. No increased work of breathing, no retractions or nasal flaring. Abdomen/GI: Soft, non-tender, with normal bowel sounds. No distension or tympany. No guarding or rebound. No evidence of tenderness throughout. Skin: Warm, dry with normal turgor. Normal color with no rashes, no lesions, and no evidence of cellulitis. MS/ Extremity: Pulses equal, no cyanosis. Neurovascular intact. Full, normal range of motion. 11:51 ECG was reviewed by the Attending Physician. ms3 Vital Signs: 10:55 BP 182 / 88; Pulse 68; Resp 18 S; Temp 98(TE); Pulse Ox 100% on R/A; aa5 12:39 BP 147 / 92; Pulse 67; Resp 17; Temp 98.4(O); Pulse Ox 100% on R/A; me1 MDM: 10:55 Patient medically screened. ms3 11:32 Differential Diagnosis: cardiac arrhythmia, idiopathic syncope, vasovagal episode, ms3 Anemia. 12:10 Data reviewed: vital signs, nurses notes, lab test result(s), EKG, radiologic studies, ms3 and as a result, I will discharge patient. Independent interpretation of the following test(s) in the Emergency Department EKG: See my EKG interpretation above CT Scan: My interpretation is CT head without contrast images reviewed do not reveal intracranial hemorrhage. Historians other than the Patient: EMS: [facility]. Care significantly affected by the following chronic conditions: Asthma. Counseling: I had a detailed discussion with the patient and/or guardian regarding the historical points, exam findings, and any diagnostic results supporting the discharge/admit diagnosis, lab results, radiology results, the need for outpatient follow up, to return to the emergency department if symptoms worsen or persist or if there are any questions or concerns that arise at home. Special discussion: I discussed with the patient/guardian in detail that at this point there is no indication for admission to the hospital. It is understood, however, that if the symptoms persist or worsen the patient needs to return immediately for re-evaluation. ED course: Discussed labs, EKG, imaging with patient. Patient to follow-up with primary care physician 2 to 3 days. Patient understands and agrees with plan. All questions were answered. Return precautions discussed include worsening symptoms, or any other concerns. On reevaluation patient is improved, alert and orient x 4, no apparent distress, nontoxic-appearing, speaking full sentences. Patient states she feels she passed out secondary to abdominal cramping.. 02/09 10:56 Order name: Basic Metabolic Panel; Complete Time: 12:04 ms3 02/09 10:56 Order name: CBC with Diff; Complete Time: 11:56 ms3 02/09 10:56 Order name: Hepatic Function; Complete Time: 12:04 ms3 02/09 10:56 Order name: Magnesium; Complete Time: 12:04 ms3 02/09 10:56 Order name: Protime (+inr); Complete Time: 11:51 ms3 02/09 10:56 Order name: Ptt, Activated; Complete Time: 11:51 ms3 02/09 10:56 Order name: Troponin High Sensitivity; Complete Time: 12:04 ms3 02/09 10:56 Order name: Test, Urine; Complete Time: 11:56 ms3 02/09 10:56 Order name: Urinalysis w/ reflexes; Complete Time: 11:56 ms3 02/09 10:56 Order name: CT Head C Spine; Complete Time: 11:51 ms3 02/09 10:56 Order name: Chest Single View XRAY; Complete Time: 11:51 ms3 02/09 10:56 Order name: EKG; Complete Time: 10:58 ms3 02/09 10:56 Order name: Cardiac monitoring; Complete Time: 11:51 ms3 02/09 10:56 Order name: EKG - Nurse/Tech; Complete Time: 11:51 ms3 02/09 10:56 Order name: IV Saline Lock; Complete Time: 11:36 ms3 02/09 10:56 Order name: Labs collected and sent; Complete Time: 11:36 ms3 02/09 10:56 Order name: NPO; Complete Time: 11:03 ms3 02/09 10:56 Order name: O2 Per Protocol; Complete Time: 11:03 ms3 02/09 10:56 Order name: O2 Sat Monitoring; Complete Time: 11:03 ms3 EC:51 Rate is 65 beats/min. Rhythm is regular. QRS [place] is Normal. [place] interval is normal. QRS ms3 interval is normal. Clinical impression: Normal ECG. Interpreted by me. Reviewed by me. Administered Medications: No medications were administered Disposition Summary: 02/10/24 12:09 Discharge Ordered Notes: Location: Home ms3 Condition: Stable ms3 Diagnosis - Syncope ms3 - Anemia, unspecified ms3 Discharge Instructions: - Discharge Summary Sheet ms3 - Anemia ms3 - Syncope, [id number] ms3 Forms: - Medication Reconciliation Form ms3 - Thank You Letter ms3 - Antibiotic Education ms3 - Prescription Opioid Use ms3 - Patient Portal Instructions ms3 - Leadership Thank You Letter ms3 - Work release form me1 Signatures: Dispatcher [employer] EDKat Rubin, RN RN aa5 Pepito De Luna DO DO ms3 Krista Melendrez RN RN me1 Corrections: (The following items were deleted from the chart) 10:56 10:55 PMHx: Ovarian cyst; aa5 aa5
--- NOTE | 2024-02-10 12:10 | ER ---
Nurse's Notes [facility] Name: Kaylie Hargrove Age: 38 yrs Sex: Female : 1985 Arrival Date: 02/10/2024 Time: 10:53 Bed 16 Private MD: Diagnosis: Syncope;Anemia, unspecified Presentation: 02/09 10:55 Method Of Arrival: EMS: [facility] aa5 10:55 Coronavirus screen: At this time, the client does not indicate any symptoms associated aa5 with coronavirus-19. Ebola Screen: Patient denies travel to an Ebola-affected area in the 21 days before illness onset. Initial Sepsis Screen: Does the patient meet any 2 criteria? No. Patient's initial sepsis screen is negative. Does the patient have a suspected source of infection? No. Patient's initial sepsis screen is negative. Risk Assessment: Do you want to hurt yourself or someone else? Patient reports no desire to harm self or others. Onset of symptoms was January 2024. 10:55 Chief complaint: Patient states: "I was having really bad abdominal cramping and heavy me1 bleeding and I just remember getting really dizzy and cold". Pt had syncopal episode. 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 - Social history:: Smoking status: Patient denies any tobacco usage or history of. Screenin:00 [facility] ED Fall Risk Assessment (Adult) History of falling in the last 3 months, me1 including since admission Yes- single mechanical fall (1 pt) Confusion or Disorientation No (0 pts) Intoxicated or Sedated No (0 pts) Impaired Gait No (0 pts) Mobility Assist Device Used No (0 pt) Altered Elimination No (0 pt) Score/Fall Risk Level 0 - 2 = Low Risk Maintained a safe environment, Provided non-skid footwear, Hourly rounding (assess needs \\T\\ fall precautionary measures) done. Abuse screen: Denies threats or abuse. Nutritional screening: No deficits noted. Tuberculosis screening: No symptoms or risk factors identified. Assessment: 11:00 General: Appears comfortable, well groomed, well developed, well nourished, Behavior is me1 calm, cooperative, appropriate for age, Reports "I was having really bad abdominal cramping and heavy bleeding and I just remember getting really dizzy and cold". Pt had syncopal episode. Pain: Denies pain. Neuro: Level of Consciousness is awake, alert, obeys commands, Oriented to person, place, time, situation, Appropriate for age Abrasive Mixer are equal bilaterally Moves all extremities. Gait is steady, Speech is normal, Facial symmetry appears normal, Pupils are PERRLA, Intact Reports a syncopal episode. Cardiovascular: Patient's skin is warm and dry. Rhythm is sinus rhythm. Respiratory: Respiratory effort is even, unlabored, Respiratory pattern is regular, symmetrical. GI: No deficits noted. : No deficits noted. Derm: Skin is intact, is healthy with good turgor, Skin is pink, warm \\T\\ dry. Musculoskeletal: No deficits noted. Vital Signs: 10:55 BP 182 / 88; Pulse 68; Resp 18 S; Temp 98(TE); Pulse Ox 100% on R/A; aa5 12:39 BP 147 / 92; Pulse 67; Resp 17; Temp 98.4(O); Pulse Ox 100% on R/A; me1 ED Course: 10:55 Patient arrived in ED. aa5 10:55 Pepito De Luna DO is Attending Physician. ms3 10:55 Arm band placed on Patient placed in an exam room, on a stretcher. aa5 10:55 Client placed on continuous cardiac and pulse oximetry monitoring. NIBP monitoring me1 applied. monitoring engineer on. Pulse ox on. NIBP on. 11:00 Patient has correct armband on for positive identification. Bed in low position. Call me1 light in reach. Side rails up X 1. Provided Education on: POC. Verbalized understanding.. 11:00 No provider procedures requiring assistance completed. me1 11:02 Krista Melendrez, RN is Primary Nurse. me1 11:04 Triage completed. aa5 11:10 CT Head C Spine In Process Unspecified. EDMS 11:26 Test, Urine Sent. me1 11:26 Urinalysis w/ reflexes Sent. me1 11:35 Maintain EMS IV. Dressing intact. Good blood return noted. Site clean \\T\\ dry. Gauge \\T\\ me 1 site: 20g RAC. 11:35 Initial lab(s) drawn, by me, sent to lab. Urine collected: clean catch specimen, blood me1 tinged. 11:36 Basic Metabolic Panel Sent. me1 11:37 Chest Single View XRAY In Process Unspecified. EDMS 11:37 CBC with Diff Sent. me1 11:37 Hepatic Function Sent. me1 11:37 Magnesium Sent. me1 11:37 Protime (+inr) Sent. me1 11:37 Ptt, Activated Sent. me1 11:37 Troponin High Sensitivity Sent. me1 11:51 EKG done, by ED staff, reviewed by Pepito De Luna DO. me1 12:40 IV discontinued, intact, bleeding controlled, No redness/swelling at site. Pressure me1 dressing applied. Administered Medications: No medications were administered Medication: 11:00 VIS not applicable for this client. me1 Outcome: 12:09 Discharge ordered by MD. ms3 12:39 Discharged to home ambulatory, me1 12:39 Condition: stable 12:39 Discharge instructions given to patient, Instructed on discharge instructions, follow up and referral plans. Demonstrated understanding of instructions, follow-up care, 12:41 Patient left the ED. me1 Signatures: Dispatcher [employer] Kat Biswas, RN RN aa5 Pepito De Luna DO DO ms3 Krista Melendrez RN RN me1 Corrections: (The following items were deleted from the chart) 10:56 10:55 PMHx: Ovarian cyst; aa5 aa5 11:12 10:55 Acuity: BALTAZAR 3 aa5 aa5 12:25 10:55 Chief complaint: Patient states: "I was having really bad abdominal cramping and me1 heavy bleeding and I just remember getting really dizzy and cold". Pt had syncopal episode. aa5
[2024-02-10 13:44] VITALS: BP 147/92; TEMP 98.4; O2SAT 100
--- NOTE | 2024-02-11 17:05 | EKG ---
Test Date: 2024-02-10 Test Time: 10:46:22 Weld Engineer: MEASUREMENT RESULTS: Intervals: Rate: 65 IA: 152 QRSD: 88 QT: 410 QTc: 426 [place]: P: 18 IA: 152 QRS: 7 T: 29 INTERPRETIVE STATEMENTS: Normal sinus rhythm Normal ECG Compared to ECG 08/02/2023 12:57:56 No significant changes Electronically Signed On 02-11-24 17:01:31 CDT by Jones Carlton
== END ==
LOC: ER 10:53
DX: D64.9 Anemia, unspecified (principal); Z88.1 Allergy status to other antibiotic agents; Z91.010 Allergy to peanuts; Z91.012 Allergy to eggs; Z91.018 Allergy to other foods
CPT/HCPCS: 36415; 70450; 71045; 72125; 80048; 80076; 81001; 81025; 83735; 84484; 85025; 85610; 85730; 93005; 99284

== ENCOUNTER 2024-03-03 08:03 | Emergency (ER) | payer OTHER, SELFPAY ==
--- OUTSIDE RECORDS SUMMARY | 2024-03-03 08:07 | XMS REPORT | Continuity of Care Document ---
Author Name Unknown Address [address] [facility] [place] [address] [facility] thconnect Address [address] [facility] [address] [place] [address] Care Team Providers Care Psychiatry Resident Name Role Phone Pcp, Patient Does Not Have A Primary Care Physic fred NÉSTOR ORR Attending Clinician Unavailable Campaigns, Generic Provider Attending Clinician Unavailable BUTCH IBRAHIM Attending Clinician Butch Da Silva MD Attending Clinician + Payers Payer Name Policy Type Policy Number Effective Date Expirati on Date Source [facility] STEPHANIE SANTIAGO COPAY FOCUS 9 [id number] 2023 00:00:00 Allergies, Adverse Reactions, Alerts Allergy Name Allergy Type Status Severity Reaction(s) Onset Date Inactive Date Treating Clinician Comments Source Amoxicil francia Propensi ty to adverse reaction s Active Hives 12-27 00:00: 00 [facility] AMOXICIL FRANCIA DRUG INGREDI Active Hives 12-27 00:00: 00 [facility] Social History Social Habit Start Date Stop Date Quantity Comments Source Sexual orientation [facility] Sex Assigned At 1985 00:00:00 1985 00:00:00 [facility] Smoking Status Start Date Stop Date Source Tobacco smoking consumption unknown [facility] Medications Ordered Medication Name Filled Medication Name Start Date Stop Date Current Medication? Ordering Clinician Indication Dosage Frequency Signature (SIG) Comments Components Source traMADOL (ULTRAM) 50 mg tablet 08-11 00:00: 00 Yes 50mg Take 1 tablet by mouth every 6 (six) hours as needed for Pain (scale 4-6). [facility] albuterol (PROAIR) 90 mcg/actuati on inhaler 12-27 00:00: 00 Yes 2{puff} Inhale 2 Puffs every 6 (six) hours as needed for Wheezing or Shortness of Breath. [facility] Vital Signs Vital Name Observation Time Observation Value Comments S amaya Systolic blood pressure 2024-02-17 23:12:47 118 mm[Hg] [facility] Diastolic blood pressure 2024-02-17 23:12:47 80 mm[Hg] [facility] Heart rate 2024-02-17 23:12:47 68 /min [facility] Body temperature 2024-02-17 23:12:47 36.78 [facility] Respiratory rate 2024-02-17 23:12:47 16 /min [facility] Oxygen saturation in Arterial blood by Pulse oximetry 2024-02-17 23:12:47 100 /min [facility] Body height 2024-02-17 18:58:00 157.5 cm [facility] Body weight 2024-02-17 18:58:00 88.905 kg [facility] BMI 2024-02-17 18:58:00 35.85 kg/m2 [facility] Procedures Procedure Date / Time Performed Performing Clinicia n Source POCT TEST 2024-02-17 20:36:00 Butch Aldridge [facility] TROPONIN I 2024-02-17 20:35:00 Butch Ibrahim [facility] COMP. METABOLIC PANEL (38433) 2024-02-17 20:35:00 Butch Ibrahim [facility] CBC WITH DIFF 2024-02-17 20:35:00 uBtch Ibrahim [facility] N-TERMINAL PRO-BNP 2024-02-17 20:35:00 Cinthia nugent Butch Yvette [facility] Encounters Start Date/Time End Date/Time Encounter Type Admission Type Attending Clinicians Care Facility Care Department Encounter ID Source 2024-03-18 14:15:00 2024-03-18 14:15:00 Outpatient NÉSTOR ORR [id number] Radha Huitron 2024-02-26 00:00:00 2024-02-26 00:00:00 Letter (Out) Campaigns, Generic Provider [facility] [id number] [facility] 2024-02-17 13:58:00 2024-02-17 18:16:00 Emergency X BUTCH IBRAHIM [facility] ERT [id number] [facility] 2024-02-17 13:58:00 2024-02-17 18:16:00 Emergency Butch Ibrahim [facility] [id number] [facility] Results Test Description Test Time Test Comments Results Result Co mments Source [facility] RT-PCR/[id number] 13:40:45* Test Item Value Reference Range Interpretation Comments SARS-CoV-2 INTERPRETATION (test code = 46585) NEGATIVE SEE NOTE SARS-CoV-2 R NA NOT [...] prevalence is high. SOURCE (test code = 17841) NOT SPECIFIED Note: Methodolog y is Emmie Khadijah Real-Time RT-PCR. The expected result or reference range is NEGATIVE (Not Detected). For more information regarding COVID-19 testing to include clinicalinformation, methodology detail, intended use, FDA authorization andrecommended fact sheets for patients or healthcare providers, see [employer] Announcement: SARS-CoV-2 (COVID-19) by NAAT at URL below (note,fact sheets are provided by method given in report:[email or web address]/clinicians/clie nt-communications/ Alternatively, see downloadable PDF fact sheet at:https://www.[email or web address]-SZ-PCR UNLESS OTHERWISE INDICATED, ALL TESTING PERFORMED [facility] [place], [facility]. [address] [place] [address] DIALYSIS EQUIPMENT TECHNICIAN: SAMANTHA ZIMMERMAN M.D. [place] NUMBER [id number] [facility] [place]. [id number] SARS-CoV-2 (COVID-19), RT-PCR/[id number] 18:36:06* Test Item Value Reference Range Interpretation Comments SARS-CoV-2 INTERPRETATION (test code = 10162) NEGATIVE SEE NOTE SARS-CoV-2 R NA NOT [...] prevalence is high. SOURCE (test code = 47475) NASOPHARYNGEAL Note: Methodolog y is Emmie Khadijah Real-Time RT-PCR. The expected result or reference range is NEGATIVE (Not Detected). For more information regarding COVID-19 testing to include clinicalinformation, methodology detail, intended use, FDA authorization andrecommended fact sheets for patients or healthcare providers, see [facility] Announcement: SARS-CoV-2 (COVID-19) by NAAT at URL below (note,fact sheets are provided by method given in report:[email or web address]/clinicians/cl ient-communications/ Alternatively, see downloadable PDF fact sheet at:https://www.[employer]/PZELG-24-BO-PCR UNLESS OTHERWISE INDICATED, ALL TESTING PERFORMED [facility] [place] [address] [place] [id number] DIALYSIS EQUIPMENT TECHNICIAN: SAMANTHA ZIMMERMAN M.D. CLIA NUMBER [id number] [facility] [place]. [id number] Notes Date/Time Note Provider Source 2024-02-17 18:15:06 [id number] Idfl9vKzR5m3i3G wctCZ/2RLtOfWfnGTvVU/KWdQl+sZ3518-0 02-16T18:15:06 Pt given printed and verbal discharge instructions regarding syncope, anemia, encouraged hydration,NO Prescriptions providedDiscussed ibuprofen and to take with food to avoid GI distress.Pt verbalized understanding of instructions, pt awake alert oriented, resp reg unlabored, skin w/d, color appropriate for race, moves all ext well,pt encouraged to follow up with pcp and or GynecologyAdvised to seek medical attention for new/prolonged/worsening of symptoms,No adverse reaction to meds given in ER noted upon dischargePIV d'cd, dressing to site, catheter in tact.Awake, alert oriented, resp reg unlabored, skin w/d, pt leaving amb with steady gait, in no apparent distress, 23199-9Blvghufem department OpxkEE0619-42-43J70:16:11[facility] [id number]. [id number] for patient mbpx91346-3RmivDQISRESNIYTNytllwnhc C-CDA narrative [address] Eh[id number] 2YLXIHXDYDTKQGXBVIBTOHP0811-87-97H5 8:16:111.2.840.862026.1.72.3.15|1.2 .840.361038.1.13.104.2.7.2.727879_2 [id number] [facility] 2024-02-17 13:57:19 xcMgiT3WG9GYo/sYtiGz GL+1ZFhl8KmLZ5O gq3mVEbYYxlMOUup0fg//EYN28G7n0391-1 3:57:19 Patient reports that she had an episode of syncope last week and was evaluated at an outside ER. States that she was discharged with no acute findings. Today patient felt she might have the same type of symptoms. 96200-7Xycrwmhip department Triage voswFG4257-13-99J76:58:00Emerdrew [facility] hospitalcy department Triage noteTXT1.2.840.183105.1.13.104.2.7. [id number] for patient fjab31455-6Wddiyhzwa department NoteLNNARRATIVEFormatted C-CDA narrative [id number] M Hayes RNUT01 Stuart StreetIx[id number] 2FNWJHGFIANEKAOUSPERPDZ2597-60-11O5 3:58:001.2.840.760725.1.72.3.15|1.2 .840.958550.1.13.104.2.7.2.727879_2 [id number] Grace Pearce RN [facility]"
[2024-03-03 08:52] LABS: SARS-CoV-2 Antigen CONTROL BLUE LINE VIS/BG OK; SARS-CoV-2 Antigen Rapid Res Negative (Negative)
--- NOTE | 2024-03-03 10:20 | EDPHYS ---
Physician Documentation [facility] Name: Kaylie Hargrove Age: 38 yrs Sex: Female : 1985 Arrival Date: 03/03/2024 Time: 08:03 Bed DX5 Private MD: ED Physician Asher Smith HPI: 03/03 09:23 This 38 yrs old Female presents to ER via Ambulatory with complaints of rn possible covid. 09:23 The patient or guardian reports cough, flu symptoms, low-grade fever, myalgias, no rn appetite. Onset: The symptoms/episode began/occurred 4 day(s) ago. Severity of symptoms: At their worst the symptoms were mild, in the emergency department the symptoms are unchanged. Modifying factors: The symptoms are alleviated by nothing, the symptoms are aggravated by nothing. Associated signs and symptoms: Pertinent positives: fever, rhinorrhea, sore throat, Pertinent negatives: chest pain. The patient has not experienced similar symptoms in the past. Patient reports sick for a few days. Reports cough/congestion/headache/myalgias/decreased appetite. Son got sick after her and she took him to the doctor and tested positive for COVID. Patient states her work will not let her go back, she gets tested for COVID. States overall starting to feel better.. 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 - Infectious Disease History:: Denies. - Social history:: Smoking status: Patient denies any tobacco usage or history of. - Family history:: not pertinent. - Hospitalizations: : No recent hospitalization is reported. ROS: 09:23 Constitutional: Positive for fever and chills Eyes: Negative for injury, pain, redness, rn and discharge, ENT: Positive for runny nose and congestion Cardiovascular: Negative for chest pain, palpitations, and edema, Respiratory: Negative for shortness of breath, cough, wheezing, and pleuritic chest pain, Abdomen/GI: Negative for abdominal pain, nausea, vomiting, diarrhea, and constipation, MS/Extremity: Negative for injury and deformity, Skin: Negative for injury, rash, and discoloration, Neuro: Positive for headache and generalized malaise Exam: 09:23 Constitutional: This is a well developed, well nourished patient who is awake, alert, rn and in no acute distress. Head/Face: Normocephalic, atraumatic. ENT: No stridor Cardiovascular: Regular rate and rhythm. No pulse deficits. Respiratory: No increased work of breathing, no retractions or nasal flaring. Abdomen/GI: Soft, non-tender MS/ Extremity: Pulses equal, no cyanosis. Neuro: Awake and alert, GCS 15 Vital Signs: 08:25 BP 165 / 90; Pulse 65; Resp 15; Temp 98.3; Pulse Ox 100% ; Weight 86.18 kg; Height 5 jl7 ft. 2 in. ; Pain 0/10; 08:25 Body Mass Index 34.75 (86.18 kg, 157.48 cm) jl7 08:25 Pain Scale: Adult jl7 MDM: 08:06 Patient medically screened. rn 10:19 Differential Diagnosis: Influenza Upper Respiratory Infection Pharyngitis Viral rn Syndrome. Data reviewed: vital signs, nurses notes, lab test result(s), and as a result, I will discharge patient. Counseling: I had a detailed discussion with the patient and/or guardian regarding the historical points, exam findings, and any diagnostic results supporting the discharge/admit diagnosis, lab results, the need for outpatient follow up, to return to the emergency department if symptoms worsen or persist or if there are any questions or concerns that arise at home. Special discussion: I discussed with the patient/guardian in detail that at this point there is no indication for admission to the hospital. It is understood, however, that if the symptoms persist or worsen the patient needs to return immediately for re-evaluation. 03/03 08:13 Order name: Strep rn 03/03 08:13 Order name: SARS RAPID; Complete Time: 10:19 rn 03/03 08:13 Order name: Flu; Complete Time: 10: rn 03/03 08:44 Order name: Throat Culture EDMS Administered Medications: No medications were administered Disposition Summary: 03/03/24 10:20 Discharge Ordered Notes: Location: Home rn Problem: new rn Symptoms: have improved rn Condition: Stable rn Diagnosis - Viral infection, unspecified rn Followup: rn - With: Private Physician - When: As needed - Reason: Recheck today's complaints, Re-evaluation by your physician Discharge Instructions: - Discharge Summary Sheet rn - Viral Illness, Adult rn Forms: - Work release form iw - Medication Reconciliation Form rn - Thank You Letter rn - 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
--- NOTE | 2024-03-03 10:20 | ER ---
Nurse's Notes [facility] Name: Kaylie Hargrove Age: 38 yrs Sex: Female : 1985 Arrival Date: 03/03/2024 Time: 08:03 Bed DX5 Private MD: Diagnosis: Viral infection, unspecified Presentation: 03/03 08:25 Chief complaint: Patient states: Fever, sore throat, flu/covid symptoms. Son tested jl7 positive yesterday for covid. Coronavirus screen: Client presents with at least one sign or symptom that may indicate coronavirus-19. Ebola Screen: No symptoms or risks identified at this time. Initial Sepsis Screen: Does the patient meet any 2 criteria? No. Patient's initial sepsis screen is negative. Does the patient have a suspected source of infection? No. Patient's initial sepsis screen is negative. Risk Assessment: Do you want to hurt yourself or someone else? Patient reports no desire to harm self or others. Onset of symptoms is unknown. 08:25 Method Of Arrival: Ambulatory [facility] 08:25 Acuity: BALTAZAR 4 jl7 Triage Assessment: 08:26 General: Appears in no apparent distress. uncomfortable, Behavior is calm, cooperative, jl7 appropriate for age. Pain: Denies pain. 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 - Infectious Disease History:: Denies. - Social history:: Smoking status: Patient denies any tobacco usage or history of. - Family history:: not pertinent. - Hospitalizations: : No recent hospitalization is reported. Assessment: 09:54 General: Appears in no apparent distress. Behavior is calm, cooperative. Neuro: Level iw of Consciousness is awake, alert, obeys commands, Oriented to person, place, time, situation, Moves all extremities. Full function. Vital Signs: 08:25 BP 165 / 90; Pulse 65; Resp 15; Temp 98.3; Pulse Ox 100% ; Weight 86.18 kg; Height 5 7 ft. 2 in. ; Pain 0/10; 08:25 Body Mass Index 34.75 (86.18 kg, 157.48 cm) jl7 08:25 Pain Scale: Adult [facility] ED Course: 08:05 Patient arrived in ED. rg4 08:06 sAher Smith MD is Attending Physician. rn 08:26 Triage completed. jl7 08:26 Arm band placed on right wrist. jl7 09:54 Virgen Pabon, RN is Primary Nurse. iw Administered Medications: No medications were administered Outcome: 10:20 Discharge ordered by . rn 10:28 Patient left the ED. iw Signatures: Virgen Pabon RN RN iw Nieto, Roman, MD MD rn Garcia, Rubi 4 Ajith Tadeo RN RN [facility]
[2024-03-03 13:13] VITALS: BP 165/90; TEMP 98.3; O2SAT 100
== END 2024-03-03 10:28 | disposition home or self-care (01) ==
LOC: ER 08:03
DX: B34.9 Viral infection, unspecified (principal); Z11.52 Encounter for screening for COVID-19
CPT/HCPCS: 36415; 87070; 87081; 87804; 87811; 99281

== ENCOUNTER 2024-07-22 20:34 | Emergency (ER) | payer OTHER ==
--- OUTSIDE RECORDS SUMMARY | 2024-07-22 20:37 | XMS REPORT | Continuity of Care Document ---
Author Name Unknown Address [address] 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 [employer] Name Role Phone Pcp, Patient Does Not Have A Primary Care Physic fred NÉSTOR ORR Attending Clinician Unavailable Campaigns, Generic Provider Attending Clinician Unavailable BUTCH IBRAHIM Attending Clinician Butch Da Silva MD Attending Clinician + Payers Payer Name Policy Type Policy Number Effective Date Expirati on Date Source [facility] STEPHANIE SANTIAGO COPAY FOCUS 9 [id number] 2023 00:00:00 Allergies, Adverse Reactions, Alerts Allergy Name Allergy Type Status Severity Reaction(s) Onset Date Inactive Date Treating Clinician Comments Source Amoxicil francia Propensi ty to adverse reaction s Active Hives 12-27 00:00: 00 [facility] AMOXICIL FRANCIA DRUG INGREDI Active Hives 12-27 00:00: 00 [facility] Social History Social Habit Start Date Stop Date Quantity Comments Source Sexual orientation U [facility] Sex Assigned At 1985 00:00:00 1985 00:00:00 [facility] Smoking Status Start Date Stop Date Source Tobacco smoking consumption unknown [facility] Medications Ordered Medication Name Filled Medication Name Start Date Stop Date Current Medication? Ordering Clinician Indication Dosage Frequency Signature (SIG) Comments Components Source traMADOL (ULTRAM) 50 mg tablet 08-11 00:00: 00 Yes 50mg Take 1 tablet by mouth every 6 (six) hours as needed for Pain (scale 4-6). [facility] albuterol (PROAIR) 90 mcg/actuati on inhaler 12-27 00:00: 00 Yes 2{puff} Inhale 2 Puffs every 6 (six) hours as needed for Wheezing or Shortness of Breath. [facility] Vital Signs Vital Name Observation Time Observation Value Comments S amaya Systolic blood pressure 2024-02-17 23:12:47 118 mm[Hg] [facility] Diastolic blood pressure 2024-02-17 23:12:47 80 mm[Hg] [facility] Heart rate 2024-02-17 23:12:47 68 /min [facility] Body temperature 2024-02-17 23:12:47 36.78 [place] [facility] Respiratory rate 2024-02-17 23:12:47 16 /min [facility] Oxygen saturation in Arterial blood by Pulse oximetry 2024-02-17 23:12:47 100 /min [facility] Body height 2024-02-17 18:58:00 [facility]5 [facility] Body weight 2024-02-17 18:58:00 88.905 [facility] BMI 2024-02-17 18:58:00 35.85 kg/m2 [facility] Procedures Procedure Date / Time Performed Performing Clinicia n Source POCT TEST 2024-02-17 20:36:00 Butch Aldridge [facility] TROPONIN I 2024-02-17 20:35:00 Butch Ibrahim [facility] COMP. METABOLIC PANEL (60122) 2024-02-17 20:35:00 Butch Ibrahim [facility] CBC WITH DIFF 2024-02-17 20:35:00 Butch Ibrahim [facility] N-TERMINAL PRO-BNP 2024-02-17 20:35:00 Cinthia nugent Butch Yvette [facility] Encounters Start Date/Time End Date/Time Encounter Type Admission Type Attending Clinicians Care Facility Care Department Encounter ID Source 2024-03-18 14:15:00 2024-03-18 14:15:00 Outpatient NÉSTOR ORR [id number] Radha Huitron 2024-02-26 00:00:00 2024-02-26 00:00:00 Letter (Out) Campaigns, Generic Provider [facility] [id number] [facility] 2024-02-17 13:58:00 2024-02-17 18:16:00 Emergency X BUTCH IBRAHIM [facility] ERT [id number] [facility] 2024-02-17 13:58:00 2024-02-17 18:16:00 Emergency Butch Ibrahim [facility] [id number] [facility] Results Test Description Test Time Test Comments Results Result Co mments Source [facility] ([facility]), RT-PCR/[id number] 13:40:45* Test Item Value Reference Range Interpretation Comments SARS-CoV-2 INTERPRETATION (test code = 70223) NEGATIVE SEE NOTE SARS-CoV-2 R NA NOT [...] prevalence is high. SOURCE (test code = 73457) NOT SPECIFIED Note: Methodolog y is Emmie Khadijah Real-Time RT-PCR. The expected result or reference range is NEGATIVE (Not Detected). For more information regarding COVID-19 testing to include clinicalinformation, methodology detail, intended use, FDA authorization andrecommended fact sheets for patients or healthcare providers, see BrandFiesta Announcement: SARS-CoV-2 (COVID-19) by NAAT at URL below (note,fact sheets are provided by method given in report:[email or web address]/clie [email or web address]/ Alternatively, see downloadable PDF fact sheet at:[email or web address].Kodak [email or web address]-PCR UNLESS OTHERWISE INDICATED, ALL TESTING PERFORMED [facility]IC[facility]acy[facility] PATH[facility] [place], [facility]. [address] [place] [address] COMMERCIAL ACCOUNT OFFICER: SAMANTHA ZIMMERMAN M.D. [place] NUMBER [id number] [facility] [place]. [id number] SARS-CoV-2 (COVID-19), RT-PCR/[id number] 18:36:06* Test Item Value Reference Range Interpretation Comments SARS-CoV-2 INTERPRETATION (test code = 34614) NEGATIVE SEE NOTE SARS-CoV-2 R NA NOT [...] prevalence is high. SOURCE (test code = 86092) NASOPHARYNGEAL Note: Methodolog y is Emmie Khadijah Real-Time RT-PCR. The expected result or reference range is NEGATIVE (Not Detected). For more information regarding COVID-19 testing to include clinicalinformation, methodology detail, intended use, FDA authorization andrecommended fact sheets for patients or healthcare providers, see BrandFiesta Announcement: SARS-CoV-2 (COVID-19) by NAAT at URL below (note,fact sheets are provided by method given in report:[email or web address]/clinicians/cl ient-communications/ Alternatively, see downloadable PDF fact sheet at:https://www.Quaero/[email or web address]-QP-PCR UNLESS OTHERWISE INDICATED, ALL TESTING PERFORMED [facility] [address] [place] [id number] COMMERCIAL ACCOUNT OFFICER: SAMANTHA ZIMMERMAN M.D. CLIA NUMBER [id number] [facility] [place]. [id number] Notes Date/Time Note Provider Source 2024-02-17 18:15:06 Pt given printed and verbal discharge instructions regarding syncope, anemia, encouraged hydration, NO Prescriptions provided Discussed ibuprofen and to take with food to avoid GI distress. Pt verbalized understanding of instructions, pt awake alert oriented, resp reg unlabored, skin w/d, color appropriate for race, moves all ext well,pt encouraged to follow up with pcp and or Gynecology Advised to seek medical attention for new/prolonged/worsening of symptoms, No adverse reaction to meds given in ER noted upon discharge PIV d'cd, dressing to site, catheter in tact. Awake, alert oriented, resp reg unlabored, skin w/d, pt leaving amb with steady gait, in no apparent distress, [facility] 2024-02-17 13:57:19 Patient reports that she had an episode of syncope last week and was evaluated at an outside ER. States that she was discharged with no acute findings. Today patient felt she might have the same type of symptoms. Grace Pearce RN [facility]
[2024-07-22] MEDS ORDERED: TDAP (DIPHTH,PERTUSS(ACELL),TET VAC) 0.5 ML VIAL IMVAC ONE (20:54)
--- NOTE | 2024-07-22 21:20 | RAD REPORT ---
EXAM DESCRIPTION: RAD - Hand Right 3 View - 07/22/2024 9:12 pm CLINICAL HISTORY: Right hand pain status post injury FINDINGS: No fracture or dislocation is seen.
--- NOTE | 2024-07-22 21:23 | ER ---
Nurse's Notes [facility] Name: Kaylie Hargrove Age: 38 yrs Sex: Female : 1985 Arrival Date: 07/22/2024 Time: 20:34 Bed 13 Private MD: Diagnosis: Contusion of right index finger without damage to nail;Laceration without foreign body of right index finger without damage to nail-skin tear Presentation: 07/22 20:43 Chief complaint: Patient states: Smashed right index between shelves today. Coronavirus cm10 screen: Client denies travel out of the [place] in the last 14 days. Ebola Screen: Patient denies travel to an Ebola-affected area in the 21 days before illness onset. No symptoms or risks identified at this time. Complicating Factors: There are no complicating factors for this patient. Initial Sepsis Screen: Does the patient meet any 2 criteria? No. Patient's initial sepsis screen is negative. Does the patient have a suspected source of infection? No. Patient's initial sepsis screen is negative. Risk Assessment: Do you want to hurt yourself or someone else? Patient reports no desire to harm self or others. Onset of symptoms was July 22, 2024. 20:43 Method Of Arrival: Ambulatory cm10 20:43 Acuity: BALTAZAR 4 cm10 Triage Assessment: 20:45 General: Appears in no apparent distress. comfortable, Behavior is calm, cooperative. cm10 Neuro: No deficits noted. Level of Consciousness is awake, alert, obeys commands, Oriented to person, place, time, situation, Appropriate for age. Respiratory: No deficits noted. Airway is patent Respiratory effort is even, unlabored, Respiratory pattern is regular, symmetrical. 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 - Infectious Disease History:: Denies. - Social history:: Smoking status: Patient denies any tobacco usage or history of. Screenin:30 [facility] ED Fall Risk Assessment (Adult) History of falling in the last 3 months, rg5 including since admission No falls in past 3 months (0 pts) Confusion or Disorientation No (0 pts) Intoxicated or Sedated No (0 pts) Impaired Gait No (0 pts) Mobility Assist Device Used No (0 pt) Altered Elimination No (0 pt) Score/Fall Risk Level 0 - 2 = Low Risk Oriented to surroundings, Maintained a safe environment, Educated pt \T\ family on fall prevention, incl call for assistance when getting out of bed, Hourly rounding (assess needs \T\ fall precautionary measures) done. Abuse screen: Denies threats or abuse. Nutritional screening: No deficits noted. Tuberculosis screening: No symptoms or risk factors identified. Assessment: 20:30 General: Appears in no apparent distress. comfortable, Behavior is calm, cooperative, rg5 appropriate for age. Pain: Complains of pain in dorsal aspect of distal phalanx of right index finger, dorsal aspect of middle phalanx of right index finger and right index fingernail Pain currently is 8 out of 10 on a pain scale. Quality of pain is described as aching, throbbing. 20:30 Neuro: Level of Consciousness is awake, alert, obeys commands, Oriented to person, rg5 place, time. Cardiovascular: Denies chest pain, Capillary refill < 3 seconds Patient's skin is warm and dry. Respiratory: Airway is patent Trachea midline Respiratory effort is even, unlabored, Respiratory pattern is regular, symmetrical. GI: Abdomen is round non-distended. : No signs and/or symptoms were reported regarding the genitourinary system. EENT: No signs and/or symptoms were reported regarding the EENT system. Derm: Skin is intact, Skin is dry, Skin is normal. Musculoskeletal: Range of motion: intact in all extremities. 20:30 Injury Description: Laceration is clean. rg5 21:15 Reassessment: No changes from previously documented assessment. Patient and/or family rg5 updated on plan of care and expected duration. Pain level reassessed. Vital Signs: 20:30 BP 168 / 92; Pulse 85; Resp 17; Temp 97.9; Pulse Ox 100% on R/A; Pain 8/10; rg5 20:43 BP 177 / 103; Pulse 83; Resp 18; Temp 97.3; Pulse Ox 100% on R/A; Weight 88.45 kg; cm10 Height 5 ft. 2 in. ; Pain 9/10; 20:43 Body Mass Index 35.67 (88.45 kg, 157.48 cm) cm10 20:30 Pain Scale: Adult rg5 20:43 Pain Scale: Adult cm10 ED Course: 20:30 Patient has correct armband on for positive identification. Bed in low position. Call rg5 light in reach. 20:30 Provided Education on: post er care. rg5 20:36 Patient arrived in ED. jj6 20:36 Dasia Logan FNP-C is PSYCHIATRICP. kb 20:36 Santos Stokes MD is Attending Physician. kb 20:44 Triage completed. cm10 20:45 Arm band placed on Patient placed in an exam room, on a stretcher. cm10 20:49 Khris Casas, RN is Primary Nurse. rg5 21:14 Hand Right 3 View XRAY In Process Unspecified. EDMS 21:22 Awaiting radiology results. rg5 21:39 No provider procedures requiring assistance completed. IV discontinued. rg5 Administered Medications: 20:56 Drug: Boostrix Tdap IM 0.5 ml IM once; as a single dose Route: IM; Site: right deltoid; rg5 21:41 Follow up: Response: No adverse reaction rg5 Medication: 20:30 VIS not applicable for this client. rg5 Outcome: 21:22 Discharge ordered by MD. kb 21:39 Discharged to home ambulatory, rg5 21:39 Condition: stable 21:39 Discharge instructions given to patient, Instructed on discharge instructions, Demonstrated understanding of instructions, 21:42 Patient left the ED. rg5 Signatures: Dispatcher [employer] EDMS Dasia Logan FNP-C FNP-Danyell Plata jj6 Carola Sanchez RN RN cm10 Khris Casas, RN RN rg5
--- NOTE | 2024-07-22 21:23 | EDPHYS ---
Physician Documentation [facility] Name: Kaylie Hargrove Age: 38 yrs Sex: Female : 1985 Arrival Date: 07/22/2024 Time: 20:34 Bed 13 Private MD: ED Physician Santos Stokes HPI: 07/22 20:40 This 38 yrs old Female presents to ER via Unassigned with complaints of kb Laceration To Hand. 20:40 Pt is a 38 year old female who presents for right index finger pain and laceration kb after getting finger smashed between counter and "Uboat." Reports difficulty moving finger. 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 - Infectious Disease History:: Denies. - Social history:: Smoking status: Patient denies any tobacco usage or history of. ROS: 20:40 Constitutional: As per HPI kb Exam: 20:40 Constitutional: This is a well developed, well nourished patient who is awake, alert, kb and in no acute distress. Head/Face: Normocephalic, atraumatic. ENT: Moist Mucous membranes Cardiovascular: Regular rate Respiratory: Respirations even and unlabored. No increased work of breathing. Talking in full sentences Neuro: Awake and alert, GCS 15, oriented to person, place, time, and situation. Moves all extremities. Normal gait. 20:40 Musculoskeletal/extremity: Extremities: grossly normal except: noted in the dorsal aspect of middle phalanx of right index finger: decreased ROM, pain, tenderness, skin tear, ROM: intact in all extremities, Circulation is intact in all extremities. Sensation intact. Vital Signs: 20:30 BP 168 / 92; Pulse 85; Resp 17; Temp 97.9; Pulse Ox 100% on R/A; Pain 8/10; rg5 20:43 BP 177 / 103; Pulse 83; Resp 18; Temp 97.3; Pulse Ox 100% on R/A; Weight 88.45 kg; cm10 Height 5 ft. 2 in. ; Pain 9/10; 20:43 Body Mass Index 35.67 (88.45 kg, 157.48 cm) cm10 20:30 Pain Scale: Adult rg5 20:43 Pain Scale: Adult cm10 MDM: 20:36 Patient medically screened. kb 20:41 Differential diagnosis: superficial laceration, tendon injury, vascular injury, kb fracture, contusion. Data reviewed: vital signs, nurses notes. ED course: Pt placed skin back to original position prior to arrival. Well approximated. No repair needed. 21:21 Counseling: I had a detailed discussion with the patient and/or guardian regarding the kb historical points, exam findings, and any diagnostic results supporting the discharge/admit diagnosis, radiology results, the need for outpatient follow up, a family practitioner, to return to the emergency department if symptoms worsen or persist or if there are any questions or concerns that arise at home. 07/22 20:40 Order name: Hand Right 3 View XRAY; Complete Time: 21:21 kb Administered Medications: 20:56 Drug: Boostrix Tdap IM 0.5 ml IM once; as a single dose Route: IM; Site: right deltoid; rg5 21:41 Follow up: Response: No adverse reaction rg5 Disposition: 07/23 07:12 Co-signature as Attending Physician, Santos Stokes MD I agree with the assessment and basilia plan of care. Disposition Summary: 07/22/24 21:22 Discharge Ordered Notes: Location: Home kb Condition: Stable kb Diagnosis - Contusion of right index finger without damage to nail kb - Laceration without foreign body of right index finger without damage to nail - skin kb tear Followup: kb - With: Emergency Department - When: As needed - Reason: Worsening of condition Followup: kb - With: Private Physician - When: 2 - 3 days - Reason: Recheck today's complaints, Continuance of care, Re-evaluation by your physician Discharge Instructions: - Discharge Summary Sheet kb - Contusion, [id number] kb - Skin Tear, [id number] kb Forms: - Medication Reconciliation Form kb - Antibiotic Education kb - Prescription Opioid Use kb - Patient Portal Instructions kb - Leadership Thank You Letter kb Signatures: Dispatcher [employer] EDDasia Torres FNP-C FNP-Santos Hay MD MD cha Martinez, Clarissa, RN RN cm10 Khris Casas, RN RN rg5
[2024-07-22 21:46] VITALS: BP 177/103; TEMP 97.3; O2SAT 100
== END 2024-07-22 21:42 | disposition home or self-care (01) ==
LOC: ER 20:34
DX: S61.210A Laceration without foreign body of right index finger without damage to nail, initial encounter (principal)
CPT/HCPCS: 96372; 99284